=== PATIENT | male | born 1960 | race Caucasian/White ===

== ENCOUNTER 2017-08-15 13:44 | Inpatient (IN) | payer SELFPAY ==
[2017-08-15] VITALS (9 sets, daily range): BP systolic 109–139; BP diastolic 63–90; PULSE 104–125; RESP 18–20; TEMP 99–102.3; O2SAT 93–95
[~2017-08-15] VITALS: Ht 162.6 cm; Wt 77.3 kg
[2017-08-15] MEDS ORDERED: ACETAMINOPHEN 325 MG TAB PO ONE (15:15)
[2017-08-15 15:29] LABS: AUTOMATED NEUTROPHIL # 35.9 TH/MM3 (1.8-7.7); BASOPHIL % 0.1 % (0.0-2.0); HEMOGLOBIN 12.2 GM/DL (13.0-17.0); LYMPH % 1.8 % (9.0-44.0); LYMPHOCYTE # 0.7 TH/MM3 (1.0-4.8); MEAN CELL VOLUME 88.4 FL (80.0-100.0); MEAN CORPUSCULAR HEMOGLOBIN 29.1 PG (27.0-34.0); MEAN CORPUSCULAR HGB CONC 32.9 % (32.0-36.0); MEAN PLATELET VOLUME 8.1 FL (7.0-11.0); MONO % 2.7 % (0.0-8.0); NEUT % 95.4 % (16.0-70.0); PLATELET COUNT 268 TH/MM3 (150-450); RED BLOOD COUNT 4.19 MIL/MM3 (4.50-5.90); RED CELL DISTRIBUTION WIDTH 16.5 % (11.6-17.2); WHITE BLOOD COUNT 37.7 TH/MM3 (4.0-11.0)
[2017-08-15] MEDS ORDERED: SODIUM CHLOR 0.9% 1000 ML INJ 1,000 ML IV ONE ×2 (15:30→16:00)
[2017-08-15 15:47] LABS: INTERNATIONAL NORMALIZED RATIO 1.1 RATIO; PROTHROMBIN TIME - PATIENT 10.7 SEC (9.8-11.6)
[2017-08-15] MEDS ORDERED: cefTRIAXone INJ 1,000 MG in SODIUM CHLORIDE 0.9% INJ 100 ML IV ONE (16:00)
[2017-08-15] MEDS ORDERED: AZITHROMYCIN INJ 500 MG in SODIUM CHLOR 0.9% 250 ML INJ 250 ML IV ONE (16:00)
--- NOTE | 2017-08-15 16:07 | PD ---
HPI Chief Complaint: Chest Pain Time Seen by Provider: 15:14 Travel History International Travel<30 days: No Contact w/Intl Traveler<30days: No Traveled to known affect area: No History of Present Illness HPI 57-year-old male that presents to the ED for evaluation of sore throat and chest discomfort. Per patient he has had the sore throat since Monday and then developed the bilateral rib pain with cough and deep breaths for the past couple days. Patient has been taking gyoc-zav-rvocozu remedies with minimal relief. Patient has been found to have high fevers and chills. He denies any other medical issues. Denies smoking but states drinking alcohol on occasion. No medical issues as far as he knows. He takes no medication a daily basis. Has been taking vwvb-arn-jsawzyo remedies with minimal relief. She states that the chest discomfort only comes when he takes a deep breath or coughs. Bilateral to the ribs. Has no allergies to medication. Denies any heart history. States that most of his pain is mostly to the throat on the right side. Has no allergies to medication. Pain per patient is 7 out of 10. No recent travel. No blood thinner use. [facility] Past Medical History Medical History: Denies Significant Hx Tetanus Vaccination: Unknown Past Surgical History Surgical History: No Previous Surgery Social History Alcohol Use: Yes Tobacco Use: No Substance Use: No Allergies-Medications (Allergen,Severity, Reaction): Coded Allergies: No Known Allergies (Unverified Adverse Reaction, Unknown, 08/15/17) Reported Meds & Prescriptions Reported Meds & Active Scripts Active No Active Prescriptions or Reported Medications Review of Systems Except as stated in HPI: all other systems reviewed are Neg Physical Exam Narrative GENERAL: Well-nourished, well-developed patient in no apparent distress. SKIN: Warm and dry. HEAD: Atraumatic. Normocephalic. EYES: Pupils equal and round reactive to light and accommodation. No scleral icterus. No injection or drainage. ENT: No nasal bleeding or discharge. Mucous membranes pink and moist. TMs are clear with no sign of infection or perforation. No mastoid tenderness. Ear canals are intact bilaterally. No lymphadenopathy. Nostril mucosa is red and moist with clear mucus noted. No sinus tenderness to palpation noted. Tonsils are enlarged and swollen with erythema. No ulvua Deviation. Tongue is midline. NECK: Trachea midline. No JVD. No meningeal signs noted CARDIOVASCULAR: Regular rate and rhythm. RESPIRATORY: No accessory muscle use. Clear to auscultation. Breath sounds equal bilaterally. GASTROINTESTINAL: Abdomen soft, non-tender, nondistended. Hepatic and splenic margins not palpable. MUSCULOSKELETAL: Extremities without clubbing, cyanosis, or edema. No obvious deformities. Full range of motion of the upper and lower extremities bilaterally. 2+ pulses bilaterally. NEUROLOGICAL: Awake and alert. No obvious cranial nerve deficits. Motor grossly within normal limits. Five out of 5 muscle strength in the arms and legs. Normal speech. PSYCHIATRIC: Appropriate mood and affect; insight and judgment normal. Data Data Last Documented VS Vital Signs Date Time Temp Pulse Resp B/P (MAP) Pulse Ox O2 Delivery O2 Flow Rate FiO2 08/15/17 16:34 100.7 08/15/17 15:43 110 18 95 Room Air Orders Orders Electrocardiogram (08/15/17 ) Chest, Pa & Lat (08/15/17 ) Complete Blood Count With Diff (08/15/17 15:15) Comprehensive Metabolic Panel (08/15/17 15:15) Ckmb (Isoenzyme) Profile (08/15/17 15:15) Troponin I (08/15/17 15:15) Prothrombin Time / Inr (Pt) (08/15/17 15:15) Act Partial Throm Time (Ptt) (08/15/17 15:15) Blood Culture (08/15/17 15:15) Lipase (08/15/17 15:15) Urinalysis - C+S If Indicated (08/15/17 15:15) Potassium, Serum (K) (08/15/17 15:15) Iv Access Insert/Monitor (08/15/17 15:15) Ecg Monitoring (08/15/17 15:15) Oximetry (08/15/17 15:15) Acetaminophen (Tylenol) (08/15/17 15:15) Lactic Acid Sepsis Protocol (08/15/17 15:15) Sodium Chlor 0.9% 1000 Ml Inj (Ns 1000 M (08/15/17 15:30) Group A Rapid Strep Screen (08/15/17 15:29) Ceftriaxone Inj (Rocephin Inj) (08/15/17 16:00) Azithromycin Inj (Zithromax Inj) (08/15/17 16:00) Sodium Chlor 0.9% 1000 Ml Inj (Ns 1000 M (08/15/17 16:00) Strep Culture (Group A) (08/15/17 15:50) Admit To Inpatient (08/15/17 ) Vital Signs (Adult) Q4H (08/15/17 16:46) Activity Oob With Assistance (08/15/17 16:46) Certified Orthoptist / Telemetry .CONTINUOUS (08/15/17 16:46) Diet Heart Healthy (08/15/17 Dinner) Sodium Chlor 0.9% 1000 Ml Inj (Ns 1000 M (08/15/17 16:46) Sodium Chloride 0.9% Flush (Ns Flush) (08/15/17 17:00) Sodium Chloride 0.9% Flush (Ns Flush) (08/15/17 21:00) Basic Metabolic Panel (Bmp) (08/16/17 06:00) Complete Blood Count With Diff (08/16/17 06:00) Case Management Consult (08/15/17 16:46) Naloxone Inj (Narcan Inj) (08/15/17 17:00) Inpatient Certification (08/15/17 ) Admit Order (Ed Use Only) (08/15/17 16:48) Ceftriaxone Inj (Rocephin Inj) (08/16/17 17:00) Azithromycin Inj (Zithromax Inj) (08/16/17 17:00) Labs Laboratory Tests Test 08/15/17 15:00 08/15/17 15:30 White Blood Count 37.7 TH/MM3 Red Blood Count 4.19 MIL/MM3 Hemoglobin 12.2 GM/DL Hematocrit 37.0 % Mean Corpuscular Volume 88.4 FL Mean Corpuscular Hemoglobin 29.1 PG Mean Corpuscular Hemoglobin Concent 32.9 % Red Cell Distribution Width 16.5 % Platelet Count 268 TH/MM3 Mean Platelet Volume 8.1 FL Neutrophils (%) (Auto) 95.4 % Lymphocytes (%) (Auto) 1.8 % Monocytes (%) (Auto) 2.7 % Eosinophils (%) (Auto) 0.0 % Basophils (%) (Auto) 0.1 % Neutrophils # (Auto) 35.9 TH/MM3 Lymphocytes # (Auto) 0.7 TH/MM3 Monocytes # (Auto) 1.0 TH/MM3 Eosinophils # (Auto) 0.0 TH/MM3 Basophils # (Auto) 0.0 TH/MM3 CBC Comment AUTO DIFF Differential Total Cells Counted 100 Neutrophils % (Manual) 89 % Band Neutrophils % 10 % Monocytes % 1 % Neutrophils # (Manual) 37.3 TH/MM3 Differential Comment FINAL DIFF MANUAL Toxic Granulation 2+ Dohle Bodies PRESENT Platelet Estimate NORMAL Platelet Morphology Comment NORMAL Basophilic Stippling FAINT Spherocytes OCC Prothrombin Time 10.7 SEC Prothromb Time International Ratio 1.1 RATIO Activated Partial Thromboplast Time 26.8 SEC Blood Urea Nitrogen 12 MG/DL Creatinine 0.90 MG/DL Random Glucose 109 MG/DL Total Protein 8.3 GM/DL Albumin 2.7 GM/DL Calcium Level 9.0 MG/DL Alkaline Phosphatase 112 U/L Aspartate Amino Transf (AST/SGOT) 40 U/L Alanine Aminotransferase (ALT/SGPT) 56 U/L Total Bilirubin 0.5 MG/DL Sodium Level 133 MEQ/L Potassium Level 4.0 MEQ/L Chloride Level 98 MEQ/L Carbon Dioxide Level 23.4 MEQ/L Anion Gap 12 MEQ/L Estimat Glomerular Filtration Rate 87 ML/MIN Lactic Acid Level 2.7 mmol/L Total Creatine Kinase 35 U/L Troponin I LESS THAN 0.02 NG/ML Lipase 38 U/L Urine Color YELLOW Urine Turbidity CLEAR Urine pH 6.0 Urine Specific [place] 1.033 Urine Protein 100 mg/dL Urine Glucose (UA) NEG mg/dL Urine Ketones TRACE mg/dL Urine Occult Blood SMALL Urine Nitrite NEG Urine Bilirubin NEG Urine Urobilinogen 4.0 MG/DL Urine Leukocyte Esterase NEG Urine RBC 1 /hpf Urine WBC 3 /hpf Urine Squamous Epithelial Cells 1 /hpf Urine Bacteria FEW /hpf Urine Hyaline Casts 2 /lpf Urine Mucus FEW /lpf Microscopic Urinalysis Comment CULT NOT INDICATED MDM Medical Decision Making Medical Screen Exam Complete: Yes Emergency Medical Condition: Yes Medical Record Reviewed: Yes Interpretation(s) CBC & BMP Diagram 08/15/17 15:00 Total Protein 8.3 H, Albumin 2.7 L, Calcium Level 9.0, Alkaline Phosphatase 112 , Aspartate Amino Transf (AST/SGOT) 40 H, Alanine Aminotransferase (ALT/SGPT) 56 , Total Bilirubin 0.5 Last Impressions Chest X-Ray 08/15/17 0000 Signed Impressions: Service Date/Time: Tuesday, August 15, 2017 15:57 - CONCLUSION: 1. Diffuse interstitial prominence with patchy bilateral lower lobe airspace disease. Differential considerations bilateral lower lobe pneumonia versus aspiration ++/- interstitial pneumonia or atypical infection given above history. Fam Atkins MD lactic acid elevated strep negative Differential Diagnosis Sepsis versus strep throat versus pharyngitis versus pneumonia versus abscess Narrative Course 57-year-old male that presents to the ED for evaluation of sore throat and chest discomfort. Patient was properly examined and was found to have signs and symptoms concerning for sepsis. Patient is tachycardic as well as has a high fever. Labs and imaging order. Patient was given Tylenol as well as fluids here. Labs and imaging show highly elevated white blood cell count, lactic acidosis as well as appears to be bilateral pneumonia. Strep negative. Likely pneumonia because of the symptoms. At this time recommendation is admission for further eval and IV antibiotics. Patient and family agree with this. Of note patient Lebanese speaker only but family is able to translate for the patient. They also feel comfortable with my Lebanese and declined translating services. Case discussed with Dr. Rodriguez who agrees to admission to the medical service Sepsis Criteria SIRS Criteria (2 or more): Temp > 100.9 or < 96.8, Heart rate over 90, WBC > 38279, < 4000 or > 10% bands Sepsis Criteria (SIRS+source): Infect source susp/known Severe Sepsis (+one): Lactate >2 Criteria Outcome: Meets severe sepsis criteria Diagnosis Primary Impression: Pneumonia Qualified Codes: J18.1 - Lobar pneumonia, unspecified organism Additional Impression: Sepsis Qualified Codes: A41.9 - Sepsis, unspecified organism Admitting Information Admitting Physician Requests: Admit Scripts No Active Prescriptions or Reported MedDaryl Perez Aug 15, 2017 16:07
[2017-08-15 16:13] LABS: BACTERIA, URINE FEW /hpf; BILIRUBIN, URINE NEG (NEG); BLOOD, URINE SMALL (NEG); GLUCOSE,URINE NEG (NEG); HYALINE CAST, URINE 2 /lpf (RARE); KETONE, URINE TRACE mg/dL (NEG); MUCUS URINE FEW /lpf (OCC); NITRITE,URINE NEG (NEG); SQUAMOUS EPITHELIAL CELL URINE 1 /hpf (0-5); URINE COLOR YELLOW (YELLW/STRAW); URINE LEUKOCYTE ESTERASE NEG (NEG)
--- NOTE | 2017-08-15 16:13 | RADRPT ---
EXAM DATE/TIME: 08/15/2017 15:57 [facility] COMPARISON: No previous studies available for comparison. INDICATIONS : Cough, congestion, fever, chest pain. MEDICAL HISTORY : None. SURGICAL HISTORY : None. ENCOUNTER: Initial ACUITY: 3 days PAIN SCORE: 4/10 LOCATION: Bilateral chest FINDINGS: Poor inspiratory effort. Diffuse interstitial prominence with bilateral lower lobe patchy airspace di sease. Cardiomediastinal contours are within normal limits. Bony thorax is intact. CONCLUSION: 1. Diffuse interstitial prominence with patchy bilateral lower lobe airspace disease. Differential co nsiderations bilateral lower lobe pneumonia versus aspiration +/- interstitial pneumonia or atypical infection given above history. Fam Atkins MD on August 15, 2017 at 16:08 Board Certified Radiologist. This report was verified electronically.
[2017-08-15 16:26] LABS: BANDS 10 % (0-6); DOHLE BODIES PRESENT (NONE SEEN); LACTIC ACID SEPSIS PROTOCOL 2.7 mmol/L (0.4-2.0); MONOCYTES 1 % (0-8); NEUTROPHIL # MANUAL DIFF 37.3 TH/MM3 (1.8-7.7); POLYS (SEG NEUTROPHILS) 89 % (16-70); TOXIC GRANULATION 2+ (NORMAL)
[2017-08-15 16:27] LABS: ALBUMIN 2.7 GM/DL (3.4-5.0); ALT (GPT) 56 U/L (12-78); AST (GOT) 40 U/L (15-37); BICARBONATE 23.4 MEQ/L (21.0-32.0); BLOOD UREA NITROGEN 12 MG/DL (7-18); CHLORIDE 98 MEQ/L (98-107); GLOMERULAR FILTRATION RATE 87 ML/MIN (>89); GLUCOSE,RANDOM 109 MG/DL (74-106); SODIUM (NA) 133 MEQ/L (136-145); SPHEROCYTES OCC (NORMAL)
[2017-08-15 16:31] LABS: ALKALINE PHOSPHATASE 112 U/L (45-117); TOTAL BILIRUBIN ADULT 0.5 MG/DL (0.2-1.0); TOTAL PROTEIN 8.3 GM/DL (6.4-8.2); TROPONIN I LESS THAN 0.02 NG/ML (0.02-0.05)
[2017-08-15] MEDS ORDERED: SODIUM CHLOR 0.9% 1000 ML INJ 1,000 ML IV SCH (16:46)
[2017-08-15] MEDS ORDERED: SODIUM CHLORIDE 0.9% FLUSH 10 ML FLUSH IV FLUSH PRN (17:00)
[2017-08-15] MEDS ORDERED: NALOXONE HCL 0.4 MG/ML AMP IV PUSH PRN (17:00)
--- NOTE | 2017-08-15 17:28 | PD ---
Physical Exam Narrative GENERAL: 57-year-old male in no apparent distress SKIN: Focused skin assessment warm/dry. HEAD: Atraumatic. Normocephalic. EYES: Pupils equal and round. No scleral icterus. No injection or drainage. ENT: No nasal bleeding or discharge. Mucous membranes pink and moist. NECK: Trachea midline. CARDIOVASCULAR: Regular rate and rhythm. RESPIRATORY: No accessory muscle use. No increased effort MUSCULOSKELETAL: No obvious deformities. No clubbing. No cyanosis. NEUROLOGICAL: Awake and alert. No obvious cranial nerve deficits. Motor grossly within normal limits. Normal speech. Data Data Last Documented VS Vital Signs Date Time Temp Pulse Resp B/P (MAP) Pulse Ox O2 Delivery O2 Flow Rate FiO2 08/15/17 16:34 100.7 08/15/17 15:43 110 18 95 Room Air Orders Orders Electrocardiogram (08/15/17 ) Chest, Pa & Lat (08/15/17 ) Complete Blood Count With Diff (08/15/17 15:15) Comprehensive Metabolic Panel (08/15/17 15:15) Ckmb (Isoenzyme) Profile (08/15/17 15:15) Troponin I (08/15/17 15:15) Prothrombin Time / Inr (Pt) (08/15/17 15:15) Act Partial Throm Time (Ptt) (08/15/17 15:15) Blood Culture (08/15/17 15:15) Lipase (08/15/17 15:15) Urinalysis - C+S If Indicated (08/15/17 15:15) Potassium, Serum (K) (08/15/17 15:15) Iv Access Insert/Monitor (08/15/17 15:15) Ecg Monitoring (08/15/17 15:15) Oximetry (08/15/17 15:15) Acetaminophen (Tylenol) (08/15/17 15:15) Lactic Acid Sepsis Protocol (08/15/17 15:15) Sodium Chlor 0.9% 1000 Ml Inj (Ns 1000 M (08/15/17 15:30) Group A Rapid Strep Screen (08/15/17 15:29) Ceftriaxone Inj (Rocephin Inj) (08/15/17 16:00) Azithromycin Inj (Zithromax Inj) (08/15/17 16:00) Sodium Chlor 0.9% 1000 Ml Inj (Ns 1000 M (08/15/17 16:00) Strep Culture (Group A) (08/15/17 15:50) Admit To Inpatient (08/15/17 ) Vital Signs (Adult) Q4H (08/15/17 16:46) Activity Oob With Assistance (08/15/17 16:46) Mental Measurements Teacher / Telemetry .CONTINUOUS (08/15/17 16:46) Diet Heart Healthy (08/15/17 Dinner) Sodium Chlor 0.9% 1000 Ml Inj (Ns 1000 M (08/15/17 16:46) Sodium Chloride 0.9% Flush (Ns Flush) (08/15/17 17:00) Sodium Chloride 0.9% Flush (Ns Flush) (08/15/17 21:00) Basic Metabolic Panel (Bmp) (08/16/17 06:00) Complete Blood Count With Diff (08/16/17 06:00) Case Management Consult (08/15/17 16:46) Naloxone Inj (Narcan Inj) (08/15/17 17:00) Inpatient Certification (08/15/17 ) Admit Order (Ed Use Only) (08/15/17 16:48) Ceftriaxone Inj (Rocephin Inj) (08/16/17 17:00) Azithromycin Inj (Zithromax Inj) (08/16/17 17:00) Labs Laboratory Tests Test 08/15/17 15:00 08/15/17 15:30 White Blood Count 37.7 TH/MM3 Red Blood Count 4.19 MIL/MM3 Hemoglobin 12.2 GM/DL Hematocrit 37.0 % Mean Corpuscular Volume 88.4 FL Mean Corpuscular Hemoglobin 29.1 PG Mean Corpuscular Hemoglobin Concent 32.9 % Red Cell Distribution Width 16.5 % Platelet Count 268 TH/MM3 Mean Platelet Volume 8.1 FL Neutrophils (%) (Auto) 95.4 % Lymphocytes (%) (Auto) 1.8 % Monocytes (%) (Auto) 2.7 % Eosinophils (%) (Auto) 0.0 % Basophils (%) (Auto) 0.1 % Neutrophils # (Auto) 35.9 TH/MM3 Lymphocytes # (Auto) 0.7 TH/MM3 Monocytes # (Auto) 1.0 TH/MM3 Eosinophils # (Auto) 0.0 TH/MM3 Basophils # (Auto) 0.0 TH/MM3 CBC Comment AUTO DIFF Differential Total Cells Counted 100 Neutrophils % (Manual) 89 % Band Neutrophils % 10 % Monocytes % 1 % Neutrophils # (Manual) 37.3 TH/MM3 Differential Comment FINAL DIFF MANUAL Toxic Granulation 2+ Dohle Bodies PRESENT Platelet Estimate NORMAL Platelet Morphology Comment NORMAL Basophilic Stippling FAINT Spherocytes OCC Prothrombin Time 10.7 SEC Prothromb Time International Ratio 1.1 RATIO Activated Partial Thromboplast Time 26.8 SEC Blood Urea Nitrogen 12 MG/DL Creatinine 0.90 MG/DL Random Glucose 109 MG/DL Total Protein 8.3 GM/DL Albumin 2.7 GM/DL Calcium Level 9.0 MG/DL Alkaline Phosphatase 112 U/L Aspartate Amino Transf (AST/SGOT) 40 U/L Alanine Aminotransferase (ALT/SGPT) 56 U/L Total Bilirubin 0.5 MG/DL Sodium Level 133 MEQ/L Potassium Level 4.0 MEQ/L Chloride Level 98 MEQ/L Carbon Dioxide Level 23.4 MEQ/L Anion Gap 12 MEQ/L Estimat Glomerular Filtration Rate 87 ML/MIN Lactic Acid Level 2.7 mmol/L Total Creatine Kinase 35 U/L Troponin I LESS THAN 0.02 NG/ML Lipase 38 U/L Urine Color YELLOW Urine Turbidity CLEAR Urine pH 6.0 Urine Specific [place] 1.033 Urine Protein 100 mg/dL Urine Glucose (UA) NEG mg/dL Urine Ketones TRACE mg/dL Urine Occult Blood SMALL Urine Nitrite NEG Urine Bilirubin NEG Urine Urobilinogen 4.0 MG/DL Urine Leukocyte Esterase NEG Urine RBC 1 /hpf Urine WBC 3 /hpf Urine Squamous Epithelial Cells 1 /hpf Urine Bacteria FEW /hpf Urine Hyaline Casts 2 /lpf Urine Mucus FEW /lpf Microscopic Urinalysis Comment CULT NOT INDICATED MDM Supervised Visit with OMAR: Yes Interpretation(s) CBC & BMP Diagram 08/15/17 15:00 Total Protein 8.3 H, Albumin 2.7 L, Calcium Level 9.0, Alkaline Phosphatase 112 , Aspartate Amino Transf (AST/SGOT) 40 H, Alanine Aminotransferase (ALT/SGPT) 56 , Total Bilirubin 0.5 Last 24 hours Impressions Chest X-Ray 08/15/17 0000 Signed Impressions: Service Date/Time: Tuesday, August 15, 2017 15:57 - CONCLUSION: 1. Diffuse interstitial prominence with patchy bilateral lower lobe airspace disease. Differential considerations bilateral lower lobe pneumonia versus aspiration ++/- interstitial pneumonia or atypical infection given above history. Fam Atkins MD Narrative Course I, Dr. sen, have reviewed the advance practice practitioner's documentation and am in agreement, met with the patient face to face, made the diagnosis, and the medical decision making was done by me. *My assessment and Findings: 57-year-old male with pneumonia with concurrent sepsis without associated hypotension. He was given antibiotics and IV fluids and will be admitted to the hospital for further care Sepsis Criteria SIRS Criteria (2 or more): Temp > 100.9 or < 96.8, Heart rate over 90, WBC > 28484, < 4000 or > 10% bands Sepsis Criteria (SIRS+source): Infect source susp/known Severe Sepsis (+one): Lactate >2 Criteria Outcome: Meets severe sepsis criteria Diagnosis Primary Impression: Pneumonia Qualified Codes: J18.1 - Lobar pneumonia, unspecified organism Additional Impression: Sepsis Qualified Codes: A41.9 - Sepsis, unspecified organism Admitting Information Admitting Physician Requests: Admit Scripts No Active Prescriptions or Reported Meds July Sen MD Aug 15, 2017 17:27
--- NOTE | 2017-08-15 19:44 | HHI.HP ---
HPI Service [facility] Primary Care Physician No Primary Care Physician Admission Diagnosis acute bilateral pneumonia, severe sepsis Diagnoses: Travel History International Travel<30 Days: No Contact w/Intl Traveler <30 Da: No Traveled to Known Affected Are: No History of Present Illness hx from patient, ER PA communication and review of records pt is a jamaican speaker and family at bedside help translate per patient's choice having pain in his chest and bilateral ribs starting yesterday this am was could not breathe no cough no sputum fever no nausea, no vomiting, no diarrhea no long distance travel no sick contacts no NH or [facility] hx claims short of breath is only this am but he worked on monday afternoon and could not work today or yesterday works in [employer] business was taking nyquil at home for soar throat Review of Systems Except as stated in HPI: all other systems reviewed are Neg Past Family Social History Past Medical History none Past Surgical History none Allergies: Coded Allergies: No Known Allergies (Unverified Allergy, Unknown, 08/15/17) Family History none that he knows of Social History never smoked 3- 4 beers a day ; last drink was on monday- about 3 days ago no drugs Physical Exam Vital Signs Vital Signs Date Time Temp Pulse Resp B/P (MAP) Pulse Ox O2 Delivery O2 Flow Rate FiO2 08/15/17 18:37 Nasal Cannula 3.00 08/15/17 18:15 99.0 109 19 112/64 (80) 93 08/15/17 18:09 104 18 109/63 (78) 95 Nasal Cannula 2.00 08/15/17 17:47 104 18 109/67 (81) 95 Nasal Cannula 08/15/17 16:34 100.7 08/15/17 15:43 102.1 110 18 128/90 (103) 95 Room Air 08/15/17 15:43 102.1 110 18 128/90 (103) 95 Room Air 08/15/17 15:24 18 Room Air 08/15/17 14:26 102.3 125 20 139/76 (97) 95 Physical Exam GENERAL: This is a well-nourished, well-developed patient, in moderate distress from dyspnea- SKIN: warm, tactile temp, red HEAD: Atraumatic. Normocephalic. No temporal or scalp tenderness. EYES: No scleral icterus. No injection or drainage. ENT: Nose without bleeding, purulent drainage or septal hematoma. Airway patent. NECK: Trachea midline. No JVD Supple, nontender, no meningeal signs. CARDIOVASCULAR: Regular rate and rhythm without murmurs, gallops, or rubs. RESPIRATORY: bilateral crepitations, up to mid lung, shallow breathing, + JVD GASTROINTESTINAL: Abdomen soft, non-tender, nondistended. No guarding. MUSCULOSKELETAL: Extremities without clubbing, cyanosis, or edema. No calf tenderness. NEUROLOGICAL: Awake and alert. Motor and sensory grossly within normal limits. Normal speech. Laboratory Laboratory Tests Test 08/15/17 15:00 08/15/17 15:30 08/15/17 17:40 White Blood Count 37.7 Red Blood Count 4.19 Hemoglobin 12.2 Hematocrit 37.0 Mean Corpuscular Volume 88.4 Mean Corpuscular Hemoglobin 29.1 Mean Corpuscular Hemoglobin Concent 32.9 Red Cell Distribution Width 16.5 Platelet Count 268 Mean Platelet Volume 8.1 Neutrophils (%) (Auto) 95.4 Lymphocytes (%) (Auto) 1.8 Monocytes (%) (Auto) 2.7 Eosinophils (%) (Auto) 0.0 Basophils (%) (Auto) 0.1 Neutrophils # (Auto) 35.9 Lymphocytes # (Auto) 0.7 Monocytes # (Auto) 1.0 Eosinophils # (Auto) 0.0 Basophils # (Auto) 0.0 CBC Comment AUTO DIFF Differential Total Cells Counted 100 Neutrophils % (Manual) 89 Band Neutrophils % 10 Monocytes % 1 Neutrophils # (Manual) 37.3 Differential Comment FINAL DIFF MANUAL Toxic Granulation 2+ Dohle Bodies PRESENT Platelet Estimate NORMAL Platelet Morphology Comment NORMAL Basophilic Stippling FAINT Spherocytes OCC Prothrombin Time 10.7 Prothromb Time International Ratio 1.1 Activated Partial Thromboplast Time 26.8 Blood Urea Nitrogen 12 Creatinine 0.90 Random Glucose 109 Total Protein 8.3 Albumin 2.7 Calcium Level 9.0 Alkaline Phosphatase 112 Aspartate Amino Transf (AST/SGOT) 40 Alanine Aminotransferase (ALT/SGPT) 56 Total Bilirubin 0.5 Sodium Level 133 Potassium Level 4.0 Chloride Level 98 Carbon Dioxide Level 23.4 Anion Gap 12 Estimat Glomerular Filtration Rate 87 Lactic Acid Level 2.7 2.1 Total Creatine Kinase 35 Troponin I LESS THAN 0.02 Lipase 38 Urine Color YELLOW Urine Turbidity CLEAR Urine pH 6.0 Urine Specific [place] 1.033 Urine Protein 100 Urine Glucose (UA) NEG Urine Ketones TRACE Urine Occult Blood SMALL Urine Nitrite NEG Urine Bilirubin NEG Urine Urobilinogen 4.0 Urine Leukocyte Esterase NEG Urine RBC 1 Urine WBC 3 Urine Squamous Epithelial Cells 1 Urine Bacteria FEW Urine Hyaline Casts 2 Urine Mucus FEW Microscopic Urinalysis Comment CULT NOT INDICATED Date/Time Source Procedure Growth Status 08/15/17 15:05 Blood Peripheral Aerobic Blood Culture Pending Received 08/15/17 15:05 Blood Peripheral Anaerobic Blood Culture Pending Received 08/15/17 15:50 Throat Group A Streptococcus Screen Pending Received Result Diagram: 08/15/17 1500 08/15/17 1500 Imaging Last 48 hours Impressions Chest X-Ray 08/15/17 0000 Signed Impressions: Service Date/Time: Tuesday, August 15, 2017 15:57 - CONCLUSION: 1. Diffuse interstitial prominence with patchy bilateral lower lobe airspace disease. Differential considerations bilateral lower lobe pneumonia versus aspiration ++/- interstitial pneumonia or atypical infection given above history. MD Mu Holland VTE Risk Assessment Caprini VTE Risk Assessment: Mod/High Risk (score >= 2) Caprini Risk Assessment Model Point Value = 1 Point Value = 2 Point Value = 3 Point Value = 5 Age 41-60 Minor surgery BMI > 25 kg/m2 Swollen legs Varicose veins or History of unexplained or recurrent spontaneous Oral contraceptives or hormone replacement Sepsis (< 1 month) Serious lung disease, including pneumonia (< 1 month) Abnormal pulmonary function Acute myocardial infarction Congestive heart failure (< 1 month) History of inflammatory bowel disease Medical patient at bed rest Age 61-74 Arthroscopic surgery Major open surgery (> 45 min) Laparoscopic surgery (> 45 min) Malignancy Confined to bed (> 72 hours) Immobilizing plaster cast Central venous access Age >= 75 History of VTE Family history of VTE Factor V Leiden Prothrombin [id number] Lupus anticoagulant Anticardiolipin antibodies Elevated serum homocysteine Heparin-induced thrombocytopenia Other congenital or acquired thrombophilia Stroke (< 1 month) Elective arthroplasty Hip, pelvis, or leg fracture Acute spinal cord injury (< 1 month) Prophylaxis Regimen Total Risk Factor Score Risk Level Prophylaxis Regimen 0-1 Low Early ambulation 2 Moderate Order ONE of the following: *Sequential Compression Device (SCD) *Heparin 5000 units SQ BID 3-4 Higher Order ONE of the following medications: *Heparin 5000 units SQ TID *Enoxaparin/Lovenox 40 mg SQ daily (WT < 150 kg, CrCl > 30 mL/min) *Enoxaparin/Lovenox 30 mg SQ daily (WT < 150 kg, CrCl > 10-29 mL/min) *Enoxaparin/Lovenox 30 mg SQ BID (WT < 150 kg, CrCl > 30 mL/min) AND/OR *Sequential Compression Device (SCD) 5 or more Highest Order ONE of the following medications: *Heparin 5000 units SQ TID (Preferred with Epidurals) *Enoxaparin/Lovenox 40 mg SQ daily (WT < 150 kg, CrCl > 30 mL/min) *Enoxaparin/Lovenox 30 mg SQ daily (WT < 150 kg, CrCl > 10-29 mL/min) *Enoxaparin/Lovenox 30 mg SQ BID (WT < 150 kg, CrCl > 30 mL/min) AND *Sequential Compression Device (SCD) Assessment and Plan Assessment and Plan Impression: severe sepsis- source, pneumonia respiratory distress impending ARDS Hypoxia due to sepsis possible underlying heart failure with fluid overload possible impending etoh withdrawal Plan: received 2 L fluid bolus in ER and at maintainence rate at 100cc/hr will stop for now bnp stat bedside echo if possible by intesivist for ivc /hydration status received rocephin and azithro in er switched to levofloxacin 750mg iv q24hrs give first dose levofloxacin po tonight ciwa thiamine transfer to [facility] breeding technician consult- discussed with breeding technician on the phone dvt prophylaxis with lovenox Discussed Condition With patient, family members at bedside, ER PA, nursing staff Physician Certification 2 Midnight Certification Type: Admission for Inpatient Services Order for Inpatient Services The services are ordered in accordance with Medicare regulations or non- Medicare payer requirements, as applicable. In the case of services not specified as inpatient-only, they are appropriately provided as inpatient services in accordance with the 2-midnight benchmark. Estimated LOS (days): 4 days is the estimated time the patient will need to remain in the hospital, assuming treatment plan goals are met and no additional complications. Post-Hospital Plan: Home Oung,Twethida MD Aug 15, 2017 19:44
[2017-08-15] MEDS ORDERED: THIAMINE HCL 100 MG TAB PO ONE (20:15)
[2017-08-15] MEDS ORDERED: LORazepam 1 MG TAB PO PRN (20:15)
[2017-08-15] MEDS ORDERED: LORazepam 2 MG TAB PO PRN (20:15)
[2017-08-15] MEDS ORDERED: LEVOFLOXACIN 750 MG TAB PO ONE (20:15)
[2017-08-15] MEDS ORDERED: LORazepam 2 MG/ML VIAL IV PUSH PRN ×3 (20:15)
[2017-08-15] MEDS ORDERED: FLUMAZENIL 0.5 MG/5 ML VIAL IV PUSH PRN (20:15)
[2017-08-15] MEDS: SODIUM CHLORIDE 0.9% FLUSH 10 ML FLUSH IV FLUSH SCH (21:18)
--- NOTE | 2017-08-15 21:20 | PD.CONS ---
HPI Service Critical Care Medicine Consult Requested By Primary Care Physician No Primary Care Physician History of Present Illness 57-year-old Tajik-speaking only male presents for evaluation of sore throat and chest discomfort. Per patient he has had the sore throat since Monday and then developed the bilateral rib pain with cough and deep breaths for the past couple days. Patient has been taking [id number] medication with minimal relief. He has been found to have high fevers and chills. He denies any other medical issues. Denies smoking but states drinking alcohol on a daily occasion. No medical issues as far as he knows. Review of Systems Constitutional: COMPLAINS OF: Diaphoretic episodes, Fatigue, Fever, Chills, Night Sweats, DENIES: Weight gain, Weight loss, Dizziness, Change in appetite Endocrine: DENIES: Heat/cold intolerance, Polydipsia, Polyuria, Polyphagia Eyes: DENIES: Blurred vision, Diplopia, Eye inflammation, Eye pain, Vision loss , Photosensitivity, Double Vision Ears, nose, mouth, throat: DENIES: Tinnitus, Hearing loss, Vertigo, Nasal discharge, Oral lesions, Throat pain, Hoarseness, Ear Pain, Running Nose, Epistaxis, Sinus Pain, Toothache, Odynophagia Respiratory: COMPLAINS OF: Cough, Sputum production, Shortness of breath, DENIES: Apneas, Snoring, Wheezing, Hemoptysis Cardiovascular: COMPLAINS OF: Chest pain, Dyspnea on Exertion, DENIES: Palpitations, Syncope, PND, Lower Extremity Edema, Orthopnea, Claudication Gastrointestinal: DENIES: Abdominal pain, Black stools, Bloody stools, Constipation, Diarrhea, Nausea, Vomiting, Difficulty Swallowing, Anorexia Genitourinary: DENIES: Sexual dysfunction, Urinary frequency, Urinary incontinence, Urgency, Hematuria, Dysuria, Nocturia, Penile Discharge, Testicular Pain, Testicular Swelling Musculoskeletal: DENIES: Joint pain, Muscle aches, Stiffness, Joint Swelling, Back pain, Neck pain Integumentary: DENIES: Abnormal pigmentation, Nail changes, Pruritus, Rash Hematologic/lymphatic: DENIES: Bruising, Lymphadenopathy Immunologic/allergic: DENIES: Eczema, Urticaria Neurologic: DENIES: Abnormal gait, Headache, Localized weakness, Paresthesias, Seizures, Speech Problems, Tremor, Poor Balance Psychiatric: DENIES: Anxiety, Confusion, Mood changes, Depression, Hallucinations, Agitation, Suicidal Ideation, Homicidal Ideation, Delusions Past Family Social History Allergies: Coded Allergies: No Known Allergies (Unverified Allergy, Unknown, 08/15/17) Past Medical History No significant past medical history Past Surgical History None Reported Medications Reported Meds & Active Scripts Active No Active Prescriptions or Reported Medications Active Ordered Medications Current Medications Medications (Trade) Dose Ordered Sig/Santo Route PRN Reason Start Time Stop Time Status Last Admin Dose Admin Sodium Chloride (NS Flush) 2 ml UNSCH PRN IV FLUSH FLUSH AFTER USING IV ACCESS 08/15/17 17:00 Sodium Chloride (NS Flush) 2 ml BID IV FLUSH 08/15/17 21:00 08/15/17 21:18 Naloxone HCl (Narcan Inj) 0.4 mg UNSCH PRN IV PUSH SEE LABEL COMMENTS 08/15/17 17:00 Thiamine HCl (Vitamin B1) 100 mg DAILY PO 08/16/17 09:00 Flumazenil (Romazicon Inj) 0.2 mg Q1M PRN IV PUSH SEE LABEL COMMENTS 08/15/17 20:15 Lorazepam (Ativan) 1 mg Q4H PRN PO CIWA 8 - 10 08/15/17 20:15 Lorazepam (Ativan Inj) 1 mg Q4H PRN IV PUSH CIWA 8 - 10 08/15/17 20:15 Lorazepam (Ativan) 2 mg Q2H PRN PO CIWA 11-14 08/15/17 20:15 Lorazepam (Ativan Inj) 2 mg Q2H PRN IV PUSH CIWA 11-14 08/15/17 20:15 Lorazepam (Ativan Inj) 2 mg Q1H PRN IV PUSH CIWA 15-20 08/15/17 20:15 Lorazepam (Ativan Inj) 2 mg Q15M PRN IV PUSH CIWA > 20 08/15/17 20:15 Enoxaparin Sodium (Lovenox Inj) 40 mg Q24H SQ 08/16/17 09:00 Pneumococcal Polyvalent Vaccine (Pneumovax-23 Inj) 25 mcg ONCE ONCE IM 08/16/17 10:00 08/16/17 10:01 Influenza Virus Vaccine (Flu (Quadrivalent) Vaccine Inj) 0.5 ml ONCE ONCE IM 08/16/17 10:00 08/16/17 10:01 Sodium Chloride 1,000 ml @ 155 mls/hr Q6H28M IV 08/15/17 21:30 08/15/17 21:30 Pharmacy Profile Note 0 ml @ 0 mls/hr UNSCH OTHER 08/15/17 21:30 Piperacillin Sod/ Tazobactam Sod 100 ml @ 200 mls/hr Q6H IV 08/15/17 22:00 08/15/17 22:00 Azithromycin 500 mg/Sodium Chloride 250 ml @ 250 mls/hr Q24H IV 08/16/17 16:00 Miscellaneous Information Patient in critical care unit? Ass... [id number] 08/15/17 21:45 Chlorhexidine Gluconate (Chlorhexidine 2% Cloth) 3 pack DAILY@04 TOPICAL 08/16/17 04:00 08/20/17 04:01 Chlorhexidine Gluconate (Chlorhexidine 2% Cloth) 3 pack UNSCH PRN TOPICAL HYGIENIC CARE 08/15/17 21:45 08/20/17 21:31 Family History No family history significant of early coronary artery disease or malignancy Social History Alcohol Use: Yes, occasionally 2-3 beers a day Tobacco Use: No Substance Use: No Physical Exam Vital Signs Vital Signs Date Time Temp Pulse Resp B/P (MAP) Pulse Ox O2 Delivery O2 Flow Rate FiO2 08/15/17 20:57 101.1 114 20 127/80 (96) 08/15/17 18:37 Nasal Cannula 3.00 08/15/17 18:15 99.0 109 19 112/64 (80) 93 08/15/17 18:09 104 18 109/63 (78) 95 Nasal Cannula 2.00 08/15/17 17:47 104 18 109/67 (81) 95 Nasal Cannula 08/15/17 16:34 100.7 08/15/17 15:43 102.1 110 18 128/90 (103) 95 Room Air 08/15/17 15:43 102.1 110 18 128/90 (103) 95 Room Air 08/15/17 15:24 18 Room Air 08/15/17 14:26 102.3 125 20 139/76 (97) 95 Physical Exam GENERAL: Well-nourished, well-developed patient. In moderate distress SKIN: Warm and dry. HEAD: Normocephalic. EYES: No scleral icterus. No injection or drainage. NECK: Supple, trachea midline. No JVD or lymphadenopathy. CARDIOVASCULAR: Regular rate and rhythm without murmurs, gallops, or rubs. RESPIRATORY: Breath sounds equal bilaterally. No accessory muscle use. Rales and rhonchi bilaterally GASTROINTESTINAL: Abdomen soft, non-tender, nondistended. MUSCULOSKELETAL: No cyanosis, or edema. BACK: Nontender without obvious deformity. NEURO EXAM: GCS: 15 Mental Status: The patient is alert and oriented to person, place, and time with normal speech. Cranial Nerves: Visual acuity intact bilaterally. Visual torres normal in all quadrants. Pupils are round, reactive to light. Extraocular movements are intact without ptosis. Hearing is normal bilaterally. Voice is normal. Tongue protrudes midline and moves symmetrically. Laboratory Laboratory Tests Test 08/15/17 15:00 08/15/17 15:30 08/15/17 17:40 White Blood Count 37.7 Red Blood Count 4.19 Hemoglobin 12.2 Hematocrit 37.0 Mean Corpuscular Volume 88.4 Mean Corpuscular Hemoglobin 29.1 Mean Corpuscular Hemoglobin Concent 32.9 Red Cell Distribution Width 16.5 Platelet Count 268 Mean Platelet Volume 8.1 Neutrophils (%) (Auto) 95.4 Lymphocytes (%) (Auto) 1.8 Monocytes (%) (Auto) 2.7 Eosinophils (%) (Auto) 0.0 Basophils (%) (Auto) 0.1 Neutrophils # (Auto) 35.9 Lymphocytes # (Auto) 0.7 Monocytes # (Auto) 1.0 Eosinophils # (Auto) 0.0 Basophils # (Auto) 0.0 CBC Comment AUTO DIFF Differential Total Cells Counted 100 Neutrophils % (Manual) 89 Band Neutrophils % 10 Monocytes % 1 Neutrophils # (Manual) 37.3 Differential Comment FINAL DIFF MANUAL Toxic Granulation 2+ Dohle Bodies PRESENT Platelet Estimate NORMAL Platelet Morphology Comment NORMAL Basophilic Stippling FAINT Spherocytes OCC Prothrombin Time 10.7 Prothromb Time International Ratio 1.1 Activated Partial Thromboplast Time 26.8 Blood Urea Nitrogen 12 Creatinine 0.90 Random Glucose 109 Total Protein 8.3 Albumin 2.7 Calcium Level 9.0 Alkaline Phosphatase 112 Aspartate Amino Transf (AST/SGOT) 40 Alanine Aminotransferase (ALT/SGPT) 56 Total Bilirubin 0.5 Sodium Level 133 Potassium Level 4.0 Chloride Level 98 Carbon Dioxide Level 23.4 Anion Gap 12 Estimat Glomerular Filtration Rate 87 Lactic Acid Level 2.7 2.1 Total Creatine Kinase 35 Troponin I LESS THAN 0.02 B-Type Natriuretic Peptide 185 Lipase 38 Urine Color YELLOW Urine Turbidity CLEAR Urine pH 6.0 Urine Specific [place] 1.033 Urine Protein 100 Urine Glucose (UA) NEG Urine Ketones TRACE Urine Occult Blood SMALL Urine Nitrite NEG Urine Bilirubin NEG Urine Urobilinogen 4.0 Urine Leukocyte Esterase NEG Urine RBC 1 Urine WBC 3 Urine Squamous Epithelial Cells 1 Urine Bacteria FEW Urine Hyaline Casts 2 Urine Mucus FEW Microscopic Urinalysis Comment CULT NOT INDICATED Date/Time Source Procedure Growth Status 08/15/17 15:05 Blood Peripheral Aerobic Blood Culture Pending Received 08/15/17 15:05 Blood Peripheral Anaerobic Blood Culture Pending Received 08/15/17 15:50 Throat Group A Streptococcus Screen Pending Received Result Diagram: 08/15/17 1500 08/15/17 1500 Assessment and Plan Assessment and Plan Pneumonia -Community-acquired -Urine antigen -Blood cultures -Sputum cultures -Broad-spectrum antibiotics -De-escalate per sensitivity Severe sepsis -Due to above -Broad-spectrum antibiotic -Aggressive IV fluid hydration -Monitor lactic acidosis trend Alcohol use disorder -Questionable -Thiamine folate and multivitamins IV -CIWA protocol -Monitor for withdrawal DVT GI prophylaxis -Jadiel's and SCDs -Subcu Lovenox -Regular diet Critical Care: The total critical care time was 35 minutes. Time to perform other separately billable procedures was not included in the critical care time. Joesph Marshall MD Aug 15, 2017 9:20 pm
[2017-08-15] MEDS ORDERED: VANCOMYCIN INJ 1,000 MG in SODIUM CHLOR 0.9% 250 ML INJ 250 ML IV ONE (21:30)
[2017-08-15] MEDS: SODIUM CHLOR 0.9% 1000 ML INJ 1,000 ML IV SCH (21:30)
[2017-08-15] MEDS ORDERED: Vancomycin Consult Pharmacy 1 EA OTHER SCH (21:30)
[2017-08-15] MEDS ORDERED: CHLORHEXIDINE GLUCONATE 2 % 1 PACK (2 CLOTHS)(extra cloths) TOPICAL PRN (21:45)
[2017-08-15] MEDS: PIPERACIL-TAZO 4.5 GM PREMIX 100 ML IV SCH (22:00)
[2017-08-15] MEDS ORDERED: VANCOMYCIN INJ 2,300 MG in SODIUM CHLORID 0.9% 500 ML INJ 500 ML IV ONE (22:30)
[2017-08-16] VITALS (17 sets, daily range): BP systolic 135–160; BP diastolic 84–91; PULSE 90–119; RESP 22–44; TEMP 98.2–102.6; O2SAT 92–95
[2017-08-16] MEDS: SODIUM CHLOR 0.9% 1000 ML INJ 1,000 ML IV SCH ×2 (03:58→13:27)
[2017-08-16] MEDS: CHLORHEXIDINE GLUCONATE 2 % 1 PACK (2 CLOTHS)(taper/protocol) TOPICAL SCH (04:00)
[2017-08-16] MEDS: PIPERACIL-TAZO 4.5 GM PREMIX 100 ML IV SCH ×4 (05:12→20:58)
[2017-08-16] MEDS: KETOROLAC TROMETHAMINE 60 MG/2 ML (IM) VIAL IM SCH ×3 (05:13→20:58)
[2017-08-16] MEDS: LORazepam 2 MG/ML VIAL IV PUSH PRN ×3 (05:28→20:57)
[2017-08-16] MEDS ORDERED: MULTIVITAMIN INJ 10 ML, THIAMINE INJ 100 MG, FOLIC ACID INJ 1 MG in SODIUM CHLORID 0.9%... IV ONE (06:00)
[2017-08-16 07:29] LABS: AUTOMATED NEUTROPHIL # 28.9 TH/MM3 (1.8-7.7); EOSINOPHIL # 0.1 TH/MM3 (0-0.4); EOSINOPHIL % 0.3 % (0.0-4.0); HEMATOCRIT 33.2 % (39.0-51.0); HEMOGLOBIN 10.9 GM/DL (13.0-17.0); LYMPH % 1.8 % (9.0-44.0); LYMPHOCYTE # 0.6 TH/MM3 (1.0-4.8); MEAN CELL VOLUME 88.8 FL (80.0-100.0); MEAN CORPUSCULAR HEMOGLOBIN 29.2 PG (27.0-34.0); MEAN CORPUSCULAR HGB CONC 32.9 % (32.0-36.0); MEAN PLATELET VOLUME 7.9 FL (7.0-11.0); MONOCYTE # 0.9 TH/MM3 (0-0.9); NEUT % 94.9 % (16.0-70.0); PLATELET COUNT 232 TH/MM3 (150-450); RED BLOOD COUNT 3.74 MIL/MM3 (4.50-5.90); RED CELL DISTRIBUTION WIDTH 16.4 % (11.6-17.2); WHITE BLOOD COUNT 30.5 TH/MM3 (4.0-11.0)
--- NOTE | 2017-08-16 07:48 | HHI.CCPN ---
Subjective Remarks/Hospital Course 57-year-old Citizen Of [place]-speaking only male presents for evaluation of sore throat and chest discomfort. Per patient he has had the sore throat since Monday and then developed the bilateral rib pain with cough and deep breaths for the past couple days. Patient has been taking [id number] medication with minimal relief. He has been found to have high fevers and chills. He denies any other medical issues. Denies smoking but states drinking alcohol on a daily occasion. No medical issues as far as he knows. 08/16 Patient is on 3L oxygen Tmax 102.3 Objective Vital Signs Date Time Temp Pulse Resp B/P (MAP) Pulse Ox O2 Delivery O2 Flow Rate FiO2 08/16/17 06:29 26 08/16/17 06:00 97 08/16/17 04:00 101.0 149/90 (109) 08/15/17 21:00 94 Nasal Cannula 3.00 Intake and Output 08/16/17 08/16/17 08/17/17 08:00 16:00 00:00 Intake Total 623 ml Balance 623 ml Result Diagram: 08/16/17 0714 08/15/17 1500 Other Results Laboratory Tests Test 08/15/17 15:00 08/15/17 15:30 08/15/17 17:40 08/15/17 20:45 White Blood Count 37.7 TH/MM3 Red Blood Count 4.19 MIL/MM3 Hemoglobin 12.2 GM/DL Hematocrit 37.0 % Mean Corpuscular Volume 88.4 FL Mean Corpuscular Hemoglobin 29.1 PG Mean Corpuscular Hemoglobin Concent 32.9 % Red Cell Distribution Width 16.5 % Platelet Count 268 TH/MM3 Mean Platelet Volume 8.1 FL Neutrophils (%) (Auto) 95.4 % Lymphocytes (%) (Auto) 1.8 % Monocytes (%) (Auto) 2.7 % Eosinophils (%) (Auto) 0.0 % Basophils (%) (Auto) 0.1 % Neutrophils # (Auto) 35.9 TH/MM3 Lymphocytes # (Auto) 0.7 TH/MM3 Monocytes # (Auto) 1.0 TH/MM3 Eosinophils # (Auto) 0.0 TH/MM3 Basophils # (Auto) 0.0 TH/MM3 CBC Comment AUTO DIFF Differential Total Cells Counted 100 Neutrophils % (Manual) 89 % Band Neutrophils % 10 % Monocytes % 1 % Neutrophils # (Manual) 37.3 TH/MM3 Differential Comment FINAL DIFF MANUAL Toxic Granulation 2+ Dohle Bodies PRESENT Platelet Estimate NORMAL Platelet Morphology Comment NORMAL Basophilic Stippling FAINT Spherocytes OCC Prothrombin Time 10.7 SEC Prothromb Time International Ratio 1.1 RATIO Activated Partial Thromboplast Time 26.8 SEC Blood Urea Nitrogen 12 MG/DL Creatinine 0.90 MG/DL Random Glucose 109 MG/DL Total Protein 8.3 GM/DL Albumin 2.7 GM/DL Calcium Level 9.0 MG/DL Alkaline Phosphatase 112 U/L Aspartate Amino Transf (AST/SGOT) 40 U/L Alanine Aminotransferase (ALT/SGPT) 56 U/L Total Bilirubin 0.5 MG/DL Sodium Level 133 MEQ/L Potassium Level 4.0 MEQ/L Chloride Level 98 MEQ/L Carbon Dioxide Level 23.4 MEQ/L Anion Gap 12 MEQ/L Estimat Glomerular Filtration Rate 87 ML/MIN Lactic Acid Level 2.7 mmol/L 2.1 mmol/L Total Creatine Kinase 35 U/L Troponin I LESS THAN 0.02 NG/ML B-Type Natriuretic Peptide 185 PG/ML Lipase 38 U/L Urine Color YELLOW Urine Turbidity CLEAR Urine pH 6.0 Urine Specific [place] 1.033 Urine Protein 100 mg/dL Urine Glucose (UA) NEG mg/dL Urine Ketones TRACE mg/dL Urine Occult Blood SMALL Urine Nitrite NEG Urine Bilirubin NEG Urine Urobilinogen 4.0 MG/DL Urine Leukocyte Esterase NEG Urine RBC 1 /hpf Urine WBC 3 /hpf Urine Squamous Epithelial Cells 1 /hpf Urine Bacteria FEW /hpf Urine Hyaline Casts 2 /lpf Urine Mucus FEW /lpf Microscopic Urinalysis Comment CULT NOT INDICATED Nasal Screen MRSA (PCR) MRSA NOT DETECTED Test 08/16/17 07:14 08/16/17 07:15 White Blood Count 30.5 TH/MM3 Red Blood Count 3.74 MIL/MM3 Hemoglobin 10.9 GM/DL Hematocrit 33.2 % Mean Corpuscular Volume 88.8 FL Mean Corpuscular Hemoglobin 29.2 PG Mean Corpuscular Hemoglobin Concent 32.9 % Red Cell Distribution Width 16.4 % Platelet Count 232 TH/MM3 Mean Platelet Volume 7.9 FL Neutrophils (%) (Auto) 94.9 % Lymphocytes (%) (Auto) 1.8 % Monocytes (%) (Auto) 3.0 % Eosinophils (%) (Auto) 0.3 % Basophils (%) (Auto) 0.0 % Neutrophils # (Auto) 28.9 TH/MM3 Lymphocytes # (Auto) 0.6 TH/MM3 Monocytes # (Auto) 0.9 TH/MM3 Eosinophils # (Auto) 0.1 TH/MM3 Basophils # (Auto) 0.0 TH/MM3 CBC Comment AUTO DIFF Imaging Last Impressions Chest X-Ray 08/15/17 0000 Signed Impressions: Service Date/Time: Tuesday, August 15, 2017 15:57 - CONCLUSION: 1. Diffuse interstitial prominence with patchy bilateral lower lobe airspace disease. Differential considerations bilateral lower lobe pneumonia versus aspiration ++/- interstitial pneumonia or atypical infection given above history. Fam Atkins MD Objective Remarks GENERAL: Well-nourished, well-developed patient. Lethargic SKIN: Warm and dry. HEAD: Normocephalic. EYES: No scleral icterus. No injection or drainage. NECK: Supple, trachea midline. No JVD or lymphadenopathy. CARDIOVASCULAR: Regular rate and rhythm without murmurs, gallops, or rubs. RESPIRATORY: Breath sounds equal bilaterally. No accessory muscle use. Rales and rhonchi bilaterally GASTROINTESTINAL: Abdomen soft, non-tender, nondistended. MUSCULOSKELETAL: No cyanosis, or edema. BACK: Nontender without obvious deformity. NEURO EXAM: No focal deficits A/P Assessment and Plan 1)Resp Insuff 2)Community-acquired pneumonia 3)Mild Lactic acidemia 4)Leukocytosis 5)Alcohol use disorder 6)Anemia Neuro: Monitor neuro status. Watch for signs of DT's. On CIWA protocol. Continue with Thiamine/MVI/Folic acid Pulm: Continue with oxygen keep sats >92% Bronchodilators, aspiration precautions Check CT chest and ABG CV: Monitor HR and BP keep MAP>65mmHg Lactic acid 2.1 For 2D echo today : Monitor renal function, I/O's, electrolytes replacement as needed Continue IVF GI: Keep NPO till mental status improves ID: Continue with abx ( Vanco, Zosyn, Azithromycin) ID eval Follow up on blood cultures, strep pneumonia, legionella urinary Ag pending Check nasal washing r/o influenza Heme: Monitor CBC Endo: SSI for glycemic control DVT GI prophylaxis -Jadiel's and SCDs -Subcu Lovenox -Pepcid level 2 Rosario Landaverde MD Aug 16, 2017 07:48
[2017-08-16 07:55] LABS: BICARBONATE 21.4 MEQ/L (21.0-32.0); CALCIUM 8.3 MG/DL (8.5-10.1); CREATININE 0.74 MG/DL (0.60-1.30)
[2017-08-16] MEDS ORDERED: Vancomycin Consult Pharmacy 1 EA OTHER SCH (08:00)
[2017-08-16 08:16] LABS: BANDS 26 % (0-6); LYMPHOCYTES 1 % (9-44); MONOCYTES 1 % (0-8); NEUTROPHIL # MANUAL DIFF 29.9 TH/MM3 (1.8-7.7); POLYS (SEG NEUTROPHILS) 72 % (16-70)
[2017-08-16 08:18] LABS: TOXIC GRANULATION 1+ (NORMAL); TOXIC VACUOLATION PRESENT (NONE SEEN)
[2017-08-16] MEDS ORDERED: POTASSIUM PHOSPHATE INJ 30 MMOL in SODIUM CHLOR 0.9% 250 ML INJ 250 ML IV PRN (08:30)
[2017-08-16] MEDS ORDERED: POTASSIUM CHLOR 20 MEQ PREMIX 100 ML IV PRN (08:30)
[2017-08-16] MEDS ORDERED: POTASSIUM PHOSPHATE MONOBASIC 500 MG TAB PO/TUBE PRN (08:30)
[2017-08-16] MEDS ORDERED: MAGNESIUM SULFATE INJ 2 GM in SODIUM CHLORIDE 0.9% INJ 96 ML IV PRN (08:30)
[2017-08-16] MEDS ORDERED: MAGNESIUM OXIDE 400 MG TAB PO PRN (08:30)
[2017-08-16] MEDS ORDERED: POTASSIUM CHLOR 40 MEQ PREMIX 100 ML IV PRN ×2 (08:30)
[2017-08-16] MEDS ORDERED: MAGNESIUM SULFATE INJ 4 GM in SODIUM CHLORIDE 0.9% INJ 92 ML IV PRN (08:30)
[2017-08-16] MEDS ORDERED: POTASSIUM PHOSPHATE MONOBASIC 500 MG TAB PO PRN (08:30)
[2017-08-16] MEDS ORDERED: THIAMINE HCL 100 MG TAB PO SCH (09:00)
--- NOTE | 2017-08-16 09:16 | EKG ---
Date Performed: 08/15/2017 Time Performed: 14:51:08 PTAGE: 57 years EKG: SINUS TACHYCARDIA POSSIBLE LEFT ATRIAL ENLARGEMENT POSSIBLE RIGHT VENTRICULAR CONDUCTION DE LAY ABNORMAL RHYTHM ECG INTERPRETATION BASED ON A DEFAULT AGE OF 40 YEARS NO PREVIOUS TRACING DOCTOR: Jeremías Barrios Interpretating Date/Time 08/16/2017 09:16:16
[2017-08-16] MEDS: POTASSIUM CHLORIDE 25 MEQ EFFERVESCENT TAB PO PRN (09:20)
[2017-08-16] MEDS: ENOXAPARIN SODIUM 40 MG/0.4 ML SYRINGE SQ SCH (09:21)
[2017-08-16] MEDS: SODIUM CHLORIDE 0.9% FLUSH 10 ML FLUSH IV FLUSH SCH ×2 (09:27→20:58)
[2017-08-16] MEDS ORDERED: PNEUMOCOCCAL POLYVALENT INJ 25 MCG/0.5 ML SYR IM ONE (10:00)
[2017-08-16] MEDS ORDERED: INFLUENZA VIRUS VACCINE (QUADRIVALENT) 0.5 ML SYR IM ONE (10:00)
[2017-08-16] MEDS: VANCOMYCIN INJ 2,000 MG in SODIUM CHLORID 0.9% 500 ML INJ 500 ML IV SCH (12:30)
--- NOTE | 2017-08-16 13:22 | PD.ID.CON ---
History of Present Illness Service ID Consult Requested By Dr Lennon Reason for Consult pneumonia Primary Care Physician No Primary Care Physician Diagnoses: History of Present Illness 57 yo male presented yday with worsening dry cough, SOB and L sided pleuritic chest pain since Monday which keep getting worse + fever @ home (did not nmeaasure) On presentation he has T max 101.3, lactic acidosis of 2.1 and WBC of 37 K Leg/pneumococcal AG are negative CXR showed b/l diffuse infiltates Unable to provide sputum for clx Review of Systems Constitutional: COMPLAINS OF: Fever, Chills Respiratory: COMPLAINS OF: Cough Cardiovascular: COMPLAINS OF: Chest pain Except as stated in HPI: all other systems reviewed are Neg Past Family Social History Allergies: Coded Allergies: No Known Allergies (Unverified Allergy, Unknown, 08/15/17) Past Medical History none reported Past Surgical History none Active Ordered Medications Medications where reviewed in EMR Antibiotics Include: azithro surendra west Family History reviewed/non contributory Social History denies smoking 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[place], 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 [place] 18 yrs ago Physical Exam Vital Signs Vital Signs Date Time Temp Pulse Resp B/P (MAP) Pulse Ox O2 Delivery O2 Flow Rate FiO2 08/16/17 11:00 109 08/16/17 10:00 104 08/16/17 09:00 97 08/16/17 08:00 101 08/16/17 08:00 98.2 101 22 160/91 (114) 95 08/16/17 08:00 93 Nasal Cannula 4.00 08/16/17 07:00 90 08/16/17 07:00 88 Nasal Cannula 2.00 08/16/17 06:29 26 08/16/17 06:00 97 08/16/17 04:00 109 08/16/17 04:00 101.0 109 32 149/90 (109) 08/16/17 02:00 110 08/16/17 00:00 101.3 115 23 135/84 (101) 08/16/17 00:00 115 08/15/17 22:00 110 08/15/17 21:00 94 Nasal Cannula 3.00 08/15/17 21:00 112 08/15/17 20:57 101.1 114 20 127/80 (96) 08/15/17 18:37 Nasal Cannula 3.00 08/15/17 18:15 99.0 109 19 112/64 (80) 93 08/15/17 18:09 104 18 109/63 (78) 95 Nasal Cannula 2.00 08/15/17 17:47 104 18 109/67 (81) 95 Nasal Cannula 08/15/17 16:34 100.7 08/15/17 15:43 102.1 110 18 128/90 (103) 95 Room Air 08/15/17 15:43 102.1 110 18 128/90 (103) 95 Room Air 08/15/17 15:24 18 Room Air 08/15/17 14:26 102.3 125 20 139/76 (97) 95 Physical Exam CONSTITUTIONAL/GENERAL: This is an adequately nourished patient, in no apparent distress. TUBES/LINES/DRAINS: SKIN: No jaundice, rashes, or lesions. Skin temperature appropriate. Not diaphoretic. HEAD: Atraumatic. Normocephalic. EYES: Pupils equal and round and reactive. Extraocular motions intact. No scleral icterus. No injection or drainage. Fundi not examined. ENT: Hearing grossly normal. Nose without bleeding or purulent drainage. Throat without visible erythema, exudates, masses, or lesions. poor dentition NECK: Trachea midline. Supple, nontender. No palpable thyroid enlargement or nodularity. CARDIOVASCULAR: Regular rate and rhythm without murmurs, gallops, or rubs. No JVD. Peripheral pulses symmetric. RESPIRATORY/CHEST: Symmetric, unlabored respirations. Clear to auscultation. Breath sounds equal bilaterally. No wheezes, rales, or rhonchi. GASTROINTESTINAL: Abdomen soft, non-tender, nondistended. No hepato-splenomegaly , or palpable masses. No guarding. Bowel sounds present. GENITOURINARY: Without palpable bladder distension. MUSCULOSKELETAL: Extremities without clubbing, cyanosis, or edema. No joint tenderness or effusion noted. No calf tenderness. No mottling or clubbing. LYMPHATICS: No palpable cervical or supraclavicular adenopathy. NEUROLOGICAL: Awake and alert. Motor and sensory grossly within normal limits. Follows commands. Clear speech. Moves all extremities. PSYCHIATRIC: No obvious anxiety/depression. no apparent hallucinations or other psychotic thought process. Laboratory Laboratory Tests Test 08/15/17 15:00 08/15/17 15:30 08/15/17 17:40 08/15/17 20:45 White Blood Count 37.7 Red Blood Count 4.19 Hemoglobin 12.2 Hematocrit 37.0 Mean Corpuscular Volume 88.4 Mean Corpuscular Hemoglobin 29.1 Mean Corpuscular Hemoglobin Concent 32.9 Red Cell Distribution Width 16.5 Platelet Count 268 Mean Platelet Volume 8.1 Neutrophils (%) (Auto) 95.4 Lymphocytes (%) (Auto) 1.8 Monocytes (%) (Auto) 2.7 Eosinophils (%) (Auto) 0.0 Basophils (%) (Auto) 0.1 Neutrophils # (Auto) 35.9 Lymphocytes # (Auto) 0.7 Monocytes # (Auto) 1.0 Eosinophils # (Auto) 0.0 Basophils # (Auto) 0.0 CBC Comment AUTO DIFF Differential Total Cells Counted 100 Neutrophils % (Manual) 89 Band Neutrophils % 10 Monocytes % 1 Neutrophils # (Manual) 37.3 Differential Comment FINAL DIFF MANUAL Toxic Granulation 2+ Dohle Bodies PRESENT Platelet Estimate NORMAL Platelet Morphology Comment NORMAL Basophilic Stippling FAINT Spherocytes OCC Prothrombin Time 10.7 Prothromb Time International Ratio 1.1 Activated Partial Thromboplast Time 26.8 Blood Urea Nitrogen 12 Creatinine 0.90 Random Glucose 109 Total Protein 8.3 Albumin 2.7 Calcium Level 9.0 Alkaline Phosphatase 112 Aspartate Amino Transf (AST/SGOT) 40 Alanine Aminotransferase (ALT/SGPT) 56 Total Bilirubin 0.5 Sodium Level 133 Potassium Level 4.0 Chloride Level 98 Carbon Dioxide Level 23.4 Anion Gap 12 Estimat Glomerular Filtration Rate 87 Lactic Acid Level 2.7 2.1 Total Creatine Kinase 35 Troponin I LESS THAN 0.02 B-Type Natriuretic Peptide 185 Lipase 38 Urine Color YELLOW Urine Turbidity CLEAR Urine pH 6.0 Urine Specific Negley 1.033 Urine Protein 100 Urine Glucose (UA) NEG Urine Ketones TRACE Urine Occult Blood SMALL Urine Nitrite NEG Urine Bilirubin NEG Urine Urobilinogen 4.0 Urine Leukocyte Esterase NEG Urine RBC 1 Urine WBC 3 Urine Squamous Epithelial Cells 1 Urine Bacteria FEW Urine Hyaline Casts 2 Urine Mucus FEW Microscopic Urinalysis Comment CULT NOT INDICATED Nasal Screen MRSA (PCR) MRSA NOT DETECTED Test 08/16/17 07:14 08/16/17 07:15 08/16/17 08:37 White Blood Count 30.5 Red Blood Count 3.74 Hemoglobin 10.9 Hematocrit 33.2 Mean Corpuscular Volume 88.8 Mean Corpuscular Hemoglobin 29.2 Mean Corpuscular Hemoglobin Concent 32.9 Red Cell Distribution Width 16.4 Platelet Count 232 Mean Platelet Volume 7.9 Neutrophils (%) (Auto) 94.9 Lymphocytes (%) (Auto) 1.8 Monocytes (%) (Auto) 3.0 Eosinophils (%) (Auto) 0.3 Basophils (%) (Auto) 0.0 Neutrophils # (Auto) 28.9 Lymphocytes # (Auto) 0.6 Monocytes # (Auto) 0.9 Eosinophils # (Auto) 0.1 Basophils # (Auto) 0.0 CBC Comment AUTO DIFF Differential Total Cells Counted 100 Neutrophils % (Manual) 72 Band Neutrophils % 26 Lymphocytes % 1 Monocytes % 1 Neutrophils # (Manual) 29.9 Differential Comment FINAL DIFF MANUAL Toxic Granulation 1+ Toxic Vacuolation PRESENT Platelet Estimate NORMAL Platelet Morphology Comment NORMAL Blood Urea Nitrogen 14 Creatinine 0.74 Random Glucose 112 Calcium Level 8.3 Sodium Level 137 Potassium Level 3.5 Chloride Level 107 Carbon Dioxide Level 21.4 Anion Gap 9 Estimat Glomerular Filtration Rate 109 Phosphorus Level 2.0 Lactic Acid Level 1.9 Blood Gas Puncture Site RT RADIAL Blood Gas Patient Temperature 98.6 Blood Gas HCO3 21 Blood Gas Base Excess -2.9 Blood Gas Oxygen Saturation 93 Arterial Blood pH 7.40 Arterial Blood Partial Pressure CO2 35 Arterial Blood Partial Pressure O2 80 Arterial Blood Oxygen Content 14.8 Arterial Blood Carboxyhemoglobin 0.9 Arterial Blood Methemoglobin 1.5 Blood Gas Hemoglobin 11.3 Oxygen Delivery Device NASAL CANNULA Blood Gas Liter Flow 4 Date/Time Source Procedure Growth Status 08/15/17 15:05 Blood Peripheral Aerobic Blood Culture - Preliminary NO GROWTH IN 1 DAY Resulted 08/15/17 15:05 Blood Peripheral Anaerobic Blood Culture - Preliminary NO GROWTH IN 1 DAY Resulted 08/15/17 15:50 Throat Group A Streptococcus Screen Pending Received 08/15/17 15:30 Urine Random Urine Legionella Antigen - Final PRESUMPTIVE NEGATIVE FOR LEGIONELLA P... Complete 08/15/17 15:30 Urine Random Urine Streptococcus pneumoniae Antigen (M - Final PRESUMPTIVE NEGATIVE FOR STREPTOCOCCU... Complete Result Diagram: 08/16/17 0714 08/16/17 0714 Imaging Last Impressions Chest X-Ray 08/15/17 0000 Signed Impressions: Service Date/Time: Tuesday, August 15, 2017 15:57 - CONCLUSION: 1. Diffuse interstitial prominence with patchy bilateral lower lobe airspace disease. Differential considerations bilateral lower lobe pneumonia versus aspiration ++/- interstitial pneumonia or atypical infection given above history. Fam Atkins MD Assessment and Plan Assessment and Plan PNA ( b/l infiltrates, feverr, pleuritic chest pain and marked leukocytosis) chk flu cont current abx will follow CT chk 2 D ech fu WBC, temps and blood clx Discussed Condition With Dr Lennon family life educator @ b/s Celina Eastman MD Aug 16, 2017 13:22
--- NOTE | 2017-08-16 14:26 | ECHRPT ---
Indication: Heart Failure CONCLUSIONS The left ventricular systolic function is low normal with an estimated ejection fraction in the rang e of 50- 55%. Normal left ventricular size. Wall thickness is normal. The left atrial size is upper limits of normal. Mild mitral valve regurgitation. There is moderate tricuspid regurgitation. The estimated pulmonary arterial pressure is 49.7 mmHg. BP: 149 / 90 HR: 109 Rhythm: Sinus MEASUREMENTS (Male / Female) Normal Values Technical Quality:Fair 2D ECHO LV Diastolic Diameter PLAX 5.7 cm 4.2 - 5.9 / 3.9 - 5.3 cm LV Systolic Diameter PLAX 4.2 cm IVS Diastolic Thickness 0.9 cm 0.6 - 1.0 / 0.6 - 0.9 cm LVPW Diastolic Thickness 0.9 cm 0.6 - 1.0 / 0.6 - 0.9 cm LV Relative Wall Thickness 0.3 RV Internal Dim ED PLAX 3.0 cm LVOT Diameter 2.3 cm LA Systolic Diameter LX 4.0 cm 3.0 - 4.0 / 2.7 - 3.8 cm M-MODE Aortic Root Diameter MM 3.3 cm LA Systolic Diameter MM 4.4 cm LA Ao Ratio MM 1.3 AV Cusp Separation MM 2.3 cm DOPPLER AV Peak Velocity 181.0 cm/s AV Peak Gradient 13.1 mmHg LVOT Peak Velocity 121.0 cm/s LVOT Peak Gradient 5.9 mmHg AV Area Cont Eq pk 2.8 cm MV Area PHT 3.0 cm Mitral E Point Velocity 62.1 cm/s Mitral A Point Velocity 94.5 cm/s Mitral E to A Ratio 0.7 LV E' Lateral Velocity 13.7 cm/s Mitral E to LV E' Lateral Ratio 4.5 LV E' Septal Velocity 10.1 cm/s Mitral E to LV E' Septal Ratio 6.1 TR Peak Velocity 315.0 cm/s TR Peak Gradient 39.7 mmHg Right Atrial Pressure 10.0 mmHg Pulmonary Artery Systolic Pressu 49.7 mmHg Right Ventricular Systolic Press 49.7 mmHg FINDINGS LEFT VENTRICLE The left ventricular systolic function is low normal with an estimated ejection fraction in the rang e of 50- 55%. Normal left ventricular size. Wall thickness is normal. RIGHT VENTRICLE Normal right ventricular size and systolic function. LEFT ATRIUM The left atrial size is upper limits of normal. RIGHT ATRIUM The right atrial size is normal. ATRIAL SEPTUM Normal atrial septal thickness without atrial level shunting by limited color doppler interrogation. AORTA The aortic root and proximal ascending aorta are normal in size on limited imaging. MITRAL VALVE Structurally normal mitral valve. Mild mitral valve regurgitation. AORTIC VALVE Trileaflet aortic valve. No aortic valve stenosis or regurgitation. TRICUSPID VALVE Structurally normal tricuspid valve. There is moderate tricuspid regurgitation. The estimated pulmonary arterial pressure is 49.7 mmHg. PULMONARY VALVE No pulmonary valve regurgitation or stenosis. VESSELS The inferior vena cava is normal in size. PERICARDIUM No pericardial effusion. Sohail Eastman MD, FACC, [facility] [place] (Electronically Signed) Final Date:16 August 2017 14:24
--- NOTE | 2017-08-16 15:46 | RADRPT ---
EXAM DATE/TIME: 08/16/2017 15:25 [facility] COMPARISON: No previous studies available for comparison. INDICATIONS : Pneumonia,fever RADIATION DOSE: 11.69 CTDIvol (mGy) MEDICAL HISTORY : None SURGICAL HISTORY : None. ENCOUNTER: Initial ACUITY: 1 day PAIN SCALE: 6/10 LOCATION: chest TECHNIQUE: Volumetric scanning of the chest was performed. Using automated exposure control and adjustment of t he mA and/or kV according to patient size, radiation dose was kept as low as reasonably achievable to obtain optimal diagnostic quality images. DICOM format image data is available electronically for r eview and comparison. Follow-up recommendations for detected pulmonary nodules are based at a minimum on nodule size and pa tient risk factors according to Fleischner Society Guidelines. FINDINGS: LUNGS: There significant consolidations in the right lung and a small air consolidation at the left lung bas e. PLEURAE: Moderate size right pleural effusion. Tiny left pleural effusion. MEDIASTINUM: The heart and great vessels demonstrate no acute abnormality. There is no mediastinal or hilar lymph adenopathy. AXILLAE: Within normal limits. No lymphadenopathy. MUSCULOSKELETAL: Within normal limits for patient age. MISCELLANEOUS: The visualized upper abdominal organs demonstrate no acute abnormality. CONCLUSION: Very impressive consolidations right lower lobe, right middle lobe, and right upper lobe. Moderate si ze right pleural effusion. Almost the entire right lower lobe is consolidated. Minimal consolidation left lung base.. Jeremías Shaikh MD on August 16, 2017 at 15:42 Board Certified Radiologist. This report was verified electronically.
[2017-08-16] MEDS ORDERED: cefTRIAXone INJ 1,000 MG in SODIUM CHLORIDE 0.9% INJ 100 ML IV SCH (16:00)
[2017-08-16] MEDS ORDERED: AZITHROMYCIN INJ 500 MG in SODIUM CHLOR 0.9% 250 ML INJ 250 ML IV SCH (17:00)
[2017-08-16] MEDS: AZITHROMYCIN INJ 500 MG in SODIUM CHLOR 0.9% 250 ML INJ 250 ML IV SCH (20:58)
[2017-08-16] MEDS ORDERED: LEVOFLOXACIN 750 MG PREMIX INJ 150 ML IV SCH (21:00)
--- NOTE | 2017-08-16 21:09 | RADRPT ---
EXAM DATE/TIME: 08/16/2017 20:34 [facility] COMPARISON: CT THORAX W/O CONTRAST, August 16, 2017, 15:25. INDICATIONS : Right pleural effusion. MEDICAL HISTORY : Dypnea. Fever. Fatigue. Severe sepsis. Acute bilateral pneumonia. SURGICAL HISTORY : None. ENCOUNTER: Initial ACUITY: 1 day PAIN SCORE: 0/10 LOCATION: Right upper chest MEASUREMENTS: SKIN TO PARIETAL PLEURA: Inadequate fluid SKIN TO MAX SAFE DEPTH: Inadequate fluid ESTIMATED FLUID VOLUME: 99 cc FLUID COMPOSITION: simple FINDINGS: No marking was performed. <By ultrasound, the right pleural effusion only measures out to approximat fabio 100 cc.> . CONCLUSION: Right pleural effusion is too small for safe drainage. Peng Krishnan MD on August 16, 2017 at 21:05 Board Certified Radiologist. This report was verified electronically.
[2017-08-16] MEDS ORDERED: ACETAMINOPHEN 325 MG TAB PO PRN (21:30)
[2017-08-16] MEDS: SODIUM PHOSPHATE INJ 30 MMOL in SODIUM CHLOR 0.9% 250 ML INJ 240 ML IV PRN (22:37)
[2017-08-17] VITALS (19 sets, daily range): BP systolic 100–153; BP diastolic 70–89; PULSE 73–110; RESP 24–28; TEMP 98.1–99.2; O2SAT 93–100
[2017-08-17] MEDS: LORazepam 2 MG/ML VIAL IV PUSH PRN ×2 (00:34→17:58)
[2017-08-17] MEDS: KETOROLAC TROMETHAMINE 60 MG/2 ML (IM) VIAL IM SCH (00:34)
[2017-08-17] MEDS: VANCOMYCIN INJ 2,000 MG in SODIUM CHLORID 0.9% 500 ML INJ 500 ML IV SCH ×2 (00:35→12:25)
[2017-08-17] MEDS: CHLORHEXIDINE GLUCONATE 2 % 1 PACK (2 CLOTHS)(taper/protocol) TOPICAL SCH (04:00)
[2017-08-17] MEDS: PIPERACIL-TAZO 4.5 GM PREMIX 100 ML IV SCH ×4 (04:47→20:47)
[2017-08-17] MEDS: SODIUM PHOSPHATE INJ 30 MMOL in SODIUM CHLOR 0.9% 250 ML INJ 240 ML IV PRN (05:36)
[2017-08-17 08:25] LABS: BASOPHIL # 0.1 TH/MM3 (0-0.2); BASOPHIL % 0.2 % (0.0-2.0); EOSINOPHIL # 0.1 TH/MM3 (0-0.4); EOSINOPHIL % 0.2 % (0.0-4.0); HEMATOCRIT 32.8 % (39.0-51.0); HEMOGLOBIN 10.8 GM/DL (13.0-17.0); LYMPH % 4.2 % (9.0-44.0); LYMPHOCYTE # 1.1 TH/MM3 (1.0-4.8); MEAN CELL VOLUME 88.4 FL (80.0-100.0); MEAN CORPUSCULAR HEMOGLOBIN 29.1 PG (27.0-34.0); MEAN PLATELET VOLUME 8.2 FL (7.0-11.0); MONO % 4.5 % (0.0-8.0); MONOCYTE # 1.1 TH/MM3 (0-0.9); NEUT % 90.9 % (16.0-70.0); PLATELET COUNT 239 TH/MM3 (150-450); RED BLOOD COUNT 3.71 MIL/MM3 (4.50-5.90); RED CELL DISTRIBUTION WIDTH 16.9 % (11.6-17.2); WHITE BLOOD COUNT 25.3 TH/MM3 (4.0-11.0)
[2017-08-17] MEDS: ENOXAPARIN SODIUM 40 MG/0.4 ML SYRINGE SQ SCH (08:49)
[2017-08-17] MEDS: SODIUM CHLORIDE 0.9% FLUSH 10 ML FLUSH IV FLUSH SCH ×2 (08:49→20:44)
[2017-08-17 08:55] LABS: ALBUMIN 1.7 GM/DL (3.4-5.0); AST (GOT) 35 U/L (15-37); BICARBONATE 22.8 MEQ/L (21.0-32.0); BLOOD UREA NITROGEN 15 MG/DL (7-18); CHLORIDE 108 MEQ/L (98-107); CREATININE 0.66 MG/DL (0.60-1.30); GLOMERULAR FILTRATION RATE 125 ML/MIN (>89); GLUCOSE,RANDOM 81 MG/DL (74-106); MAGNESIUM 2.4 MG/DL (1.5-2.5); SODIUM (NA) 140 MEQ/L (136-145)
[2017-08-17 09:00] LABS: ALKALINE PHOSPHATASE 140 U/L (45-117); ALT (GPT) 35 U/L (12-78); PHOSPHORUS 3.3 MG/DL (2.5-4.9); TOTAL BILIRUBIN ADULT 0.5 MG/DL (0.2-1.0); TOTAL PROTEIN 6.1 GM/DL (6.4-8.2)
[2017-08-17 09:07] LABS: BANDS 20 % (0-6); LYMPHOCYTES 3 % (9-44); MONOCYTES 6 % (0-8); POLYS (SEG NEUTROPHILS) 71 % (16-70); TOXIC GRANULATION 1+ (NORMAL)
[2017-08-17] MEDS ORDERED: RESP: ALBUTEROL 2.5 MG/IPRATROPIUM 0.5 MG NEB (PRN) NEB (10:15)
--- NOTE | 2017-08-17 10:17 | HHI.CCPN ---
Subjective Remarks/Hospital Course 57-year-old Senegalese-speaking only male presents for evaluation of sore throat and chest discomfort. Per patient he has had the sore throat since Monday and then developed the bilateral rib pain with cough and deep breaths for the past couple days. Patient has been taking [id number] medication with minimal relief. He has been found to have high fevers and chills. He denies any other medical issues. Denies smoking but states drinking alcohol on a daily occasion. No medical issues as far as he knows. 08/16 Patient is on 3L oxygen Tmax 102.3 08/17: T-max 102.6. Patient noted to have increasing oxygen requirements over the last [address] revealed moderate size right pleural effusion. Radiology consulted for quantification of fluid and possible thoracentesis/ pleural fluid analysis. Leukocytosis resolving. Objective Vital Signs Date Time Temp Pulse Resp B/P (MAP) Pulse Ox O2 Delivery O2 Flow Rate FiO2 08/17/17 08:00 98.1 77 28 126/86 (99) 100 08/17/17 07:00 Nasal Cannula 4.00 Intake and Output 08/17/17 08/17/17 08/18/17 08:00 16:00 00:00 Intake Total 620 ml Output Total 450 ml Balance 170 ml Result Diagram: 08/17/17 0622 08/17/17 0622 Other Results Microbiology Date/Time Source Procedure Growth Status 08/15/17 15:50 Throat Group A Streptococcus Screen - Final NO GP A BETA STREP ISOLATED. Complete 08/15/17 15:50 Throat Group A Streptococcus Screen ([facility]) - Final Complete 08/15/17 15:30 Urine Random Urine Legionella Antigen - Final PRESUMPTIVE NEGATIVE FOR LEGIONELLA P... Complete 08/15/17 15:30 Urine Random Urine Streptococcus pneumoniae Antigen (M - Final PRESUMPTIVE NEGATIVE FOR STREPTOCOCCU... Complete Imaging Last Impressions Chest X-Ray 08/15/17 0000 Signed Impressions: Service Date/Time: Tuesday, August 15, 2017 15:57 - CONCLUSION: 1. Diffuse interstitial prominence with patchy bilateral lower lobe airspace disease. Differential considerations bilateral lower lobe pneumonia versus aspiration ++/- interstitial pneumonia or atypical infection given above history. Fam Atkins MD Objective Remarks GENERAL: Well-nourished, well-developed patient. Lethargic SKIN: Warm and dry. HEAD: Normocephalic. EYES: No scleral icterus. No injection or drainage. NECK: Supple, trachea midline. No JVD or lymphadenopathy. CARDIOVASCULAR: Regular rate and rhythm without murmurs, gallops, or rubs. RESPIRATORY: Breath sounds equal bilaterally. No accessory muscle use. Rales and rhonchi bilaterally GASTROINTESTINAL: Abdomen soft, non-tender, nondistended. MUSCULOSKELETAL: No cyanosis, or edema. BACK: Nontender without obvious deformity. NEURO EXAM: No focal deficits A/P Assessment and Plan 1)Resp Insuff 2)Community-acquired pneumonia 3)Mild Lactic acidemia 4)Leukocytosis 5)Alcohol use disorder 6)Anemia 7) hypoalbuminemia Neuro: Monitor neuro status. Watch for signs of DT's. On CIWA protocol. Continue with Thiamine/MVI/Folic acid Pulm: Continue with oxygen keep sats >92%, nasal cannula increased to 4 L/min Bronchodilators, aspiration precautions 08/16 CT chest-moderate right pleural effusions however ultrasound quantification revealed only 90 cc no thoracentesis indicated Repeat ABG pending Incentive spirometry while awake CV: Monitor HR and BP keep MAP>65mmHg 08/17 lactic acid cleared one-point 08/16 2D echo-EF 50-55%, mild MVR, moderate TR, PAP 49 : Monitor renal function, I/O's, electrolytes replacement as needed Continue IVF GI: Heart healthy diet Bowel regimen Albumin 1.7-malnourished secondary to EtOH use ID: Continue with abx ( Vanco, Zosyn, Azithromycin) ID following Follow up on blood cultures, 08/16strep pneumonia, legionella urinary Ag- neg Check nasal washing r/o influenza Heme: Monitor CBC Endo: SSI for glycemic control DVT GI prophylaxis -Jadiel's and SCDs -Subcu Lovenox -Pepcid level 2 follow-up Physician Mavis Boyd MD Aug 17, 2017 10:17
[2017-08-17] MEDS: RESP: ALBUTEROL 2.5 MG/IPRATROPIUM 0.5 MG NEB (SCH) NEB ×3 (10:37→22:59)
[2017-08-17] MEDS ORDERED: PHARMACY ORDERED LAB ONE (11:45)
[2017-08-17] MEDS: AZITHROMYCIN INJ 500 MG in SODIUM CHLOR 0.9% 250 ML INJ 250 ML IV SCH (17:58)
[2017-08-17] MEDS: SODIUM CHLOR 0.9% 1000 ML INJ 1,000 ML IV SCH (20:43)
[2017-08-18] VITALS (20 sets, daily range): BP systolic 130–165; BP diastolic 73–91; PULSE 75–104; RESP 20–22; TEMP 98.2–99.9; O2SAT 96–100
[2017-08-18] MEDS: VANCOMYCIN INJ 2,000 MG in SODIUM CHLORID 0.9% 500 ML INJ 500 ML IV SCH ×2 (01:42→14:09)
[2017-08-18] MEDS: CHLORHEXIDINE GLUCONATE 2 % 1 PACK (2 CLOTHS)(taper/protocol) TOPICAL SCH (04:00)
[2017-08-18] MEDS: RESP: ALBUTEROL 2.5 MG/IPRATROPIUM 0.5 MG NEB (SCH) NEB ×5 (04:28→21:08)
[2017-08-18] MEDS: PIPERACIL-TAZO 4.5 GM PREMIX 100 ML IV SCH ×4 (04:34→22:02)
[2017-08-18 06:00] LABS: AUTOMATED NEUTROPHIL # 17.1 TH/MM3 (1.8-7.7); BASOPHIL % 0.2 % (0.0-2.0); EOSINOPHIL % 0.2 % (0.0-4.0); HEMATOCRIT 33.2 % (39.0-51.0); LYMPH % 6.4 % (9.0-44.0); LYMPHOCYTE # 1.3 TH/MM3 (1.0-4.8); MEAN CELL VOLUME 87.9 FL (80.0-100.0); MEAN PLATELET VOLUME 7.8 FL (7.0-11.0); MONO % 7.5 % (0.0-8.0); MONOCYTE # 1.5 TH/MM3 (0-0.9); NEUT % 85.7 % (16.0-70.0); PLATELET COUNT 293 TH/MM3 (150-450); RED BLOOD COUNT 3.78 MIL/MM3 (4.50-5.90); RED CELL DISTRIBUTION WIDTH 17.2 % (11.6-17.2); WHITE BLOOD COUNT 19.9 TH/MM3 (4.0-11.0)
[2017-08-18 06:28] LABS: BICARBONATE 24.6 MEQ/L (21.0-32.0); CALCIUM 8.1 MG/DL (8.5-10.1); CREATININE 0.66 MG/DL (0.60-1.30)
[2017-08-18 08:22] LABS: BANDS 11 % (0-6); LYMPHOCYTES 9 % (9-44); MONOCYTES 7 % (0-8); NEUTROPHIL # MANUAL DIFF 16.7 TH/MM3 (1.8-7.7); POLYS (SEG NEUTROPHILS) 73 % (16-70)
[2017-08-18 08:24] LABS: TOXIC GRANULATION 1+ (NORMAL)
--- NOTE | 2017-08-18 10:01 | HHI.CCPN ---
Subjective Remarks/Hospital Course 57-year-old Togolese-speaking only male presents for evaluation of sore throat and chest discomfort. Per patient he has had the sore throat since Monday and then developed the bilateral rib pain with cough and deep breaths for the past couple days. Patient has been taking fmoi-[id number] medication with minimal relief. He has been found to have high fevers and chills. He denies any other medical issues. Denies smoking but states drinking alcohol on a daily occasion. No medical issues as far as he knows. 08/16 Patient is on 3L oxygen Tmax 102.3 08/17: T-max 102.6. Patient noted to have increasing oxygen requirements over the last [address] revealed moderate size right pleural effusion. Radiology consulted for quantification of fluid and possible thoracentesis/ pleural fluid analysis. Leukocytosis resolving. 08/18 Patient is on 2L oxygen, afebrile. WBC is trending down. Objective Vital Signs Date Time Temp Pulse Resp B/P (MAP) Pulse Ox O2 Delivery O2 Flow Rate FiO2 08/18/17 08:17 96 Nasal Cannula 2.00 08/18/17 06:00 90 08/18/17 04:00 98.8 134/73 (93) 08/17/17 12:00 27 Intake and Output 08/18/17 08/18/17 08/19/17 08:00 16:00 00:00 Output Total 750 ml Balance -750 ml Result Diagram: 08/18/17 0446 08/18/17 0446 Other Results Laboratory Tests Test 08/17/17 10:20 08/17/17 12:00 08/18/17 04:46 Blood Gas Puncture Site LT RADIAL Blood Gas Patient Temperature 98.6 Blood Gas HCO3 24 mmol/L Blood Gas Base Excess 0.2 mmol/L Blood Gas Oxygen Saturation 94 % Arterial Blood pH 7.42 Arterial Blood Partial Pressure CO2 38 mmHg Arterial Blood Partial Pressure O2 82 mmHg Arterial Blood Oxygen Content 14.5 Vol % Arterial Blood Carboxyhemoglobin 0.8 % Arterial Blood Methemoglobin 1.2 % Blood Gas Hemoglobin 10.9 G/DL Oxygen Delivery Device NASAL CANNULA Blood Gas Liter Flow 4 L/M Vancomycin Level Trough 12.6 MCG/ML White Blood Count 19.9 TH/MM3 Red Blood Count 3.78 MIL/MM3 Hemoglobin 11.0 GM/DL Hematocrit 33.2 % Mean Corpuscular Volume 87.9 FL Mean Corpuscular Hemoglobin 29.0 PG Mean Corpuscular Hemoglobin Concent 33.0 % Red Cell Distribution Width 17.2 % Platelet Count 293 TH/MM3 Mean Platelet Volume 7.8 FL Neutrophils (%) (Auto) 85.7 % Lymphocytes (%) (Auto) 6.4 % Monocytes (%) (Auto) 7.5 % Eosinophils (%) (Auto) 0.2 % Basophils (%) (Auto) 0.2 % Neutrophils # (Auto) 17.1 TH/MM3 Lymphocytes # (Auto) 1.3 TH/MM3 Monocytes # (Auto) 1.5 TH/MM3 Eosinophils # (Auto) 0.0 TH/MM3 Basophils # (Auto) 0.0 TH/MM3 CBC Comment AUTO DIFF Differential Total Cells Counted 100 Neutrophils % (Manual) 73 % Band Neutrophils % 11 % Lymphocytes % 9 % Monocytes % 7 % Neutrophils # (Manual) 16.7 TH/MM3 Differential Comment FINAL DIFF MANUAL Toxic Granulation 1+ Platelet Estimate NORMAL Platelet Morphology Comment NORMAL Blood Urea Nitrogen 11 MG/DL Creatinine 0.66 MG/DL Random Glucose 97 MG/DL Calcium Level 8.1 MG/DL Sodium Level 141 MEQ/L Potassium Level 3.3 MEQ/L Chloride Level 106 MEQ/L Carbon Dioxide Level 24.6 MEQ/L Anion Gap 10 MEQ/L Estimat Glomerular Filtration Rate 125 ML/MIN Imaging Last Impressions Chest Ultrasound 08/16/17 0000 Signed Impressions: Service Date/Time: Wednesday, August 16, 2017 20:34 - CONCLUSION: Right pleural effusion is too small for safe drainage. Peng Krishnan MD Chest CT 08/16/17 0000 Signed Impressions: Service Date/Time: Wednesday, August 16, 2017 15:25 - CONCLUSION: Very impressive consolidations right lower lobe, right middle lobe, and right upper lobe. Moderate size right pleural effusion. Almost the entire right lower lobe is consolidated. Minimal consolidation left lung base.. Jeremías Shaikh MD Chest X-Ray 08/15/17 0000 Signed Impressions: Service Date/Time: Tuesday, August 15, 2017 15:57 - CONCLUSION: 1. Diffuse interstitial prominence with patchy bilateral lower lobe airspace disease. Differential considerations bilateral lower lobe pneumonia versus aspiration ++/- interstitial pneumonia or atypical infection given above history. Fam Atkins MD Objective Remarks GENERAL: Well-nourished, well-developed patient. Lethargic SKIN: Warm and dry. HEAD: Normocephalic. EYES: No scleral icterus. No injection or drainage. NECK: Supple, trachea midline. No JVD or lymphadenopathy. CARDIOVASCULAR: Regular rate and rhythm without murmurs, gallops, or rubs. RESPIRATORY: Breath sounds equal bilaterally. Few scattered wheezing GASTROINTESTINAL: Abdomen soft, non-tender, nondistended. MUSCULOSKELETAL: No cyanosis, or edema. BACK: Nontender without obvious deformity. NEURO EXAM: No focal deficits A/P Assessment and Plan 1)Resp Insuff 2)Community-acquired pneumonia 3)Mild Lactic acidemia 4)Leukocytosis 5)Alcohol use disorder 6)Anemia 7) hypoalbuminemia Neuro: Monitor neuro status. Watch for signs of DT's. On CIWA protocol. Continue with Thiamine/MVI/Folic acid Pulm: Continue with oxygen keep sats >92%, Bronchodilators, place on Solumederol 40mg Q6 x 4 doses 08/16 CT [id number] right pleural effusions however ultrasound quantification revealed only 90 cc no thoracentesis indicated 08/17 US chest: Small effusion Incentive spirometry while awake CV: Monitor HR and BP keep MAP>65mmHg 08/17 lactic acid 1.9 08/16 2D echo-EF 50-55%, mild MVR, moderate TR, PAP 49 : Monitor renal function, I/O's, electrolytes replacement as needed D/c IVF. Will need K replacement today GI: Heart healthy diet Bowel regimen Albumin 1.7-malnourished secondary to EtOH use ID: Continue with abx ( Vanco, Zosyn, Azithromycin) ID following Follow up on blood cultures, 08/16strep pneumonia, legionella urinary Ag- neg Check nasal washing r/o influenza Heme: Monitor CBC Endo: SSI for glycemic control DVT GI prophylaxis -Jadiel's and SCDs -Subcu Lovenox -Pepcid level 2 follow-up Rosario Landaverde MD Aug 18, 2017 10:01
[2017-08-18] MEDS: SODIUM CHLORIDE 0.9% FLUSH 10 ML FLUSH IV FLUSH SCH ×2 (10:05→20:52)
[2017-08-18] MEDS: ENOXAPARIN SODIUM 40 MG/0.4 ML SYRINGE SQ SCH (10:06)
[2017-08-18] MEDS: methylPREDNISolone SOD SUCC 40 MG/1 ML VIAL IV PUSH SCH ×2 (14:06→17:19)
[2017-08-18] MEDS: AZITHROMYCIN INJ 500 MG in SODIUM CHLOR 0.9% 250 ML INJ 250 ML IV SCH (17:20)
[2017-08-18] MEDS: POTASSIUM CHLORIDE 25 MEQ EFFERVESCENT TAB PO PRN (20:52)
[2017-08-19] VITALS (25 sets, daily range): BP systolic 153–177; BP diastolic 89–103; PULSE 66–97; RESP 20–22; TEMP 97.8–99; O2SAT 95–100
[2017-08-19] MEDS: VANCOMYCIN INJ 2,000 MG in SODIUM CHLORID 0.9% 500 ML INJ 500 ML IV SCH ×2 (00:03→12:54)
[2017-08-19] MEDS: methylPREDNISolone SOD SUCC 40 MG/1 ML VIAL IV PUSH SCH ×5 (00:03→22:47)
[2017-08-19] MEDS: RESP: ALBUTEROL 2.5 MG/IPRATROPIUM 0.5 MG NEB (SCH) NEB ×7 (00:50→23:47)
[2017-08-19] MEDS: CHLORHEXIDINE GLUCONATE 2 % 1 PACK (2 CLOTHS)(taper/protocol) TOPICAL SCH ×2 (04:00→22:47)
[2017-08-19] MEDS: PIPERACIL-TAZO 4.5 GM PREMIX 100 ML IV SCH ×4 (04:00→19:50)
--- NOTE | 2017-08-19 04:49 | RADRPT ---
EXAM DATE/TIME: 08/19/2017 03:48 [facility] COMPARISON: CHEST PA & LAT, August 15, 2017, 15:57. INDICATIONS : Shortness of breath, possible pulmonary disease. MEDICAL HISTORY : Sepsis. SURGICAL HISTORY : None. ENCOUNTER: Subsequent ACUITY: 1 week PAIN SCORE: 0/10 LOCATION: Bilateral chest FINDINGS: Significant increase in opacities in the lower lungs bilaterally, now with consolidation and loss of delineation of both hemidiaphragms. Also opacity tracking laterally to the right apex characteristic of associated pleural effusion. CONCLUSION: Significant increase in bilateral lung consolidation and right pleural effusion. Liu Rey MD on August 19, 2017 at 4:45 Board Certified Radiologist. This report was verified electronically.
[2017-08-19 07:13] LABS: AUTOMATED NEUTROPHIL # 22.6 TH/MM3 (1.8-7.7); BASOPHIL # 0.2 TH/MM3 (0-0.2); HEMATOCRIT 31.8 % (39.0-51.0); HEMOGLOBIN 10.6 GM/DL (13.0-17.0); LYMPHOCYTE # 0.7 TH/MM3 (1.0-4.8); MEAN CELL VOLUME 87.6 FL (80.0-100.0); MEAN CORPUSCULAR HEMOGLOBIN 29.3 PG (27.0-34.0); MEAN CORPUSCULAR HGB CONC 33.4 % (32.0-36.0); MEAN PLATELET VOLUME 7.4 FL (7.0-11.0); MONO % 3.6 % (0.0-8.0); MONOCYTE # 0.9 TH/MM3 (0-0.9); NEUT % 92.4 % (16.0-70.0); PLATELET COUNT 306 TH/MM3 (150-450); RED BLOOD COUNT 3.63 MIL/MM3 (4.50-5.90); RED CELL DISTRIBUTION WIDTH 17.2 % (11.6-17.2); WHITE BLOOD COUNT 24.5 TH/MM3 (4.0-11.0)
[2017-08-19] MEDS: ENOXAPARIN SODIUM 40 MG/0.4 ML SYRINGE SQ SCH (07:41)
[2017-08-19] MEDS: SODIUM CHLORIDE 0.9% FLUSH 10 ML FLUSH IV FLUSH SCH ×2 (07:41→19:50)
[2017-08-19 07:43] LABS: BICARBONATE 26.7 MEQ/L (21.0-32.0); CALCIUM 8.3 MG/DL (8.5-10.1); CREATININE 0.65 MG/DL (0.60-1.30); MAGNESIUM 2.5 MG/DL (1.5-2.5)
[2017-08-19 07:51] LABS: PHOSPHORUS 2.2 MG/DL (2.5-4.9)
[2017-08-19 09:45] LABS: BANDS 10 % (0-6); KERATOCYTES 1+ (NORMAL); LYMPHOCYTES 1 % (9-44); MONOCYTES 1 % (0-8); POLYS (SEG NEUTROPHILS) 88 % (16-70)
[2017-08-19] MEDS: POTASSIUM CHLORIDE 25 MEQ EFFERVESCENT TAB PO PRN (09:45)
[2017-08-19 09:46] LABS: TOXIC GRANULATION 1+ (NORMAL)
[2017-08-19] MEDS ORDERED: PHARMACY ORDERED LAB ONE (11:45)
--- NOTE | 2017-08-19 14:51 | HHI.CCPN ---
Subjective Remarks/Hospital Course 57-year-old Swiss-speaking only male presents for evaluation of sore throat and chest discomfort. Per patient he has had the sore throat since Monday and then developed the bilateral rib pain with cough and deep breaths for the past couple days. Patient has been taking [id number] medication with minimal relief. He has been found to have high fevers and chills. He denies any other medical issues. Denies smoking but states drinking alcohol on a daily occasion. No medical issues as far as he knows. 08/16 Patient is on 3L oxygen Tmax 102.3 08/17: T-max 102.6. Patient noted to have increasing oxygen requirements over the last [address] revealed moderate size right pleural effusion. Radiology consulted for quantification of fluid and possible thoracentesis/ pleural fluid analysis. Leukocytosis resolving. 08/18 Patient is on 2L oxygen, afebrile. WBC is trending down. 08/19: Remains on nasal cannula O2. Not in any acute distress. Minimal tachypnea noted. Objective Vital Signs Date Time Temp Pulse Resp B/P (MAP) Pulse Ox O2 Delivery O2 Flow Rate FiO2 08/19/17 13:00 83 96 08/19/17 12:00 97.8 20 165/96 (119) 08/19/17 08:45 Nasal Cannula 4.00 Intake and Output 08/19/17 08/19/17 08/20/17 08:00 16:00 00:00 Intake Total 240 ml Output Total 2336 ml Balance -2096 ml Result Diagram: 08/19/17 0652 08/19/17 0652 Imaging Last Impressions Chest Ultrasound 08/16/17 0000 Signed Impressions: Service Date/Time: Wednesday, August 16, 2017 20:34 - CONCLUSION: Right pleural effusion is too small for safe drainage. Peng Krishnan MD Chest CT 08/16/17 0000 Signed Impressions: Service Date/Time: Wednesday, August 16, 2017 15:25 - CONCLUSION: Very impressive consolidations right lower lobe, right middle lobe, and right upper lobe. Moderate size right pleural effusion. Almost the entire right lower lobe is consolidated. Minimal consolidation left lung base.. Jeremías Shaikh MD Chest X-Ray 08/15/17 0000 Signed Impressions: Service Date/Time: Tuesday, August 15, 2017 15:57 - CONCLUSION: 1. Diffuse interstitial prominence with patchy bilateral lower lobe airspace disease. Differential considerations bilateral lower lobe pneumonia versus aspiration ++/- interstitial pneumonia or atypical infection given above history. Fam Atkins MD Objective Remarks GENERAL: Well-nourished, well-developed patient. Lethargic SKIN: Warm and dry. HEAD: Normocephalic. EYES: No scleral icterus. No injection or drainage. NECK: Supple, trachea midline. No JVD or lymphadenopathy. CARDIOVASCULAR: Regular rate and rhythm without murmurs, gallops, or rubs. RESPIRATORY: Breath sounds equal bilaterally. Few scattered wheezing GASTROINTESTINAL: Abdomen soft, non-tender, nondistended. MUSCULOSKELETAL: No cyanosis, or edema. BACK: Nontender without obvious deformity. NEURO EXAM: No focal deficits A/P Assessment and Plan 1)Resp Insuff 2)Community-acquired pneumonia 3)Mild Lactic acidemia 4)Leukocytosis 5)Alcohol use disorder 6)Anemia 7) hypoalbuminemia Neuro: Monitor neuro status. Watch for signs of DT's. On CIWA protocol. Continue with Thiamine/MVI/Folic acid Pulm: Continue with oxygen keep sats >92%, Bronchodilators, place on Solumederol 40mg Q6 x 4 doses 08/16 CT sooxd-arymz-vxludrup right pleural effusions however ultrasound quantification revealed only 90 cc no thoracentesis indicated 08/17 US chest: Small effusion Incentive spirometry while awake CV: Monitor HR and BP keep MAP>65mmHg 08/17 lactic acid 1.9 08/16 2D echo-EF 50-55%, mild MVR, moderate TR, PAP 49 : Monitor renal function, I/O's, electrolytes replacement as needed D/c IVF. Will need K replacement today GI: Heart healthy diet Bowel regimen Albumin 1.7-malnourished secondary to EtOH use ID: Continue with abx ( Vanco, Zosyn, Azithromycin) ID following Follow up on blood cultures, 08/16strep pneumonia, legionella urinary Ag- neg Check nasal washing r/o influenza Heme: Monitor CBC Endo: SSI for glycemic control DVT GI prophylaxis -Jadiel's and SCDs -Subcu Lovenox -Pepcid level 2 follow-up Brendan Saunders MD Aug 19, 2017 14:51
[2017-08-19] MEDS: AZITHROMYCIN INJ 500 MG in SODIUM CHLOR 0.9% 250 ML INJ 250 ML IV SCH (16:28)
[2017-08-19] MEDS: LABETALOL HCL 100 MG/20 ML VIAL IV PUSH PRN ×3 (16:42→22:47)
[2017-08-19] MEDS: VANCOMYCIN 1,500 MG/NS 500 ML IV SCH ×2 (19:50)
--- NOTE | 2017-08-19 20:40 | HHI.IDPN ---
Subjective Subjective Remarks low grade fever remains on NC O2 CXR worse unable to expectorate Antibiotics azithro vancomycin zosyn Allergies: Coded Allergies: No Known Allergies (Unverified Allergy, Unknown, 08/15/17) Objective . Vital Signs Date Time Temp Pulse Resp B/P (MAP) Pulse Ox O2 Delivery O2 Flow Rate FiO2 08/19/17 19:00 98 Nasal Cannula 4.00 08/19/17 18:45 85 08/19/17 18:38 88 08/19/17 18:03 86 08/19/17 18:03 177/95 (122) 08/19/17 18:00 85 98 08/19/17 18:00 85 08/19/17 17:00 81 100 08/19/17 17:00 81 08/19/17 16:00 83 175/96 (122) 98 08/19/17 16:00 83 08/19/17 15:06 88 08/19/17 15:05 89 08/19/17 15:00 88 08/19/17 14:57 90 08/19/17 14:00 91 08/19/17 13:00 83 96 08/19/17 13:00 83 08/19/17 12:00 86 08/19/17 12:00 97.8 86 20 165/96 (119) 98 08/19/17 11:00 90 08/19/17 10:06 97 08/19/17 10:00 92 08/19/17 08:45 100 Nasal Cannula 4.00 08/19/17 08:00 80 08/19/17 08:00 99.0 80 175/96 (122) 97 08/19/17 07:00 99 Nasal Cannula 4.00 08/19/17 06:00 83 08/19/17 04:00 83 08/19/17 04:00 98.6 83 164/94 (117) 95 08/19/17 02:00 81 08/19/17 00:00 66 08/19/17 00:00 98.4 66 20 153/89 (110) 96 08/18/17 22:00 81 08/18/17 21:10 97 Nasal Cannula 2.00 . Laboratory Tests Test 08/18/17 04:46 08/19/17 06:52 White Blood Count 19.9 TH/MM3 24.5 TH/MM3 Red Blood Count 3.78 MIL/MM3 3.63 MIL/MM3 Hemoglobin 11.0 GM/DL 10.6 GM/DL Hematocrit 33.2 % 31.8 % Mean Corpuscular Volume 87.9 FL 87.6 FL Mean Corpuscular Hemoglobin 29.0 PG 29.3 PG Mean Corpuscular Hemoglobin Concent 33.0 % 33.4 % Red Cell Distribution Width 17.2 % 17.2 % Platelet Count 293 TH/MM3 306 TH/MM3 Mean Platelet Volume 7.8 FL 7.4 FL Neutrophils (%) (Auto) 85.7 % 92.4 % Lymphocytes (%) (Auto) 6.4 % 3.0 % Monocytes (%) (Auto) 7.5 % 3.6 % Eosinophils (%) (Auto) 0.2 % 0.0 % Basophils (%) (Auto) 0.2 % 1.0 % Neutrophils # (Auto) 17.1 TH/MM3 22.6 TH/MM3 Lymphocytes # (Auto) 1.3 TH/MM3 0.7 TH/MM3 Monocytes # (Auto) 1.5 TH/MM3 0.9 TH/MM3 Eosinophils # (Auto) 0.0 TH/MM3 0.0 TH/MM3 Basophils # (Auto) 0.0 TH/MM3 0.2 TH/MM3 CBC Comment AUTO DIFF AUTO DIFF Differential Total Cells Counted 100 100 Neutrophils % (Manual) 73 % 88 % Band Neutrophils % 11 % 10 % Lymphocytes % 9 % 1 % Monocytes % 7 % 1 % Neutrophils # (Manual) 16.7 TH/MM3 24.0 TH/MM3 Differential Comment FINAL DIFF MANUAL FINAL DIFF MANUAL Toxic Granulation 1+ 1+ Platelet Estimate NORMAL NORMAL Platelet Morphology Comment NORMAL NORMAL Keratocytes 1+ Laboratory Tests Test 08/18/17 04:46 08/19/17 01:01 08/19/17 06:52 08/19/17 17:09 Blood Urea Nitrogen 11 MG/DL 10 MG/DL Creatinine 0.66 MG/DL 0.65 MG/DL Random Glucose 97 MG/DL 169 MG/DL Calcium Level 8.1 MG/DL 8.3 MG/DL Sodium Level 141 MEQ/L 140 MEQ/L Potassium Level 3.3 MEQ/L 3.6 MEQ/L 3.3 MEQ/L 3.6 MEQ/L Chloride Level 106 MEQ/L 105 MEQ/L Carbon Dioxide Level 24.6 MEQ/L 26.7 MEQ/L Anion Gap 10 MEQ/L 8 MEQ/L Estimat Glomerular Filtration Rate 125 ML/MIN 127 ML/MIN Phosphorus Level 2.2 MG/DL Magnesium Level 2.5 MG/DL Imaging Last Impressions Chest X-Ray 08/19/17 0000 Signed Impressions: Service Date/Time: Saturday, August 19, 2017 03:48 - CONCLUSION: Significant increase in bilateral lung consolidation and right pleural effusion. Liu Rey MD Chest Ultrasound 08/16/17 0000 Signed Impressions: Service Date/Time: Wednesday, August 16, 2017 20:34 - CONCLUSION: Right pleural effusion is too small for safe drainage. Peng Krishnan MD Chest CT 08/16/17 0000 Signed Impressions: Service Date/Time: Wednesday, August 16, 2017 15:25 - CONCLUSION: Very impressive consolidations right lower lobe, right middle lobe, and right upper lobe. Moderate size right pleural effusion. Almost the entire right lower lobe is consolidated. Minimal consolidation left lung base.. Jeremías Shaikh MD Physical Exam CONSTITUTIONAL/GENERAL: This is an adequately nourished patient, in no apparent distress. TUBES/LINES/DRAINS: SKIN: No jaundice, rashes, or lesions. Skin temperature appropriate. Not diaphoretic. NECK: Trachea midline. Supple, nontender. No palpable thyroid enlargement or nodularity. CARDIOVASCULAR: Regular rate and rhythm without murmurs, gallops, or rubs. No JVD. Peripheral pulses symmetric. RESPIRATORY/CHEST: Symmetric, unlabored respirations. Clear to auscultation. Breath decreased R base. No wheezes, rales, or rhonchi. GASTROINTESTINAL: Abdomen soft, non-tender, nondistended. No hepato-splenomegaly , or palpable masses. No guarding. Bowel sounds present. GENITOURINARY: Without palpable bladder distension. MUSCULOSKELETAL: Extremities without clubbing, cyanosis, or edema. No joint tenderness or effusion noted. No calf tenderness. No mottling or clubbing. LYMPHATICS: No palpable cervical or supraclavicular adenopathy. NEUROLOGICAL: Awake and alert. Motor and sensory grossly within normal limits. Follows commands. Clear speech. Moves all extremities. PSYCHIATRIC: calm cooperative Assessment & Plan Remarks PNA ( b/l infiltrates, feverr, pleuritic chest pain and marked leukocytosis) - unable to espectorate - worsening CXR - requiring more NC O2 Worsening R side infilatreate and effusion 2 D echo with nl LVSF chk resp pathogens panel cont current abx repeat CT chest to eval worsening effusion CT guided toracocenthesis if effusion is worse Celina Eastman MD Aug 19, 2017 20:39
--- NOTE | 2017-08-19 22:39 | RADRPT ---
EXAM DATE/TIME: 08/19/2017 22:21 [facility] COMPARISON: CHEST SINGLE AP, August 19, 2017, 3:48. CT THORAX W/O CONTRAST, August 16, 2017, 15:25. INDICATIONS : Evaluate pleural effusions. RADIATION DOSE: 12.30 CTDIvol (mGy) MEDICAL HISTORY : None SURGICAL HISTORY : None. ENCOUNTER: Subsequent ACUITY: 3 days PAIN SCALE: 0/10 LOCATION: Bilateral chest TECHNIQUE: Volumetric scanning of the chest was performed. Using automated exposure control and adjustment of t he mA and/or kV according to patient size, radiation dose was kept as low as reasonably achievable to obtain optimal diagnostic quality images. DICOM format image data is available electronically for r eview and comparison. Follow-up recommendations for detected pulmonary nodules are based at a minimum on nodule size and pa tient risk factors according to Fleischner Society Guidelines. FINDINGS: LUNGS: There is bibasilar consolidation. Confluent density left upper lobe measures 2.7 cm. PLEURAE: There is large right and small left pleural effusion. MEDIASTINUM: The heart and great vessels demonstrate no acute abnormality. There is no mediastinal or hilar lymph adenopathy. AXILLAE: Within normal limits. No lymphadenopathy. MUSCULOSKELETAL: Within normal limits for patient age. MISCELLANEOUS: The visualized upper abdominal organs demonstrate no acute abnormality. CONCLUSION: 1. Bibasilar consolidation. 2. Large right and small left pleural effusion. 3. Confluent density left upper lobe measures 3.7 cm. This is likely infectious or inflammatory. Nader Cisneros MD on August 19, 2017 at 22:34 Board Certified Radiologist. This report was verified electronically.
[2017-08-20] VITALS (19 sets, daily range): BP systolic 137–179; BP diastolic 69–98; PULSE 76–108; RESP 20–22; TEMP 97.9–98.2; O2SAT 94–100
[2017-08-20] MEDS: LABETALOL HCL 100 MG/20 ML VIAL IV PUSH PRN (01:07)
[2017-08-20] MEDS: PIPERACIL-TAZO 4.5 GM PREMIX 100 ML IV SCH ×4 (02:55→20:13)
[2017-08-20] MEDS: VANCOMYCIN 1,500 MG/NS 500 ML IV SCH ×6 (02:55→20:13)
[2017-08-20] MEDS: RESP: ALBUTEROL 2.5 MG/IPRATROPIUM 0.5 MG NEB (SCH) NEB ×5 (03:43→20:18)
[2017-08-20] MEDS: methylPREDNISolone SOD SUCC 40 MG/1 ML VIAL IV PUSH SCH ×2 (04:24→20:13)
[2017-08-20] MEDS: SODIUM CHLORIDE 0.9% FLUSH 10 ML FLUSH IV FLUSH SCH ×2 (07:33→20:13)
[2017-08-20] MEDS: hydrALAZINE HCL 20 MG/ML VIAL IV PUSH PRN ×2 (07:35→20:12)
[2017-08-20] MEDS: ENOXAPARIN SODIUM 40 MG/0.4 ML SYRINGE SQ SCH (09:00)
--- NOTE | 2017-08-20 11:17 | HHI.PR ---
Subjective Remarks The patient was resting in bed. His was at the bedside. The patient denied any pain and was able to take deep breaths. Discussed with nurse at the bedside. Objective Vitals Vital Signs Date Time Temp Pulse Resp B/P (MAP) Pulse Ox O2 Delivery O2 Flow Rate FiO2 08/20/17 10:00 104 08/20/17 08:40 108 08/20/17 08:40 108 137/69 (91) 95 08/20/17 08:20 102 08/20/17 08:20 102 141/82 (101) 97 08/20/17 08:00 92 08/20/17 08:00 97.9 92 150/86 (107) 96 08/20/17 07:57 94 Nasal Cannula 2.00 08/20/17 07:00 98 Nasal Cannula 2.00 08/20/17 06:00 89 08/20/17 04:00 98.0 92 20 155/86 (109) 94 08/20/17 04:00 92 08/20/17 02:00 86 08/20/17 00:00 98.0 84 22 177/90 (119) 98 08/20/17 00:00 84 08/19/17 22:00 87 08/19/17 21:25 100 Nasal Cannula 2.00 08/19/17 20:00 98.0 82 22 172/103 (126) 98 08/19/17 20:00 82 08/19/17 19:00 98 Nasal Cannula 4.00 08/19/17 18:45 85 08/19/17 18:38 88 08/19/17 18:03 86 08/19/17 18:03 177/95 (122) 08/19/17 18:00 85 98 08/19/17 18:00 85 08/19/17 17:00 81 100 08/19/17 17:00 81 08/19/17 16:00 83 175/96 (122) 98 08/19/17 16:00 83 08/19/17 15:06 88 08/19/17 15:05 89 08/19/17 15:00 88 08/19/17 14:57 90 08/19/17 14:00 91 08/19/17 13:00 83 96 08/19/17 13:00 83 08/19/17 12:00 86 08/19/17 12:00 97.8 86 20 165/96 (119) 98 08/19/17 11:00 90 I/O 08/19/17 08/19/17 08/19/17 08/20/17 08/20/17 08/20/17 07:00 15:00 23:00 07:00 15:00 23:00 Intake Total 240 ml 1190 ml Output Total 2336 ml 1600 ml Balance -2096 ml -410 ml Intake Oral 240 ml 240 ml IV Total 950 ml Output Urine Total 2336 ml 1600 ml # Bowel Movements 0 1 Result Diagram: 08/19/17 0652 08/19/17 1709 Imaging Last Impressions Chest X-Ray 08/19/17 0000 Signed Impressions: Service Date/Time: Saturday, August 19, 2017 03:48 - CONCLUSION: Significant increase in bilateral lung consolidation and right pleural effusion. Liu Rey MD Chest CT 08/19/17 0000 Signed Impressions: Service Date/Time: Saturday, August 19, 2017 22:21 - CONCLUSION: 1. Bibasilar consolidation. 2. Large right and small left pleural effusion. 3. Confluent density left upper lobe measures 3.7 cm. This is likely infectious or inflammatory. Nader Cisneros MD Chest Ultrasound 08/16/17 0000 Signed Impressions: Service Date/Time: Wednesday, August 16, 2017 20:34 - CONCLUSION: Right pleural effusion is too small for safe drainage. Peng Krishnan MD Objective Remarks GENERAL: Well-nourished, well-developed patient. SKIN: Warm and dry. HEAD: Normocephalic. EYES: No scleral icterus. No injection or drainage. NECK: Supple, trachea midline. No JVD or lymphadenopathy. CARDIOVASCULAR: Regular rate and rhythm without murmurs, gallops, or rubs. RESPIRATORY: Breath sounds equal bilaterally. Few scattered wheezing. GASTROINTESTINAL: Abdomen soft, non-tender, nondistended. MUSCULOSKELETAL: No cyanosis, or edema. BACK: Nontender without obvious deformity. NEURO: No focal deficits Medications and IVs Current Medications Medications (Trade) Dose Ordered Sig/Santo Route Start Time Stop Time Status Last Admin (NS Flush) 2 ml UNSCH PRN IV FLUSH 08/15/17 17:00 (NS Flush) 2 ml BID IV FLUSH 08/15/17 21:00 08/20/17 07:33 (Narcan Inj) 0.4 mg UNSCH PRN IV PUSH 08/15/17 17:00 (Romazicon Inj) 0.2 mg Q1M PRN IV PUSH 08/15/17 20:15 (Ativan) 1 mg Q4H PRN PO 08/15/17 20:15 (Ativan Inj) 1 mg Q4H PRN IV PUSH 08/15/17 20:15 08/17/17 17:58 (Ativan) 2 mg Q2H PRN PO 08/15/17 20:15 (Ativan Inj) 2 mg Q2H PRN IV PUSH 08/15/17 20:15 (Ativan Inj) 2 mg Q1H PRN IV PUSH 08/15/17 20:15 (Ativan Inj) 2 mg Q15M PRN IV PUSH 08/15/17 20:15 (Lovenox Inj) 40 mg Q24H SQ 08/16/17 09:00 08/19/17 07:41 Piperacillin Sod/ Tazobactam Sod 100 ml @ 200 mls/hr Q6H IV 08/15/17 22:00 08/20/17 10:21 Azithromycin 500 mg/Sodium Chloride 250 ml @ 250 mls/hr Q24H IV 08/16/17 16:00 08/19/17 16:28 Miscellaneous Information Patient in critical care unit? Ass... [id number] .XX 08/15/17 21:45 08/15/17 21:45 (Chlorhexidine 2% Cloth) 3 pack UNSCH PRN TOPICAL 08/15/17 21:45 08/20/17 21:31 Pharmacy Profile Note 0 ml @ 0 mls/hr UNSCH OTHER 08/16/17 08:00 Potassium Chloride 100 ml @ 50 mls/hr Q2H PRN IV 08/16/17 08:30 Potassium Chloride 100 ml @ 50 mls/hr Q2H PRN IV 08/16/17 08:30 (K-Lyte Cl Eff) 50 meq UNSCH PRN PO 08/16/17 08:30 08/19/17 09:45 Potassium Chloride 100 ml @ 25 mls/hr UNSCH PRN IV 08/16/17 08:30 Potassium Chloride 100 ml @ 50 mls/hr Q2H PRN IV 08/16/17 08:30 Magnesium Sulfate 4 gm/Sodium Chloride 100 ml @ 50 mls/hr UNSCH PRN IV 08/16/17 08:30 (Mag-Ox) 800 mg UNSCH PRN PO 08/16/17 08:30 Magnesium Sulfate 2 gm/Sodium Chloride 100 ml @ 50 mls/hr UNSCH PRN IV 08/16/17 08:30 (K-Phos) 2,000 mg Q4H PRN PO 08/16/17 08:30 Sodium Phosphate 30 mmol/Sodium Chloride 250 ml @ 42 mls/hr UNSCH PRN IV 08/16/17 08:30 08/17/17 05:36 (K-Phos) 2,000 mg UNSCH PRN PO/TUBE 08/16/17 08:30 Potassium Phosphate 30 mmol/ Sodium Chloride 260 ml @ 42 mls/hr UNSCH PRN IV 08/16/17 08:30 (Tylenol) 650 mg Q4H PRN PO 08/16/17 21:30 08/16/17 21:34 (Duoneb Neb) 1 ampule Q2HR NEB PRN NEB 08/17/17 10:15 (Duoneb Neb) 1 ampule Q4HR NEB NEB 08/18/17 12:00 08/20/17 07:57 (SoluMEDROL INJ) 40 mg Q6HR IV PUSH 08/18/17 12:00 08/20/17 04:24 Vancomycin HCl 1500 mg/Sodium Chloride 515 ml @ 257.5 mls/ hr Q8H IV 08/19/17 20:00 08/20/17 02:55 ([facility] Ordered Lab Info) SPECIFIC LAB TO BE DRAWN:VANCO TROUGH DATE... ONCE ONCE .XX 08/21/17 03:45 08/21/17 03:46 (Trandate Inj) 10 mg Q2H PRN IV PUSH 08/19/17 16:30 08/20/17 01:07 (Apresoline Inj) 10 mg Q30M PRN IV PUSH 08/20/17 01:30 08/20/17 07:35 A/P Assessment and Plan CAP 08/16 CT aorvm-hlgmu-fjojddww right pleural effusions however ultrasound quantification revealed only 90 cc no thoracentesis indicated. 08/19 CT: Bibasilar consolidation; Large right and small left pleural effusion; Confluent density left upper lobe measures 3.7 cm; This is likely infectious or inflammatory. ID consult appreciated. 2D echo-EF 50-55%, mild MVR, moderate TR. - Continue with oxygen keep sats >92%. - Bronchodilators. - wean Solumedrol to 40 mg IV BID. - Incentive spirometry while awake. - IR thoracentesis requested. - pulmonology consult pending. - vancomycin, azithromycin and Zosyn per ID. - PT. Anemia Hemoglobin is stable. - follow CBC and transfuse as needed. Alcohol abuse The pt drinks 3-4 beers daily. - Watch for signs of DT's. On CIWA protocol. - Continue with Thiamine/MVI/Folic acid. PPx: Kwasi Juares DO Aug 20, 2017 11:17
[2017-08-20] MEDS ORDERED: LIDOCAINE HCL 1% 20 ML VIAL ONE (11:30)
[2017-08-20 12:35] LABS: AUTOMATED NEUTROPHIL # 24.8 TH/MM3 (1.8-7.7); BASOPHIL % 0.2 % (0.0-2.0); HEMATOCRIT 32.6 % (39.0-51.0); HEMOGLOBIN 10.9 GM/DL (13.0-17.0); LYMPH % 4.8 % (9.0-44.0); LYMPHOCYTE # 1.3 TH/MM3 (1.0-4.8); MEAN CELL VOLUME 86.6 FL (80.0-100.0); MEAN CORPUSCULAR HEMOGLOBIN 28.9 PG (27.0-34.0); MEAN CORPUSCULAR HGB CONC 33.4 % (32.0-36.0); MEAN PLATELET VOLUME 7.5 FL (7.0-11.0); MONO % 4.4 % (0.0-8.0); MONOCYTE # 1.2 TH/MM3 (0-0.9); NEUT % 90.6 % (16.0-70.0); PLATELET COUNT 434 TH/MM3 (150-450); RED BLOOD COUNT 3.76 MIL/MM3 (4.50-5.90); RED CELL DISTRIBUTION WIDTH 17.3 % (11.6-17.2); WHITE BLOOD COUNT 27.4 TH/MM3 (4.0-11.0)
[2017-08-20] MEDS ORDERED: fentaNYL CITRATE 250 MCG/5 ML AMP ONE (12:46)
[2017-08-20 13:08] LABS: ALBUMIN 1.7 GM/DL (3.4-5.0); BICARBONATE 25.6 MEQ/L (21.0-32.0); BLOOD UREA NITROGEN 12 MG/DL (7-18); CALCIUM 7.9 MG/DL (8.5-10.1); CHLORIDE 108 MEQ/L (98-107); CREATININE 0.62 MG/DL (0.60-1.30); GLOMERULAR FILTRATION RATE 134 ML/MIN (>89); GLUCOSE,RANDOM 112 MG/DL (74-106); SODIUM (NA) 142 MEQ/L (136-145)
[2017-08-20 13:09] LABS: ALT (GPT) 59 U/L (12-78); AST (GOT) 46 U/L (15-37)
[2017-08-20 13:11] LABS: ALKALINE PHOSPHATASE 146 U/L (45-117); TOTAL BILIRUBIN ADULT 0.4 MG/DL (0.2-1.0)
[2017-08-20 13:33] LABS: BANDS 11 % (0-6); CORRECTED NUCLEATED RBC 1 /100 WBC (0-0); LYMPHOCYTES 5 % (9-44); MONOCYTES 5 % (0-8); NEUTROPHIL # MANUAL DIFF 24.7 TH/MM3 (1.8-7.7); NUCLEATED RED BLOOD CELL 1 (0-0); POLYS (SEG NEUTROPHILS) 79 % (16-70); TOXIC GRANULATION 1+ (NORMAL)
--- NOTE | 2017-08-20 13:48 | PD.RAD ---
Post CT Procedure Prog Note Pre Procedure Diagnosis: (1) Pneumonia (2) Pleural effusion on right Post Procedure Diagnosis: (1) Pneumonia (2) Pleural effusion on right Procedure Date: Aug 20, 2017 Supervising Radiologist: Darrick Cunha Anesthesia: Local, Analgesia Plan of Activity Patient to Unit: Nursing Unit Patient Condition: Good See PACS Report for procedural detail/treatment Drainage Procedure Procedure 1 Imaging Guidance: CT Side: Right Procedure Type: Thoracentesis Procedure: Placement Peruvian: 10 (non-locking) Drainage: Pleurovac (40 cmH2O) Fluid Removal (CCs): 1000 Fluid Description: Darrick Mike MD Aug 20, 2017 13:48
--- NOTE | 2017-08-20 14:03 | RADRPT ---
EXAM DATE/TIME: 08/20/2017 13:49 [facility] COMPARISON: CHEST SINGLE AP, August 19, 2017, 3:48. INDICATIONS : Post chest tube placement. MEDICAL HISTORY : Sepsis. SURGICAL HISTORY : None. ENCOUNTER: Subsequent ACUITY: 4 - 6 days PAIN SCORE: 0/10 LOCATION: Bilateral chest FINDINGS: A single frontal expiratory view of the chest was performed. Interval placement of a Morrison loop thorac ostomy tube on the right. Significant improvement in the previously seen large right pleural effusion . No pneumothorax. Small left pleural effusion persists with some prominent interstitial markings pos sibly representing some degree of vascular congestion or volume overload. Heart size is borderline pr ominent. CONCLUSION: 1. Marked improvement in the previously seen large right sided effusion post right-sided thoracostomy tube placement. No pneumothorax. 2. Persistent left-sided pleural effusion with a small residual right-sided effusion. 3. Cardiomegaly with some interstitial prominence possibly representing some degree of vascular conge stion or volume overload. Darrick Cunha MD on August 20, 2017 at 13:58 Board Certified Radiologist. This report was verified electronically.
--- NOTE | 2017-08-20 14:08 | RADRPT ---
EXAM DATE/TIME: 08/20/2017 12:54 INDICATIONS : Pleural effusion. MEDICATION(S): 1.) 2 mg lorazepam (Ativan) IV 2.) 250 mcg fentanyl (Sublimaze) IV DEVICE(S): 1.) 10 Fr Lurdes FLUID: Total volume of 1000 cc of clear, yellow fluid was removed. Fluid was sent for laboratory ordered studies. MEDICAL HISTORY : None. SURGICAL HISTORY : None. ENCOUNTER: Initial ACUITY: 1 day PAIN SCORE: 0/10 LOCATION: Bilateral chest PROCEDURE: 1. CT guided Right thoracentesis with chest tube placement. 3. EKG and oximetry remained stable throughout the procedure. The site was prepped in sterile fashion. Full sterile technique was used, including cap, mask, steri le gloves and gown and a large sterile sheet. Hand hygiene and 2% chlorhexidine and/or betadine/alco hol prep was utilized per protocol for cutaneous antisepsis. The skin and subcutaneous tissues were infiltrated with local anesthetic solution. Using automated exposure control and adjustment of the m A and/or kV according to patient size, radiation dose was kept as low as reasonably achievable to obt ain optimal diagnostic quality images. DICOM format image data is available electronically for revie w and comparison. Under CT guidance a 18 gauge Guerin blunt needle was advanced into the right pleural space. 3 cc flu id were gently aspirated out of the chest. Over a Arndt wire, the tract was serially dilated and a 10 Tajik nonlocking tube was inserted. Post procedural scan show reduction in the amount of fluid with no evidence of pneumothorax. The patient tolerated the procedure well and there were no complications. EKG and oximetry remained s table throughout the procedure. The patient was sent to recovery in stable condition. CONCLUSION: Uncomplicated CT-guided thoracentesis. 1000 cc of straw-colored fluid was immediately removed and sent to laboratory for analysis. Darrick Cunha MD on August 20, 2017 at 14:01 Board Certified Radiologist. This report was verified electronically.
[2017-08-20] MEDS: AZITHROMYCIN INJ 500 MG in SODIUM CHLOR 0.9% 250 ML INJ 250 ML IV SCH (16:08)
[2017-08-20 16:17] LABS: PLEURAL FLUID HISTIOCYTES 1 %; PLEURAL FLUID LYMPHS 3 %; PLEURAL FLUID MONOS 2 %; PLEURAL FLUID POLYS (SEGS) 94 %
[2017-08-20 16:18] LABS: PLEURAL FLUID RBC 102 /MM3 (0-0); PLEURAL FLUID WBC 1741 /MM3 (0-10)
[2017-08-20] MEDS: POTASSIUM CHLOR 20 MEQ PREMIX 100 ML IV PRN ×4 (16:24→22:13)
--- NOTE | 2017-08-20 16:42 | MB ---
cc: Obed Slaughter MD DATE: 08/20/2017 REQUESTING PHYSICIAN: Kwasi Kraft DO REASON FOR CONSULTATION: Lung infiltrate and pleural effusions. HISTORY OF PRESENT ILLNESS: Mr. Henderson is a 57-year-old male with a history of alcohol use. No nicotine use. He works in [employer]. The patient was brought to the hospital with worsening of his cough, shortness of breath, fever and left-sided chest pain. He was worked up in the hospital. He had a chest x-ray, which showed lung infiltrates. He had a CT scan of the chest done, which shows large right pleural effusion and left upper lobe lung density, possible infiltrate. His WBC count is 27.4, hemoglobin 10.9, hematocrit 32.6, MCV 86, platelet count 434. His sodium 142, potassium 3.1, chloride 108, CO2 of 25, BUN 12, creatinine 0.62. Blood gas; pH 7.42, pCO2 of 38, pO2 of 82, bicarbonate 24 on 4 liters nasal cannula. His Legionella and pneumococcal antigens are negative. Blood culture so far is negative. He had a large right pleural effusion. He underwent CT-guided chest tube placement. One liter of the fluid is drained and feels significantly better. PAST MEDICAL HISTORY: Unremarkable. MEDICATIONS: He is currently taking Solu-Medrol 40 mg twice a day, vancomycin IV, hydralazine 10 mg p.r.n., albuterol/Atrovent nebulizer treatment, Zithromax 500 mg a day, Lovenox 40 mg a day, potassium supplement, Zosyn IV. ALLERGIES: NO KNOWN DRUG ALLERGIES. SOCIAL HISTORY: He is . No history of smoking, drinks alcohol. He works for [employer]. FAMILY HISTORY: He has 3 children. REVIEW OF SYSTEMS: As per his , normally, he is up around and active. Weight is stable. No DVT, pulmonary embolism. PHYSICAL EXAMINATION: GENERAL: Well-developed, well-nourished, mild short of breath, not in any acute distress. VITAL SIGNS: Blood pressure 179/86, heart rate 91, respiration 18, temperature 97. HEENT: Pupils are equal and reactive to light. Oral mucosa and nasal mucosa normal. NECK: Supple. JVP not raised. CHEST: He has rales on the right side. He has right chest tube in place, no air leak. CARDIOVASCULAR: S1, S2 normal. ABDOMEN: Benign. EXTREMITIES: No edema. IMPRESSION: 1. Pneumonia. 2. Pleural effusion. 3. Left upper lobe infiltrate versus density. 4. Leukocytosis. PLAN: We will continue the chest tube to suction. Check pleural fluid studies. Continue antibiotics. Once he gets better, he will need a repeat CT scan of the chest in about 4-6 weeks. If the density still persists, then we will consider biopsy. Further treatment will depend on the course in the hospital. Thank you, Dr. Kwasi Kraft, for this consult. MD KRISH Orosco/SB , 03:33 PM , 04:41 PM MTDD
[2017-08-21] VITALS (13 sets, daily range): BP systolic 124–183; BP diastolic 70–99; PULSE 70–108; RESP 18–22; TEMP 98–98.6; O2SAT 98–100
[2017-08-21] MEDS: RESP: ALBUTEROL 2.5 MG/IPRATROPIUM 0.5 MG NEB (SCH) NEB ×5 (00:27→20:22)
[2017-08-21] MEDS: PIPERACIL-TAZO 4.5 GM PREMIX 100 ML IV SCH ×4 (03:05→22:19)
[2017-08-21] MEDS: VANCOMYCIN 1,500 MG/NS 500 ML IV SCH ×6 (03:05→23:10)
[2017-08-21] MEDS ORDERED: PHARMACY ORDERED LAB ONE ×2 (03:45→11:45)
[2017-08-21 08:07] LABS: HEMATOCRIT 33.8 % (39.0-51.0); HEMOGLOBIN 11.2 GM/DL (13.0-17.0); MEAN CORPUSCULAR HEMOGLOBIN 29.2 PG (27.0-34.0); MEAN CORPUSCULAR HGB CONC 33.2 % (32.0-36.0); MEAN PLATELET VOLUME 7.8 FL (7.0-11.0); PLATELET COUNT 436 TH/MM3 (150-450); RED BLOOD COUNT 3.84 MIL/MM3 (4.50-5.90); RED CELL DISTRIBUTION WIDTH 17.8 % (11.6-17.2); WHITE BLOOD COUNT 20.7 TH/MM3 (4.0-11.0)
[2017-08-21] MEDS: methylPREDNISolone SOD SUCC 40 MG/1 ML VIAL IV PUSH SCH ×2 (08:09→19:56)
[2017-08-21] MEDS: ENOXAPARIN SODIUM 40 MG/0.4 ML SYRINGE SQ SCH (08:09)
[2017-08-21] MEDS: SODIUM CHLORIDE 0.9% FLUSH 10 ML FLUSH IV FLUSH SCH ×2 (08:10→19:56)
[2017-08-21 08:11] LABS: BICARBONATE 23.5 MEQ/L (21.0-32.0); CALCIUM 7.5 MG/DL (8.5-10.1); CREATININE 0.6 MG/DL (0.60-1.30); MAGNESIUM 2.5 MG/DL (1.5-2.5)
[2017-08-21] MEDS: POTASSIUM CHLORIDE 25 MEQ EFFERVESCENT TAB PO PRN (09:23)
--- NOTE | 2017-08-21 12:20 | HHI.IDPN ---
Subjective Subjective Remarks no fever remains on NC O2 2 L sp thoracenthesis, fluid is exsudative, Gstain negative 1700 WBC with neutrophils in 90ies Antibiotics azithro vancomycin zosyn Allergies: Coded Allergies: No Known Allergies (Unverified Allergy, Unknown, 08/15/17) Objective . Vital Signs Date Time Temp Pulse Resp B/P (MAP) Pulse Ox O2 Delivery O2 Flow Rate FiO2 08/21/17 10:00 72 08/21/17 08:00 98.4 71 180/93 (122) 100 08/21/17 08:00 71 08/21/17 07:00 100 Nasal Cannula 2.00 08/21/17 06:00 72 08/21/17 04:00 98.3 82 18 158/88 (111) 100 08/21/17 04:00 82 08/21/17 02:00 108 08/21/17 00:00 98.0 79 22 164/92 (116) 100 08/21/17 00:00 79 08/20/17 22:00 87 08/20/17 20:18 100 Nasal Cannula 2.00 08/20/17 20:00 98.0 89 22 167/98 (121) 100 08/20/17 20:00 89 08/20/17 19:00 98 Nasal Cannula 2.00 08/20/17 18:00 88 08/20/17 16:00 98.2 76 164/86 (112) 100 08/20/17 16:00 76 08/20/17 15:42 79 20 164/86 (112) 99 08/20/17 15:00 98.1 79 20 164/86 (112) 100 08/20/17 14:13 79 08/20/17 12:20 91 08/20/17 12:20 91 179/86 (117) 97 . Laboratory Tests Test 08/20/17 12:12 08/21/17 05:37 White Blood Count 27.4 TH/MM3 20.7 TH/MM3 Red Blood Count 3.76 MIL/MM3 3.84 MIL/MM3 Hemoglobin 10.9 GM/DL 11.2 GM/DL Hematocrit 32.6 % 33.8 % Mean Corpuscular Volume 86.6 FL 88.0 FL Mean Corpuscular Hemoglobin 28.9 PG 29.2 PG Mean Corpuscular Hemoglobin Concent 33.4 % 33.2 % Red Cell Distribution Width 17.3 % 17.8 % Platelet Count 434 TH/MM3 436 TH/MM3 Mean Platelet Volume 7.5 FL 7.8 FL Neutrophils (%) (Auto) 90.6 % Lymphocytes (%) (Auto) 4.8 % Monocytes (%) (Auto) 4.4 % Eosinophils (%) (Auto) 0.0 % Basophils (%) (Auto) 0.2 % Neutrophils # (Auto) 24.8 TH/MM3 Lymphocytes # (Auto) 1.3 TH/MM3 Monocytes # (Auto) 1.2 TH/MM3 Eosinophils # (Auto) 0.0 TH/MM3 Basophils # (Auto) 0.0 TH/MM3 CBC Comment AUTO DIFF Differential Total Cells Counted 100 Neutrophils % (Manual) 79 % Band Neutrophils % 11 % Lymphocytes % 5 % Monocytes % 5 % Neutrophils # (Manual) 24.7 TH/MM3 Nucleated Red Blood Cells 1 /100 WBC Differential Comment FINAL DIFF MANUAL Toxic Granulation 1+ Platelet Estimate NORMAL Platelet Morphology Comment NORMAL Laboratory Tests Test 08/19/17 17:09 08/20/17 12:12 08/21/17 05:37 Potassium Level 3.6 MEQ/L 3.1 MEQ/L 3.5 MEQ/L Blood Urea Nitrogen 12 MG/DL 12 MG/DL Creatinine 0.62 MG/DL 0.60 MG/DL Random Glucose 112 MG/DL 90 MG/DL Total Protein 7.0 GM/DL Albumin 1.7 GM/DL Calcium Level 7.9 MG/DL 7.5 MG/DL Alkaline Phosphatase 146 U/L Aspartate Amino Transf (AST/SGOT) 46 U/L Alanine Aminotransferase (ALT/SGPT) 59 U/L Total Bilirubin 0.4 MG/DL Sodium Level 142 MEQ/L 142 MEQ/L Chloride Level 108 MEQ/L 111 MEQ/L Carbon Dioxide Level 25.6 MEQ/L 23.5 MEQ/L Anion Gap 8 MEQ/L 8 MEQ/L Estimat Glomerular Filtration Rate 134 ML/MIN 139 ML/MIN Magnesium Level 2.5 MG/DL Microbiology Date/Time Source Procedure Growth Status 08/20/17 13:15 Fluid Pleural Fluid Fungal Smear Pending Received 08/20/17 13:15 Fluid Pleural Fluid Fungal Culture Pending Received 08/20/17 13:15 Fluid Pleural Fluid Acid Fast Stain Pending Received 08/20/17 13:15 Fluid Pleural Fluid Mycobacterial Culture Pending Received 08/20/17 13:15 Fluid Pleural Fluid Gram Stain - Final Resulted 08/20/17 13:15 Fluid Pleural Fluid Body Fluid Culture Pending Resulted 08/19/17 22:00 Nasal Washing Influenza Types A,B Antigen (MARELY) - Final NEGATIVE FOR FLU A AND B ANTIGEN.... Complete Imaging Last Impressions Chest X-Ray 08/20/17 0000 Signed Impressions: Service Date/Time: Sunday, August 20, 2017 13:49 - CONCLUSION: 1. Marked improvement in the previously seen large right sided effusion post right-sided thoracostomy tube placement. No pneumothorax. 2. Persistent left-sided pleural effusion with a small residual right-sided effusion. 3. Cardiomegaly with some interstitial prominence possibly representing some degree of vascular congestion or volume overload. Darrick Cunha MD Chest Tube Insertion 08/20/17 0000 Signed Impressions: Service Date/Time: Sunday, August 20, 2017 12:54 - CONCLUSION: Uncomplicated CT-guided thoracentesis. 1000 cc of straw-colored fluid was immediately removed and sent to laboratory for analysis. Darrick Cunha MD Chest CT 08/19/17 0000 Signed Impressions: Service Date/Time: Saturday, August 19, 2017 22:21 - CONCLUSION: 1. Bibasilar consolidation. 2. Large right and small left pleural effusion. 3. Confluent density left upper lobe measures 3.7 cm. This is likely infectious or inflammatory. Nader Cisneros MD Chest Ultrasound 08/16/17 0000 Signed Impressions: Service Date/Time: Wednesday, August 16, 2017 20:34 - CONCLUSION: Right pleural effusion is too small for safe drainage. Peng Krishnan MD Physical Exam CONSTITUTIONAL/GENERAL: This is an adequately nourished patient, in no apparent distress. TUBES/LINES/DRAINS: SKIN: No jaundice, rashes, or lesions. Skin temperature appropriate. Not diaphoretic. NECK: Trachea midline. Supple, nontender. No palpable thyroid enlargement or nodularity. CARDIOVASCULAR: Regular rate and rhythm without murmurs, gallops, or rubs. No JVD. Peripheral pulses symmetric. RESPIRATORY/CHEST: Symmetric, unlabored respirations. Clear to auscultation. Breath decreased R base. No wheezes, rales, or rhonchi. CT in place R side with fairly clear serous drainage GASTROINTESTINAL: Abdomen soft, non-tender, nondistended. No hepato-splenomegaly , or palpable masses. No guarding. Bowel sounds present. GENITOURINARY: Without palpable bladder distension. MUSCULOSKELETAL: Extremities without clubbing, cyanosis, or edema. No joint tenderness or effusion noted. No calf tenderness. No mottling or clubbing. LYMPHATICS: No palpable cervical or supraclavicular adenopathy. NEUROLOGICAL: Awake and alert. Motor and sensory grossly within normal limits. Follows commands. Clear speech. Moves all extremities. PSYCHIATRIC: calm cooperative Assessment & Plan Remarks PNA ( b/l infiltrates, feverr, pleuritic chest pain and marked leukocytosis) - unable to espectorate - worsening CXR - requiring more NC O2 Worsening R side infilatreate and effusion: sp CT placement - exsudative 2 D echo with nl LVSF fu pleu fluid clx chk resp pathogens panel cont current abx r Celina Eastman MD Aug 21, 2017 12:20
--- NOTE | 2017-08-21 12:36 | HHI.PR ---
Subjective Remarks The patient said he was feeling better today his family was at the bedside. He denied any pain. He appeared comfortable. Discussed with nursing. Objective Vitals Vital Signs Date Time Temp Pulse Resp B/P (MAP) Pulse Ox O2 Delivery O2 Flow Rate FiO2 08/21/17 10:00 72 08/21/17 08:00 98.4 71 180/93 (122) 100 08/21/17 08:00 71 08/21/17 07:00 100 Nasal Cannula 2.00 08/21/17 06:00 72 08/21/17 04:00 98.3 82 18 158/88 (111) 100 08/21/17 04:00 82 08/21/17 02:00 108 08/21/17 00:00 98.0 79 22 164/92 (116) 100 08/21/17 00:00 79 08/20/17 22:00 87 08/20/17 20:18 100 Nasal Cannula 2.00 08/20/17 20:00 98.0 89 22 167/98 (121) 100 08/20/17 20:00 89 08/20/17 19:00 98 Nasal Cannula 2.00 08/20/17 18:00 88 08/20/17 16:00 98.2 76 164/86 (112) 100 08/20/17 16:00 76 08/20/17 15:42 79 20 164/86 (112) 99 08/20/17 15:00 98.1 79 20 164/86 (112) 100 08/20/17 14:13 79 I/O 08/20/17 08/20/17 08/20/17 08/21/17 08/21/17 08/21/17 07:00 15:00 23:00 07:00 15:00 23:00 Intake Total 1190 ml 100 ml 2334 ml 1440 ml Output Total 1600 ml 850 ml 1170 ml Balance -410 ml 100 ml 1484 ml 270 ml Intake Oral 240 ml 1200 ml 240 ml IV Total 950 ml 100 ml 1134 ml 1200 ml Output Urine Total 1600 ml 850 ml 1000 ml Chest Tube Drainage Total 170 ml # Voids 3 # Bowel Movements 1 2 1 Result Diagram: 08/21/17 0537 08/21/17 0537 Imaging Last Impressions Chest X-Ray 08/20/17 0000 Signed Impressions: Service Date/Time: Sunday, August 20, 2017 13:49 - CONCLUSION: 1. Marked improvement in the previously seen large right sided effusion post right-sided thoracostomy tube placement. No pneumothorax. 2. Persistent left-sided pleural effusion with a small residual right-sided effusion. 3. Cardiomegaly with some interstitial prominence possibly representing some degree of vascular congestion or volume overload. Darrick Cunha MD Chest Tube Insertion 08/20/17 0000 Signed Impressions: Service Date/Time: Sunday, August 20, 2017 12:54 - CONCLUSION: Uncomplicated CT-guided thoracentesis. 1000 cc of straw-colored fluid was immediately removed and sent to laboratory for analysis. Darrick Cunha MD Chest CT 08/19/17 0000 Signed Impressions: Service Date/Time: Saturday, August 19, 2017 22:21 - CONCLUSION: 1. Bibasilar consolidation. 2. Large right and small left pleural effusion. 3. Confluent density left upper lobe measures 3.7 cm. This is likely infectious or inflammatory. Nader Cisneros MD Chest Ultrasound 08/16/17 0000 Signed Impressions: Service Date/Time: Wednesday, August 16, 2017 20:34 - CONCLUSION: Right pleural effusion is too small for safe drainage. Peng Krishnan MD Objective Remarks GENERAL: Well-nourished, well-developed patient. SKIN: Warm and dry. HEAD: Normocephalic. EYES: No scleral icterus. No injection or drainage. NECK: Supple, trachea midline. No JVD or lymphadenopathy. CARDIOVASCULAR: Regular rate and rhythm without murmurs, gallops, or rubs. RESPIRATORY: Breath sounds equal bilaterally. Few scattered wheezing. GASTROINTESTINAL: Abdomen soft, non-tender, nondistended. MUSCULOSKELETAL: Chest tube on right anterior chest. No cyanosis, or edema. BACK: Nontender without obvious deformity. NEURO: No focal deficits Procedures Chest tube placement 08/20 Medications and IVs Current Medications Medications (Trade) Dose Ordered Sig/Santo Route Start Time Stop Time Status Last Admin (NS Flush) 2 ml UNSCH PRN IV FLUSH 08/15/17 17:00 (NS Flush) 2 ml BID IV FLUSH 08/15/17 21:00 08/21/17 08:10 (Narcan Inj) 0.4 mg UNSCH PRN IV PUSH 08/15/17 17:00 (Romazicon Inj) 0.2 mg Q1M PRN IV PUSH 08/15/17 20:15 (Ativan) 1 mg Q4H PRN PO 08/15/17 20:15 (Ativan Inj) 1 mg Q4H PRN IV PUSH 08/15/17 20:15 08/17/17 17:58 (Ativan) 2 mg Q2H PRN PO 08/15/17 20:15 (Ativan Inj) 2 mg Q2H PRN IV PUSH 08/15/17 20:15 08/20/17 13:55 (Ativan Inj) 2 mg Q1H PRN IV PUSH 08/15/17 20:15 (Ativan Inj) 2 mg Q15M PRN IV PUSH 08/15/17 20:15 (Lovenox Inj) 40 mg Q24H SQ 08/16/17 09:00 08/21/17 08:09 Piperacillin Sod/ Tazobactam Sod 100 ml @ 200 mls/hr Q6H IV 08/15/17 22:00 08/21/17 08:10 Azithromycin 500 mg/Sodium Chloride 250 ml @ 250 mls/hr Q24H IV 08/16/17 16:00 08/20/17 16:08 Miscellaneous Information Patient in critical care unit? Ass... [id number] .XX 08/15/17 21:45 08/15/17 21:45 Pharmacy Profile Note 0 ml @ 0 mls/hr UNSCH OTHER 08/16/17 08:00 Potassium Chloride 100 ml @ 50 mls/hr Q2H PRN IV 08/16/17 08:30 Potassium Chloride 100 ml @ 50 mls/hr Q2H PRN IV 08/16/17 08:30 08/20/17 22:13 (K-Lyte Cl Eff) 50 meq UNSCH PRN PO 08/16/17 08:30 08/21/17 09:23 Potassium Chloride 100 ml @ 25 mls/hr UNSCH PRN IV 08/16/17 08:30 Potassium Chloride 100 ml @ 50 mls/hr Q2H PRN IV 08/16/17 08:30 Magnesium Sulfate 4 gm/Sodium Chloride 100 ml @ 50 mls/hr UNSCH PRN IV 08/16/17 08:30 (Mag-Ox) 800 mg UNSCH PRN PO 08/16/17 08:30 Magnesium Sulfate 2 gm/Sodium Chloride 100 ml @ 50 mls/hr UNSCH PRN IV 08/16/17 08:30 (K-Phos) 2,000 mg Q4H PRN PO 08/16/17 08:30 Sodium Phosphate 30 mmol/Sodium Chloride 250 ml @ 42 mls/hr UNSCH PRN IV 08/16/17 08:30 08/17/17 05:36 (K-Phos) 2,000 mg UNSCH PRN PO/TUBE 08/16/17 08:30 Potassium Phosphate 30 mmol/ Sodium Chloride 260 ml @ 42 mls/hr UNSCH PRN IV 08/16/17 08:30 (Tylenol) 650 mg Q4H PRN PO 08/16/17 21:30 08/16/17 21:34 (Duoneb Neb) 1 ampule Q2HR NEB PRN NEB 08/17/17 10:15 (Duoneb Neb) 1 ampule Q4HR NEB NEB 08/18/17 12:00 08/21/17 09:28 Vancomycin HCl 1500 mg/Sodium Chloride 515 ml @ 257.5 mls/ hr Q8H IV 08/19/17 20:00 Future Hold 08/21/17 03:05 (Trandate Inj) 10 mg Q2H PRN IV PUSH 08/19/17 16:30 08/20/17 01:07 (Apresoline Inj) 10 mg Q30M PRN IV PUSH 08/20/17 01:30 08/20/17 20:12 (SoluMEDROL INJ) 40 mg BID IV PUSH 08/20/17 21:00 08/21/17 08:09 A/P Assessment and Plan CAP 08/16 CT [id number] right pleural effusions however ultrasound quantification revealed only 90 cc no thoracentesis indicated. 08/19 CT: Bibasilar consolidation; Large right and small left pleural effusion; Confluent density left upper lobe measures 3.7 cm; This is likely infectious or inflammatory. ID consult appreciated. 2D echo-EF 50-55%, mild MVR, moderate TR. Appreciate pulmonology consult. S/p CT guided thoracentesis (exudate) and chest tube placement by IR 08/20. - Continue with oxygen keep sats >92%. - Bronchodilators. - wean Solumedrol to 40 mg IV BID. - Incentive spirometry while awake. - pulmonology following. - follow cultures from thoracentesis. - vancomycin, azithromycin and Zosyn per ID. - PT. Anemia Hemoglobin is stable. - follow CBC and transfuse as needed. Alcohol abuse The pt drinks 3-4 beers daily. - Watch for signs of DT's. On CIWA protocol. - Continue with Thiamine/MVI/Folic acid. Hypokalemia Possibly s/t above. - replete and monitor. PPx: Lovenox Discharge Planning Keep in ICU for now Kwasi Kraft DO Aug 21, 2017 12:36
[2017-08-21] MEDS: AZITHROMYCIN INJ 500 MG in SODIUM CHLOR 0.9% 250 ML INJ 250 ML IV SCH (17:29)
--- NOTE | 2017-08-21 17:48 | HHI.PR ---
Subjective Remarks 57 YO male with Lung infilt,CHRISTINE density, pl eff Right chest tube draining Pl fluid exudate No Fever Objective Vital Signs Vital Signs Date Time Temp Pulse Resp B/P (MAP) Pulse Ox O2 Delivery O2 Flow Rate FiO2 08/21/17 14:00 76 08/21/17 12:00 80 08/21/17 12:00 98.6 80 124/70 (88) 98 08/21/17 10:00 72 08/21/17 08:00 98.4 71 180/93 (122) 100 08/21/17 08:00 71 08/21/17 07:00 100 Nasal Cannula 2.00 08/21/17 06:00 72 08/21/17 04:00 98.3 82 18 158/88 (111) 100 08/21/17 04:00 82 08/21/17 02:00 108 08/21/17 00:00 98.0 79 22 164/92 (116) 100 08/21/17 00:00 79 08/20/17 22:00 87 08/20/17 20:18 100 Nasal Cannula 2.00 08/20/17 20:00 98.0 89 22 167/98 (121) 100 08/20/17 20:00 89 08/20/17 19:00 98 Nasal Cannula 2.00 08/20/17 18:00 88 I/O 08/20/17 08/20/17 08/20/17 08/21/17 08/21/17 08/21/17 07:00 15:00 23:00 07:00 15:00 23:00 Intake Total 1190 ml 100 ml 2334 ml 1440 ml 100 ml Output Total 1600 ml 850 ml 1170 ml Balance -410 ml 100 ml 1484 ml 270 ml 100 ml Intake Oral 240 ml 1200 ml 240 ml IV Total 950 ml 100 ml 1134 ml 1200 ml 100 ml Output Urine Total 1600 ml 850 ml 1000 ml Chest Tube Drainage Total 170 ml # Voids 3 # Bowel Movements 1 2 1 Result Diagram: 08/21/1737 08/21/17 0537 Objective Remarks GENERAL: WBWN male,NAD SKIN: Warm and dry. HEAD: Normocephalic. EYES: No scleral icterus. No injection or drainage. NECK: Supple, trachea midline. No JVD or lymphadenopathy. CARDIOVASCULAR: Regular rate and rhythm without murmurs, gallops, or rubs. RESPIRATORY: Breath sounds equal bilaterally. No accessory muscle use. Right chest tube draining GASTROINTESTINAL: Abdomen soft, non-tender, nondistended. MUSCULOSKELETAL: No cyanosis, or edema. BACK: Nontender without obvious deformity. No CVA tenderness. A/P Assessment and Plan IMPRESSION: 1. Pneumonia. 2. Pleural effusion. 3. Left upper lobe infiltrate versus density. 4. Leukocytosis. PLAN: Chest tube to suction Cont Abx Supplement [address] fluid results DW pt and his at Obed Slaughter MD Aug 21, 2017 17:48
[2017-08-22] VITALS (14 sets, daily range): BP systolic 114–220; BP diastolic 67–115; PULSE 64–80; TEMP 97.6–98.4; O2SAT 100
[2017-08-22] MEDS: LABETALOL HCL 100 MG/20 ML VIAL IV PUSH PRN ×3 (00:11→08:17)
[2017-08-22] MEDS: RESP: ALBUTEROL 2.5 MG/IPRATROPIUM 0.5 MG NEB (SCH) NEB ×3 (00:22→09:17)
[2017-08-22] MEDS: PIPERACIL-TAZO 4.5 GM PREMIX 100 ML IV SCH ×4 (04:06→20:56)
[2017-08-22 06:15] LABS: HEMOGLOBIN 11.7 GM/DL (13.0-17.0); MEAN CELL VOLUME 86.7 FL (80.0-100.0); MEAN CORPUSCULAR HEMOGLOBIN 29.8 PG (27.0-34.0); MEAN CORPUSCULAR HGB CONC 34.4 % (32.0-36.0); MEAN PLATELET VOLUME 7.8 FL (7.0-11.0); PLATELET COUNT 482 TH/MM3 (150-450); RED BLOOD COUNT 3.92 MIL/MM3 (4.50-5.90); RED CELL DISTRIBUTION WIDTH 17.7 % (11.6-17.2); WHITE BLOOD COUNT 16.6 TH/MM3 (4.0-11.0)
[2017-08-22 06:40] LABS: BICARBONATE 20.6 MEQ/L (21.0-32.0); CALCIUM 7.6 MG/DL (8.5-10.1); CREATININE 0.7 MG/DL (0.60-1.30); MAGNESIUM 2.4 MG/DL (1.5-2.5)
[2017-08-22] MEDS: VANCOMYCIN 1,500 MG/NS 500 ML IV SCH ×4 (06:46→15:15)
[2017-08-22] MEDS: SODIUM CHLORIDE 0.9% FLUSH 10 ML FLUSH IV FLUSH SCH ×2 (08:18→20:56)
[2017-08-22] MEDS: ENOXAPARIN SODIUM 40 MG/0.4 ML SYRINGE SQ SCH (08:18)
[2017-08-22] MEDS: methylPREDNISolone SOD SUCC 40 MG/1 ML VIAL IV PUSH SCH ×2 (08:18→20:55)
[2017-08-22] MEDS: hydrALAZINE HCL 20 MG/ML VIAL IV PUSH PRN (11:03)
--- NOTE | 2017-08-22 12:26 | HHI.PR ---
Subjective Remarks Follow-up pneumonia/right-sided pleural effusion status post chest tube placement August 22, 2017-patient seen and examined, denies any significant shortness of breath. Currently afebrile. by the bedside Objective Vitals Vital Signs Date Time Temp Pulse Resp B/P (MAP) Pulse Ox O2 Delivery O2 Flow Rate FiO2 08/22/17 09:17 100 Nasal Cannula 08/22/17 06:00 74 08/22/17 04:00 97.9 64 173/94 (120) 100 08/22/17 04:00 64 08/22/17 02:00 65 08/22/17 00:00 64 08/22/17 00:00 97.6 64 209/112 (144) 100 08/21/17 22:00 85 08/21/17 20:22 100 Nasal Cannula 2.00 08/21/17 20:00 98.2 74 163/90 (114) 99 08/21/17 20:00 74 08/21/17 19:00 100 Room Air 08/21/17 18:00 73 08/21/17 16:00 70 08/21/17 16:00 98.0 70 183/99 (127) 100 08/21/17 14:00 76 I/O 08/21/17 08/21/17 08/21/17 08/22/17 08/22/17 08/22/17 07:00 15:00 23:00 07:00 15:00 23:00 Intake Total 1440 ml 100 ml 965 ml 615 ml Output Total 1170 ml 100 ml 2475 ml Balance 270 ml 100 ml 865 ml -1860 ml Intake Oral 240 ml 100 ml IV Total 1200 ml 100 ml 965 ml 515 ml Output Urine Total 1000 ml 2450 ml Chest Tube Drainage Total 170 ml 100 ml 25 ml # Voids 3 # Bowel Movements 1 0 0 Result Diagram: 08/22/17 0439 08/22/17 0439 Imaging Last Impressions Chest X-Ray 08/20/17 0000 Signed Impressions: Service Date/Time: Sunday, August 20, 2017 13:49 - CONCLUSION: 1. Marked improvement in the previously seen large right sided effusion post right-sided thoracostomy tube placement. No pneumothorax. 2. Persistent left-sided pleural effusion with a small residual right-sided effusion. 3. Cardiomegaly with some interstitial prominence possibly representing some degree of vascular congestion or volume overload. Darrick Cunha MD Chest Tube Insertion 08/20/17 0000 Signed Impressions: Service Date/Time: Sunday, August 20, 2017 12:54 - CONCLUSION: Uncomplicated CT-guided thoracentesis. 1000 cc of straw-colored fluid was immediately removed and sent to laboratory for analysis. Darrick Cunha MD Chest CT 08/19/17 0000 Signed Impressions: Service Date/Time: Saturday, August 19, 2017 22:21 - CONCLUSION: 1. Bibasilar consolidation. 2. Large right and small left pleural effusion. 3. Confluent density left upper lobe measures 3.7 cm. This is likely infectious or inflammatory. Nader Cisneros MD Chest Ultrasound 08/16/17 0000 Signed Impressions: Service Date/Time: Wednesday, August 16, 2017 20:34 - CONCLUSION: Right pleural effusion is too small for safe drainage. Peng Krishnan MD Objective Remarks GENERAL: NAD SKIN: Warm and dry. HEAD: Normocephalic. EYES: No scleral icterus. No injection or drainage. NECK: Supple, trachea midline. No JVD or lymphadenopathy. CARDIOVASCULAR: Regular rate and rhythm without murmurs, gallops, or rubs. RESPIRATORY: Breath sounds equal bilaterally. No accessory muscle use.Right Chest tube in place GASTROINTESTINAL: Abdomen soft, non-tender, nondistended. MUSCULOSKELETAL: No cyanosis, or edema. BACK: Nontender without obvious deformity. No CVA tenderness. Procedures Chest tube placement 08/20 A/P Problem List: (1) Sepsis ICD Code: A41.9 - Sepsis, unspecified organism Status: Acute (2) Pneumonia ICD Code: J18.9 - Pneumonia, unspecified organism Status: Acute (3) Pleural effusion on right ICD Code: J90 - Pleural effusion, not elsewhere classified Assessment and Plan 57 years old man with CAP 08/16 CT [id number] right pleural effusions however ultrasound quantification revealed only 90 cc no thoracentesis indicated. 08/19 CT: Bibasilar consolidation; Large right and small left pleural effusion; Confluent density left upper lobe measures 3.7 cm; This is likely infectious or inflammatory. ID consult appreciated. 2D echo-EF 50-55%, mild MVR, moderate TR. Appreciate pulmonology consult. S/p CT guided thoracentesis (exudate) and chest tube placement by IR 08/20. - Continue with oxygen keep sats >92%. - Bronchodilators. - On Solu medrol 40 mg IV BID. - Incentive spirometry while awake. - pulmonology following. - follow cultures from thoracentesis. -Continue vancomycin, azithromycin and Zosyn per ID. - PT. Anemia Hemoglobin is stable. - follow CBC and transfuse as needed. Alcohol abuse - Watch for signs of DT's. On CIWA protocol. - Continue with Thiamine/MVI/Folic acid. Hypokalemia -Replace electrolytes and monitor PPx: Lovenox Problem Qualifiers (1) Sepsis: Qualified Codes: A41.9 - Sepsis, unspecified organism (2) Pneumonia: Qualified Codes: J18.1 - Lobar pneumonia, unspecified organism Nader Jiménez MD August 22, 2017 12:26
[2017-08-22 13:50] LABS: AMYLASE BODY FLUID 17 U/L; AMYLASE BODY FLUID TYPE PLEURAL
[2017-08-22] MEDS: AZITHROMYCIN INJ 500 MG in SODIUM CHLOR 0.9% 250 ML INJ 250 ML IV SCH (16:55)
--- NOTE | 2017-08-22 17:42 | HHI.IDPN ---
Subjective Subjective Remarks no fever on RA sp thoracenthesis, fluid is exsudative, Gstain negative clx fro pleural fluid NGTD cytology: neutrophils Antibiotics azithro vancomycin zosyn Allergies: Coded Allergies: No Known Allergies (Unverified Allergy, Unknown, 08/15/17) Objective . Vital Signs Date Time Temp Pulse Resp B/P (MAP) Pulse Ox O2 Delivery O2 Flow Rate FiO2 08/22/17 09:17 100 Nasal Cannula 08/22/17 07:00 100 Nasal Cannula 2.00 08/22/17 06:00 74 08/22/17 04:00 97.9 64 173/94 (120) 100 08/22/17 04:00 64 08/22/17 02:00 65 08/22/17 00:00 64 08/22/17 00:00 97.6 64 209/112 (144) 100 08/21/17 22:00 85 08/21/17 20:22 100 Nasal Cannula 2.00 08/21/17 20:00 98.2 74 163/90 (114) 99 08/21/17 20:00 74 08/21/17 19:00 100 Room Air 08/21/17 18:00 73 . Laboratory Tests Test 08/21/17 05:37 08/22/17 04:39 White Blood Count 20.7 TH/MM3 16.6 TH/MM3 Red Blood Count 3.84 MIL/MM3 3.92 MIL/MM3 Hemoglobin 11.2 GM/DL 11.7 GM/DL Hematocrit 33.8 % 34.0 % Mean Corpuscular Volume 88.0 FL 86.7 FL Mean Corpuscular Hemoglobin 29.2 PG 29.8 PG Mean Corpuscular Hemoglobin Concent 33.2 % 34.4 % Red Cell Distribution Width 17.8 % 17.7 % Platelet Count 436 TH/MM3 482 TH/MM3 Mean Platelet Volume 7.8 FL 7.8 FL Laboratory Tests Test 08/21/17 05:37 08/22/17 04:39 Blood Urea Nitrogen 12 MG/DL 11 MG/DL Creatinine 0.60 MG/DL 0.70 MG/DL Random Glucose 90 MG/DL 129 MG/DL Calcium Level 7.5 MG/DL 7.6 MG/DL Magnesium Level 2.5 MG/DL 2.4 MG/DL Sodium Level 142 MEQ/L 137 MEQ/L Potassium Level 3.5 MEQ/L 3.7 MEQ/L Chloride Level 111 MEQ/L 107 MEQ/L Carbon Dioxide Level 23.5 MEQ/L 20.6 MEQ/L Anion Gap 8 MEQ/L 9 MEQ/L Estimat Glomerular Filtration Rate 139 ML/MIN 117 ML/MIN Microbiology Date/Time Source Procedure Growth Status 08/20/17 13:15 Fluid Pleural Fluid Fungal Smear Pending Received 08/20/17 13:15 Fluid Pleural Fluid Fungal Culture Pending Received 08/20/17 13:15 Fluid Pleural Fluid Acid Fast Stain - Final NO ACID FAST BACILLI SEEN Resulted 08/20/17 13:15 Fluid Pleural Fluid Mycobacterial Culture Pending Resulted 08/20/17 13:15 Fluid Pleural Fluid Gram Stain - Final Resulted 08/20/17 13:15 Fluid Pleural Fluid Body Fluid Culture - Preliminary NO GROWTH IN 48 HOURS. Resulted 08/19/17 22:00 Nasal Washing Influenza Types A,B Antigen (MARELY) - Final NEGATIVE FOR FLU A AND B ANTIGEN.... Complete Imaging Last Impressions Chest X-Ray 08/20/17 0000 Signed Impressions: Service Date/Time: Sunday, August 20, 2017 13:49 - CONCLUSION: 1. Marked improvement in the previously seen large right sided effusion post right-sided thoracostomy tube placement. No pneumothorax. 2. Persistent left-sided pleural effusion with a small residual right-sided effusion. 3. Cardiomegaly with some interstitial prominence possibly representing some degree of vascular congestion or volume overload. Darrick Cunha MD Chest Tube Insertion 08/20/17 0000 Signed Impressions: Service Date/Time: Sunday, August 20, 2017 12:54 - CONCLUSION: Uncomplicated CT-guided thoracentesis. 1000 cc of straw-colored fluid was immediately removed and sent to laboratory for analysis. Darrick Cunha MD Chest CT 08/19/17 0000 Signed Impressions: Service Date/Time: Saturday, August 19, 2017 22:21 - CONCLUSION: 1. Bibasilar consolidation. 2. Large right and small left pleural effusion. 3. Confluent density left upper lobe measures 3.7 cm. This is likely infectious or inflammatory. Nader Cisneros MD Chest Ultrasound 08/16/17 0000 Signed Impressions: Service Date/Time: Wednesday, August 16, 2017 20:34 - CONCLUSION: Right pleural effusion is too small for safe drainage. Peng Krishnan MD Physical Exam CONSTITUTIONAL/GENERAL: This is an adequately nourished patient, in no apparent distress. TUBES/LINES/DRAINS: SKIN: No jaundice, rashes, or lesions. Skin temperature appropriate. Not diaphoretic. NECK: Trachea midline. Supple, nontender. No palpable thyroid enlargement or nodularity. CARDIOVASCULAR: Regular rate and rhythm without murmurs, gallops, or rubs. No JVD. Peripheral pulses symmetric. RESPIRATORY/CHEST: Symmetric, unlabored respirations. Clear to auscultation. Breath decreased R base. No wheezes, rales, or rhonchi. CT in place R side with fairly clear serous drainage GASTROINTESTINAL: Abdomen soft, non-tender, nondistended. No hepato-splenomegaly , or palpable masses. No guarding. Bowel sounds present. GENITOURINARY: Without palpable bladder distension. MUSCULOSKELETAL: Extremities without clubbing, cyanosis, or edema. No joint tenderness or effusion noted. No calf tenderness. No mottling or clubbing. LYMPHATICS: No palpable cervical or supraclavicular adenopathy. NEUROLOGICAL: Awake and alert. Motor and sensory grossly within normal limits. Follows commands. Clear speech. Moves all extremities. PSYCHIATRIC: calm cooperative Assessment & Plan Remarks PNA, with parapneumonic effusion( b/l infiltrates, feverr, pleuritic chest pain and marked leukocytosis) - unable to espectorate - worsening CXR - requiring more NC O2 Worsening R side infilatreate and effusion: sp CT placement - exsudative - clx are negative 2 D echo with nl LVSF fu pleu fluid clx chk resp pathogens panel dc vancomycin cont zosyn. Celina Little MD August 22, 2017 17:42
--- NOTE | 2017-08-22 20:12 | HHI.PR ---
Subjective Remarks 57 YO male with Lung infilt,CHRISTINE density, pl eff Right chest tube draining Pl fluid exudate No Fever Weaned to [facility] Family at [facility] Objective Vital Signs Vital Signs Date Time Temp Pulse Resp B/P (MAP) Pulse Ox O2 Delivery O2 Flow Rate FiO2 08/22/17 18:00 68 08/22/17 16:00 68 08/22/17 16:00 98.1 68 121/75 (90) 100 08/22/17 14:00 80 08/22/17 12:00 98.4 72 114/67 (83) 100 08/22/17 12:00 72 08/22/17 10:00 67 08/22/17 09:17 100 Nasal Cannula 08/22/17 08:00 98.0 70 220/115 (150) 100 08/22/17 08:00 70 08/22/17 07:00 100 Nasal Cannula 2.00 08/22/17 06:00 74 08/22/17 04:00 97.9 64 173/94 (120) 100 08/22/17 04:00 64 08/22/17 02:00 65 08/22/17 00:00 64 08/22/17 00:00 97.6 64 209/112 (144) 100 08/21/17 22:00 85 08/21/17 20:22 100 Nasal Cannula 2.00 I/O 08/21/17 08/21/17 08/21/17 08/22/17 08/22/17 08/22/17 07:00 15:00 23:00 07:00 15:00 23:00 Intake Total 1440 ml 100 ml 965 ml 615 ml 375 ml Output Total 1170 ml 100 ml 2475 ml 1575 ml Balance 270 ml 100 ml 865 ml -1860 ml -1200 ml Intake Oral 240 ml 100 ml 375 ml IV Total 1200 ml 100 ml 965 ml 515 ml Output Urine Total 1000 ml 2450 ml 1525 ml Chest Tube Drainage Total 170 ml 100 ml 25 ml 50 ml # Voids 3 # Bowel Movements 1 0 0 0 Result Diagram: 08/22/179 08/22/17438 Objective Remarks GENERAL: WBWN male,NAD SKIN: Warm and dry. HEAD: Normocephalic. EYES: No scleral icterus. No injection or drainage. NECK: Supple, trachea midline. No JVD or lymphadenopathy. CARDIOVASCULAR: Regular rate and rhythm without murmurs, gallops, or rubs. RESPIRATORY: Breath sounds equal bilaterally. No accessory muscle use. Right chest tube draining GASTROINTESTINAL: Abdomen soft, non-tender, nondistended. MUSCULOSKELETAL: No cyanosis, or edema. BACK: Nontender without obvious deformity. No CVA tenderness. A/P Assessment and Plan IMPRESSION: 1. Pneumonia. 2. Pleural effusion., Parapneumonic 3. Left upper lobe infiltrate versus density. 4. Leukocytosis. PLAN: Chest tube to suction Cont Abx Check pl fluid results DW pt and his at [facility] Slaughter MD August 22, 2017 20:12
[2017-08-23] VITALS (10 sets, daily range): BP systolic 115–160; BP diastolic 73–96; PULSE 52–72; RESP 16–19; TEMP 97.8–99.3; O2SAT 94–100
[2017-08-23] MEDS: PIPERACIL-TAZO 4.5 GM PREMIX 100 ML IV SCH ×4 (05:00→21:20)
[2017-08-23] MEDS ORDERED: PHARMACY ORDERED LAB ONE (06:45)
[2017-08-23] MEDS: ENOXAPARIN SODIUM 40 MG/0.4 ML SYRINGE SQ SCH (08:48)
[2017-08-23] MEDS: methylPREDNISolone SOD SUCC 40 MG/1 ML VIAL IV PUSH SCH ×2 (08:49→21:20)
[2017-08-23] MEDS: SODIUM CHLORIDE 0.9% FLUSH 10 ML FLUSH IV FLUSH SCH ×2 (08:49→21:20)
--- NOTE | 2017-08-23 10:35 | HHI.PR ---
Subjective Remarks Follow-up pneumonia/right-sided pleural effusion status post chest tube placement August 22, 2017-patient seen and examined, denies any significant shortness of breath. Currently afebrile. by the bedside August 23, 2017-patient seen and examined, doing better today, no chest pain or significant SOB. Chest tube with 60 cc out over the past 8 hours. BP slightly up Objective Vitals Vital Signs Date Time Temp Pulse Resp B/P (MAP) Pulse Ox O2 Delivery O2 Flow Rate FiO2 08/23/17 08:00 52 08/23/17 08:00 98.0 52 160/96 (117) 100 08/23/17 07:00 100 Room Air 08/23/17 06:00 72 08/23/17 04:00 64 08/23/17 04:00 98.2 64 128/86 (100) 99 08/23/17 02:00 63 08/23/17 00:00 60 08/23/17 00:00 98.0 60 132/82 (99) 100 08/22/17 22:00 64 08/22/17 20:00 80 08/22/17 20:00 97.8 80 146/88 (107) 100 08/22/17 19:05 100 21 08/22/17 19:00 100 Room Air 08/22/17 18:00 68 08/22/17 16:00 68 08/22/17 16:00 98.1 68 121/75 (90) 100 08/22/17 14:00 80 08/22/17 12:00 98.4 72 114/67 (83) 100 08/22/17 12:00 72 I/O 08/22/17 08/22/17 08/22/17 08/23/17 08/23/17 08/23/17 07:00 15:00 23:00 07:00 15:00 23:00 Intake Total 615 ml 475 ml 220 ml Output Total 2475 ml 1575 ml 960 ml Balance -1860 ml -1100 ml -740 ml Intake Oral 100 ml 375 ml 120 ml IV Total 515 ml 100 ml 100 ml Output Urine Total 2450 ml 1525 ml 950 ml Chest Tube Drainage Total 25 ml 50 ml 10 ml # Bowel Movements 0 0 0 Result Diagram: 08/22/17 0439 08/22/17 0439 Imaging Last Impressions Chest X-Ray 08/20/17 0000 Signed Impressions: Service Date/Time: Sunday, August 20, 2017 13:49 - CONCLUSION: 1. Marked improvement in the previously seen large right sided effusion post right-sided thoracostomy tube placement. No pneumothorax. 2. Persistent left-sided pleural effusion with a small residual right-sided effusion. 3. Cardiomegaly with some interstitial prominence possibly representing some degree of vascular congestion or volume overload. Darrick Cunha MD Chest Tube Insertion 08/20/17 0000 Signed Impressions: Service Date/Time: Sunday, August 20, 2017 12:54 - CONCLUSION: Uncomplicated CT-guided thoracentesis. 1000 cc of straw-colored fluid was immediately removed and sent to laboratory for analysis. Darrick Cunha MD Chest CT 08/19/17 0000 Signed Impressions: Service Date/Time: Saturday, August 19, 2017 22:21 - CONCLUSION: 1. Bibasilar consolidation. 2. Large right and small left pleural effusion. 3. Confluent density left upper lobe measures 3.7 cm. This is likely infectious or inflammatory. Nader Cisneros MD Chest Ultrasound 08/16/17 0000 Signed Impressions: Service Date/Time: Wednesday, August 16, 2017 20:34 - CONCLUSION: Right pleural effusion is too small for safe drainage. Peng Krishnan MD Objective Remarks GENERAL: NAD SKIN: Warm and dry. HEAD: Normocephalic. EYES: No scleral icterus. No injection or drainage. NECK: Supple, trachea midline. No JVD or lymphadenopathy. CARDIOVASCULAR: Regular rate and rhythm without murmurs, gallops, or rubs. RESPIRATORY: Breath sounds equal bilaterally. No accessory muscle use.Right Chest tube in place GASTROINTESTINAL: Abdomen soft, non-tender, nondistended. MUSCULOSKELETAL: No cyanosis, or edema. BACK: Nontender without obvious deformity. No CVA tenderness. Procedures Chest tube placement 08/20 A/P Problem List: (1) Sepsis ICD Code: A41.9 - Sepsis, unspecified organism Status: Acute (2) Pneumonia ICD Code: J18.9 - Pneumonia, unspecified organism Status: Acute (3) Pleural effusion on right ICD Code: J90 - Pleural effusion, not elsewhere classified Assessment and Plan 57 years old man with CAP 08/16 CT [id number] right pleural effusions however ultrasound quantification revealed only 90 cc no thoracentesis indicated. 08/19 CT: Bibasilar consolidation; Large right and small left pleural effusion; Confluent density left upper lobe measures 3.7 cm; This is likely infectious or inflammatory. ID consult appreciated. 2D echo-EF 50-55%, mild MVR, moderate TR. Appreciate pulmonology consult. S/p CT guided thoracentesis (exudate) and chest tube placement by IR 08/20. - Continue with oxygen keep sats >92%. - Bronchodilators. - Decrease Solu Medrol to 20 mg IV BID. - Incentive spirometry while awake. - pulmonology following. - follow cultures from thoracentesis. -Continue azithromycin and Zosyn per ID. Vancomycin was d/kevin - PT. Anemia Hemoglobin is stable. - follow CBC and transfuse as needed. Alcohol abuse - Watch for signs of DT's. On CIWA protocol. - Continue with Thiamine/MVI/Folic acid. Hypertension Start Lopressor 25 mg twice daily Hypokalemia -Replace electrolytes and monitor PPx: Lovenox Transfer to [facility] Problem Qualifiers (1) Sepsis: Qualified Codes: A41.9 - Sepsis, unspecified organism (2) Pneumonia: Qualified Codes: J18.1 - Lobar pneumonia, unspecified organism Nader Jiménez MD August 23, 2017 10:35
[2017-08-23] MEDS: METOPROLOL TARTRATE 25 MG TAB PO SCH ×2 (11:58→21:20)
[2017-08-23] MEDS: AZITHROMYCIN INJ 500 MG in SODIUM CHLOR 0.9% 250 ML INJ 250 ML IV SCH (16:50)
--- NOTE | 2017-08-23 20:33 | HHI.PR ---
Subjective Remarks 57 YO male with Lung infilt,CHRISTINE density, pl eff Right chest tube draining Pl fluid exudate No Fever Weaned to [facility] Family at [facility] Breathing better Objective Vital Signs Vital Signs Date Time Temp Pulse Resp B/P (MAP) Pulse Ox O2 Delivery O2 Flow Rate FiO2 08/23/17 14:58 97.8 64 19 118/75 (89) 94 08/23/17 14:00 62 08/23/17 12:00 97.8 62 115/77 (90) 100 08/23/17 12:00 62 08/23/17 10:00 61 08/23/17 08:00 52 08/23/17 08:00 98.0 52 160/96 (117) 100 08/23/17 07:00 100 Room Air 08/23/17 06:00 72 08/23/17 04:00 64 08/23/17 04:00 98.2 64 128/86 (100) 99 08/23/17 02:00 63 08/23/17 00:00 60 08/23/17 00:00 98.0 60 132/82 (99) 100 08/22/17 22:00 64 I/O 08/22/17 08/22/17 08/22/17 08/23/17 08/23/17 08/23/17 07:00 15:00 23:00 07:00 15:00 23:00 Intake Total 615 ml 475 ml 220 ml Output Total 2475 ml 1575 ml 960 ml 875 ml Balance -1860 ml -1100 ml -740 ml -875 ml Intake Oral 100 ml 375 ml 120 ml IV Total 515 ml 100 ml 100 ml Output Urine Total 2450 ml 1525 ml 950 ml 875 ml Chest Tube Drainage Total 25 ml 50 ml 10 ml # Bowel Movements 0 0 0 0 Result Diagram: 08/22/17 0439 08/22/17 0439 Objective Remarks GENERAL: WBWN male,NAD SKIN: Warm and dry. HEAD: Normocephalic. EYES: No scleral icterus. No injection or drainage. NECK: Supple, trachea midline. No JVD or lymphadenopathy. CARDIOVASCULAR: Regular rate and rhythm without murmurs, gallops, or rubs. RESPIRATORY: Breath sounds equal bilaterally. No accessory muscle use. Right chest tube draining GASTROINTESTINAL: Abdomen soft, non-tender, nondistended. MUSCULOSKELETAL: No cyanosis, or edema. BACK: Nontender without obvious deformity. No CVA tenderness. A/P Assessment and Plan IMPRESSION: 1. Pneumonia. 2. Pleural effusion., Parapneumonic 3. Left upper lobe infiltrate versus density. 4. Leukocytosis. PLAN: Chest tube to suction Cont Abx Check pl fluid results DW pt and his at [facility] CXR in [facility] Slaughter MD August 23, 2017 20:33
[2017-08-24] VITALS (11 sets, daily range): BP systolic 99–133; BP diastolic 61–81; PULSE 56–71; RESP 18–20; TEMP 98.3–99.1; O2SAT 95–96
[2017-08-24] MEDS: PIPERACIL-TAZO 4.5 GM PREMIX 100 ML IV SCH ×4 (03:51→20:42)
[2017-08-24 04:52] LABS: AUTOMATED NEUTROPHIL # 8.8 TH/MM3 (1.8-7.7); BASOPHIL % 0.1 % (0.0-2.0); EOSINOPHIL % 0.3 % (0.0-4.0); HEMATOCRIT 34.7 % (39.0-51.0); HEMOGLOBIN 11.8 GM/DL (13.0-17.0); MEAN CELL VOLUME 86.9 FL (80.0-100.0); MEAN CORPUSCULAR HEMOGLOBIN 29.6 PG (27.0-34.0); MEAN CORPUSCULAR HGB CONC 34.1 % (32.0-36.0); MEAN PLATELET VOLUME 7.7 FL (7.0-11.0); MONO % 4.3 % (0.0-8.0); MONOCYTE # 0.4 TH/MM3 (0-0.9); NEUT % 85.3 % (16.0-70.0); PLATELET COUNT 574 TH/MM3 (150-450); RED BLOOD COUNT 3.99 MIL/MM3 (4.50-5.90); RED CELL DISTRIBUTION WIDTH 17.3 % (11.6-17.2); WHITE BLOOD COUNT 10.3 TH/MM3 (4.0-11.0)
[2017-08-24 05:14] LABS: BICARBONATE 18.7 MEQ/L (21.0-32.0); CALCIUM 7.7 MG/DL (8.5-10.1); CREATININE 0.81 MG/DL (0.60-1.30)
--- NOTE | 2017-08-24 06:53 | RADRPT ---
EXAM DATE/TIME: 08/24/2017 06:16 [facility] COMPARISON: CHEST EXPIRATION ONLY, August 20, 2017, 13:49. CHEST SINGLE AP, August 19, 2017, 3:48. INDICATIONS : Short of breath, evaluate for pneumonia, pneumothorax and right side chest tube MEDICAL HISTORY : Sepsis. pneumonia SURGICAL HISTORY : thoracotomy, chest tube ENCOUNTER: Subsequent ACUITY: 4 - 6 days PAIN SCORE: 0/10 LOCATION: Right chest FINDINGS: A single view of the chest demonstrates right-sided total thoracostomy tube. No significant effusion. No pneumothorax. Left basilar consolidation/effusion persists. Heart size is normal. Osseous structu res are intact. CONCLUSION: 1. Right thoracostomy tube is unchanged in position. No significant right-sided effusion. No pneumoth orax. 2. Persistent left basilar consolidation/effusion Darrick Cunha MD on August 24, 2017 at 6:49 Board Certified Radiologist. This report was verified electronically.
[2017-08-24] MEDS: METOPROLOL TARTRATE 25 MG TAB PO SCH ×2 (08:42→20:42)
[2017-08-24] MEDS: ENOXAPARIN SODIUM 40 MG/0.4 ML SYRINGE SQ SCH (08:43)
[2017-08-24] MEDS: SODIUM CHLORIDE 0.9% FLUSH 10 ML FLUSH IV FLUSH SCH ×2 (08:43→20:42)
[2017-08-24] MEDS: methylPREDNISolone SOD SUCC 40 MG/1 ML VIAL IV PUSH SCH ×2 (08:43→20:43)
--- NOTE | 2017-08-24 13:37 | HHI.PR ---
Subjective Remarks Patient denied any chest pain fever or chills, Objective Vitals Vital Signs Date Time Temp Pulse Resp B/P (MAP) Pulse Ox O2 Delivery O2 Flow Rate FiO2 08/24/17 12:00 99.1 64 20 107/63 (78) 95 08/24/17 12:00 57 08/24/17 08:00 58 08/24/17 08:00 98.3 63 20 117/71 (86) 96 08/24/17 07:00 Room Air 08/24/17 05:48 98.7 64 18 121/64 (83) 95 08/24/17 04:08 Room Air 08/24/17 04:00 62 08/24/17 01:03 98.5 66 18 133/81 (98) 95 08/24/17 00:00 Room Air 08/24/17 00:00 56 08/23/17 20:00 99.3 68 16 121/73 (89) 94 08/23/17 20:00 Room Air 08/23/17 20:00 67 08/23/17 14:58 97.8 64 19 118/75 (89) 94 08/23/17 14:00 62 I/O 08/23/17 08/23/17 08/23/17 08/24/17 08/24/17 08/24/17 07:00 15:00 23:00 07:00 15:00 23:00 Intake Total 220 ml Output Total 960 ml 875 ml 10 ml Balance -740 ml -875 ml -10 ml Intake Oral 120 ml IV Total 100 ml Output Urine Total 950 ml 875 ml Chest Tube Drainage Total 10 ml 10 ml # Bowel Movements 0 0 Result Diagram: 08/24/17 0330 08/24/17 0330 Objective Remarks GENERAL: This is a well-nourished, well-developed patient, in no apparent distress. SKIN: No rashes, warm and dry HEAD: Atraumatic. Normocephalic. EYES: Pupils equal round and reactive. Extraocular motions intact. No scleral icterus. ENT: Nose without bleeding, or drainage, Airway patent. NECK: Trachea midline. Supple CARDIOVASCULAR: Regular rate and rhythm without murmurs, gallops, or rubs. RESPIRATORY: Decreased breath sounds on the right side GASTROINTESTINAL: Abdomen soft, non-tender, nondistended. Positive bowel sounds MUSCULOSKELETAL: Extremities without clubbing, cyanosis, or edema. Pedal pulses appreciated NEUROLOGICAL: Awake and alert. Moves all extremity. Normal speech.no focal neurological deficit Procedures Chest tube placement 08/20 A/P Problem List: (1) Sepsis ICD Code: A41.9 - Sepsis, unspecified organism Status: Acute (2) Pneumonia ICD Code: J18.9 - Pneumonia, unspecified organism Status: Acute (3) Pleural effusion on right ICD Code: J90 - Pleural effusion, not elsewhere classified Assessment and Plan 57 years old man with 5/3: Continue chest tube management per pulmonology, follow ID recommendation for antibiotic, monitor temperature and CBC CAP Chest tube in place, 08/19 CT: Bibasilar consolidation; Large right and small left pleural effusion; Confluent density left upper lobe measures 3.7 cm; This is likely infectious or inflammatory. ID consult appreciated. 2D echo-EF 50-55%, mild MVR, moderate TR. Appreciate pulmonology consult. S/p CT guided thoracentesis (exudate) and chest tube placement by IR 08/20. - Continue with oxygen keep sats >92%. - Bronchodilators. - Decrease Solu Medrol to 20 mg IV BID. - Incentive spirometry while awake. - pulmonology following. - follow cultures from thoracentesis. -Continue azithromycin and Zosyn per ID. Vancomycin was d/kevin - PT. Anemia Hemoglobin is stable. - follow CBC and transfuse as needed. Alcohol abuse - Watch for signs of DT's. On CIWA protocol. - Continue with Thiamine/MVI/Folic acid. Hypertension Start Lopressor 25 mg twice daily Hypokalemia -Replace electrolytes and monitor PPx: Lovenox Problem Qualifiers (1) Sepsis: Qualified Codes: A41.9 - Sepsis, unspecified organism (2) Pneumonia: Qualified Codes: J18.1 - Lobar pneumonia, unspecified organism Ermelinda Buitrago MD August 24, 2017 13:37
[2017-08-24] MEDS: AZITHROMYCIN INJ 500 MG in SODIUM CHLOR 0.9% 250 ML INJ 250 ML IV SCH (15:05)
--- NOTE | 2017-08-24 15:43 | HHI.PR ---
Subjective Remarks 57 YO male with Lung infilt,CHRISTINE density, pl eff Right chest tube drained [address] fluid exudate No Fever Weaned to RA Family at [facility] Breathing better Objective Vital Signs Vital Signs Date Time Temp Pulse Resp B/P (MAP) Pulse Ox O2 Delivery O2 Flow Rate FiO2 08/24/17 12:00 99.1 64 20 107/63 (78) 95 08/24/17 12:00 57 08/24/17 08:00 58 08/24/17 08:00 98.3 63 20 117/71 (86) 96 08/24/17 07:00 Room Air 08/24/17 05:48 98.7 64 18 121/64 (83) 95 08/24/17 04:08 Room Air 08/24/17 04:00 62 08/24/17 01:03 98.5 66 18 133/81 (98) 95 08/24/17 00:00 Room Air 08/24/17 00:00 56 08/23/17 20:00 99.3 68 16 121/73 (89) 94 08/23/17 20:00 Room Air 08/23/17 20:00 67 I/O 08/23/17 08/23/17 08/23/17 08/24/17 08/24/17 08/24/17 07:00 15:00 23:00 07:00 15:00 23:00 Intake Total 220 ml Output Total 960 ml 875 ml 10 ml Balance -740 ml -875 ml -10 ml Intake Oral 120 ml IV Total 100 ml Output Urine Total 950 ml 875 ml Chest Tube Drainage Total 10 ml 10 ml # Bowel Movements 0 0 Result Diagram: 08/24/17 0330 08/24/17 0330 Objective Remarks GENERAL: WBWN male,NAD SKIN: Warm and dry. HEAD: Normocephalic. EYES: No scleral icterus. No injection or drainage. NECK: Supple, trachea midline. No JVD or lymphadenopathy. CARDIOVASCULAR: Regular rate and rhythm without murmurs, gallops, or rubs. RESPIRATORY: Breath sounds equal bilaterally. No accessory muscle use. Right chest tube draining GASTROINTESTINAL: Abdomen soft, non-tender, nondistended. MUSCULOSKELETAL: No cyanosis, or edema. BACK: Nontender without obvious deformity. No CVA tenderness. A/P Assessment and Plan IMPRESSION: 1. Pneumonia. 2. Pleural effusion., Parapneumonic 3. Left upper lobe infiltrate versus density. 4. Leukocytosis. PLAN: Chest tube to suction Cont Abx Check pl fluid results DW pt and his at [facility] IR to dc chest tube Obed Slaughter MD August 24, 2017 15:43
[2017-08-25] VITALS (14 sets, daily range): BP systolic 93–119; BP diastolic 53–71; PULSE 56–80; RESP 18–22; TEMP 96–99; O2SAT 94–98
[2017-08-25] MEDS: PIPERACIL-TAZO 4.5 GM PREMIX 100 ML IV SCH ×4 (02:58→22:39)
[2017-08-25] MEDS: methylPREDNISolone SOD SUCC 40 MG/1 ML VIAL IV PUSH SCH ×2 (09:16→22:39)
[2017-08-25] MEDS: ENOXAPARIN SODIUM 40 MG/0.4 ML SYRINGE SQ SCH (09:16)
[2017-08-25] MEDS: METOPROLOL TARTRATE 25 MG TAB PO SCH ×2 (09:17→22:39)
[2017-08-25] MEDS: SODIUM CHLORIDE 0.9% FLUSH 10 ML FLUSH IV FLUSH SCH ×2 (09:17→22:39)
[2017-08-25] MEDS ORDERED: PRED5PAK PO (13:41)
[2017-08-25] MEDS ORDERED: METO25TA3 PO (13:41)
--- NOTE | 2017-08-25 13:55 | RADRPT ---
EXAM DATE/TIME: 08/25/2017 13:24 [facility] COMPARISON: CHEST SINGLE AP, August 24, 2017, 6:16. INDICATIONS : Chest tube removal. MEDICAL HISTORY : Sepsis. pneumonia SURGICAL HISTORY : thoracotomy, chest tube ENCOUNTER: Subsequent ACUITY: 4 - 6 days PAIN SCORE: 0/10 LOCATION: Bilateral chest FINDINGS: Negative for pneumothorax. Persistent consolidative changes right base. New minimal parenchymal padmini nges left base. The heart and pulmonary vascularity are normal. CONCLUSION: Negative for pneumothorax. Wayne Jaeger MD FACR on August 25, 2017 at 13:52 Board Certified Radiologist. This report was verified electronically.
--- NOTE | 2017-08-25 15:09 | RADRPT ---
EXAM DATE/TIME: 08/25/2017 06:00 [facility] COMPARISON: CHEST SINGLE AP, August 25, 2017, 13:24. INDICATIONS : PLEURAL EFFUSION DEVICE(S): 1.) Vaseline occlusive dressing PROCEDURE : Chest tube removal. Using aseptic technique the previously placed chest tube was easily removed in one piece and Vaseline gauze and sterile dressing was applied. Chest radiograph is to be obtained. CONCLUSION: Uncomplicated chest tube removal. Fam Atkins MD on August 25, 2017 at 15:07 Board Certified Radiologist. This report was verified electronically.
--- NOTE | 2017-08-25 15:30 | HHI.IDPN ---
Subjective Subjective Remarks no fever on RA doing well CT was removed Antibiotics azithro zosyn Allergies: Coded Allergies: No Known Allergies (Unverified Allergy, Unknown, 08/15/17) Objective . Vital Signs Date Time Temp Pulse Resp B/P (MAP) Pulse Ox O2 Delivery O2 Flow Rate FiO2 08/25/17 12:38 68 08/25/17 12:00 98.6 61 22 111/65 (80) 94 08/25/17 10:57 80 08/25/17 08:31 76 08/25/17 08:00 98.6 56 22 111/63 (79) 95 08/25/17 07:42 78 08/25/17 07:42 Room Air 08/25/17 04:25 96.0 58 18 93/53 (66) 95 08/25/17 04:00 Room Air 08/25/17 04:00 64 08/25/17 00:09 99.0 61 18 119/71 (87) 98 08/25/17 00:00 57 08/25/17 00:00 Room Air 08/24/17 20:00 98.3 71 20 102/63 (76) 96 08/24/17 20:00 68 08/24/17 20:00 Room Air 08/24/17 17:57 66 08/24/17 16:00 98.8 70 20 99/61 (74) 95 . Laboratory Tests Test 08/24/17 03:30 White Blood Count 10.3 TH/MM3 Red Blood Count 3.99 MIL/MM3 Hemoglobin 11.8 GM/DL Hematocrit 34.7 % Mean Corpuscular Volume 86.9 FL Mean Corpuscular Hemoglobin 29.6 PG Mean Corpuscular Hemoglobin Concent 34.1 % Red Cell Distribution Width 17.3 % Platelet Count 574 TH/MM3 Mean Platelet Volume 7.7 FL Neutrophils (%) (Auto) 85.3 % Lymphocytes (%) (Auto) 10.0 % Monocytes (%) (Auto) 4.3 % Eosinophils (%) (Auto) 0.3 % Basophils (%) (Auto) 0.1 % Neutrophils # (Auto) 8.8 TH/MM3 Lymphocytes # (Auto) 1.0 TH/MM3 Monocytes # (Auto) 0.4 TH/MM3 Eosinophils # (Auto) 0.0 TH/MM3 Basophils # (Auto) 0.0 TH/MM3 CBC Comment DIFF FINAL Differential Comment Laboratory Tests Test 08/24/17 03:30 Blood Urea Nitrogen 20 MG/DL Creatinine 0.81 MG/DL Random Glucose 102 MG/DL Calcium Level 7.7 MG/DL Sodium Level 133 MEQ/L Potassium Level 4.1 MEQ/L Chloride Level 105 MEQ/L Carbon Dioxide Level 18.7 MEQ/L Anion Gap 9 MEQ/L Estimat Glomerular Filtration Rate 99 ML/MIN Imaging Last Impressions Chest X-Ray 08/25/17 1330 Signed Impressions: Service Date/Time: Friday, August 25, 2017 13:24 - CONCLUSION: Negative for pneumothorax. Wayne Jaeger MD FACR Tunnelled Chest Tube Removal 08/25/17 0600 Signed Impressions: Service Date/Time: Friday, August 25, 2017 06:00 - CONCLUSION: Uncomplicated chest tube removal. Fam Atkins MD Chest Tube Insertion 08/20/17 0000 Signed Impressions: Service Date/Time: Sunday, August 20, 2017 12:54 - CONCLUSION: Uncomplicated CT-guided thoracentesis. 1000 cc of straw-colored fluid was immediately removed and sent to laboratory for analysis. Darrick Cunha MD Chest CT 08/19/17 0000 Signed Impressions: Service Date/Time: Saturday, August 19, 2017 22:21 - CONCLUSION: 1. Bibasilar consolidation. 2. Large right and small left pleural effusion. 3. Confluent density left upper lobe measures 3.7 cm. This is likely infectious or inflammatory. Nader Cisneros MD Chest Ultrasound 08/16/17 0000 Signed Impressions: Service Date/Time: Wednesday, August 16, 2017 20:34 - CONCLUSION: Right pleural effusion is too small for safe drainage. Peng Krishnan MD Physical Exam CONSTITUTIONAL/GENERAL: This is an adequately nourished patient, in no apparent distress. TUBES/LINES/DRAINS: SKIN: No jaundice, rashes, or lesions. Skin temperature appropriate. Not diaphoretic. NECK: Trachea midline. Supple, nontender. No palpable thyroid enlargement or nodularity. CARDIOVASCULAR: Regular rate and rhythm without murmurs, gallops, or rubs. No JVD. Peripheral pulses symmetric. RESPIRATORY/CHEST: Symmetric, unlabored respirations. Clear to auscultation. Breath decreased R base. No wheezes, rales, or rhonchi. CT in place R side with fairly clear serous drainage GASTROINTESTINAL: Abdomen soft, non-tender, nondistended. No hepato-splenomegaly , or palpable masses. No guarding. Bowel sounds present. GENITOURINARY: Without palpable bladder distension. MUSCULOSKELETAL: Extremities without clubbing, cyanosis, or edema. No joint tenderness or effusion noted. No calf tenderness. No mottling or clubbing. LYMPHATICS: No palpable cervical or supraclavicular adenopathy. NEUROLOGICAL: Awake and alert. Motor and sensory grossly within normal limits. Follows commands. Clear speech. Moves all extremities. PSYCHIATRIC: calm cooperative Assessment & Plan Remarks PNA, with parapneumonic effusion( b/l infiltrates, feverr, pleuritic chest pain and marked leukocytosis) - unable to espectorate - worsening CXR - requiring more NC O2 R side infilatreate and effusion: sp CT placement - exsudative - clx are negative CT was removed 2 D echo with nl LVSF Leukocytosis - resolved dc abx - pt was 10 days on abx OK to dc home from [facility] Hidalgo MD August 25, 2017 15:30
[2017-08-25] MEDS: AZITHROMYCIN INJ 500 MG in SODIUM CHLOR 0.9% 250 ML INJ 250 ML IV SCH (16:00)
--- NOTE | 2017-08-25 18:08 | HHI.PR ---
Subjective Remarks 57 YO male with Lung infilt,CHRISTINE density, pl eff Pl fluid exudate No Fever Weaned to RA Family at BS Breathing better Chest tube removed Objective Vital Signs Vital Signs Date Time Temp Pulse Resp B/P (MAP) Pulse Ox O2 Delivery O2 Flow Rate FiO2 08/25/17 17:29 08/25/17 16:02 64 08/25/17 15:55 64 08/25/17 12:38 68 08/25/17 12:00 98.6 61 22 111/65 (80) 94 08/25/17 10:57 80 08/25/17 08:31 76 08/25/17 08:00 98.6 56 22 111/63 (79) 95 08/25/17 07:42 78 08/25/17 07:42 Room Air 08/25/17 04:25 96.0 58 18 93/53 (66) 95 08/25/17 04:00 Room Air 08/25/17 04:00 64 08/25/17 00:09 99.0 61 18 119/71 (87) 98 08/25/17 00:00 57 08/25/17 00:00 Room Air 08/24/17 20:00 98.3 71 20 102/63 (76) 96 08/24/17 20:00 68 08/24/17 20:00 Room Air I/O 08/24/17 08/24/17 08/24/17 08/25/17 08/25/17 08/25/17 07:00 15:00 23:00 07:00 15:00 23:00 Intake Total 100 ml 580 ml 580 ml Output Total 10 ml 1125 ml Balance 90 ml -545 ml 580 ml Intake Oral 480 ml 480 ml IV Total 100 ml 100 ml 100 ml Output Urine Total 1125 ml Chest Tube Drainage Total 10 ml # Voids 3 # Bowel Movements 1 Result Diagram: 08/24/17 0330 08/24/17 033 Objective Remarks GENERAL: WBWN male,NAD SKIN: Warm and dry. HEAD: Normocephalic. EYES: No scleral icterus. No injection or drainage. NECK: Supple, trachea midline. No JVD or lymphadenopathy. CARDIOVASCULAR: Regular rate and rhythm without murmurs, gallops, or rubs. RESPIRATORY: Breath sounds equal bilaterally. No accessory muscle use. Right chest tube draining GASTROINTESTINAL: Abdomen soft, non-tender, nondistended. MUSCULOSKELETAL: No cyanosis, or edema. BACK: Nontender without obvious deformity. No CVA tenderness. A/P Assessment and Plan IMPRESSION: 1. Pneumonia. 2. Pleural effusion., Parapneumonic 3. Left upper lobe infiltrate versus density. 4. Leukocytosis. PLAN: Cont Abx per ID Check pl fluid results DW pt and his at BS Stable from Pulm standpoint Available prn over weekend Obed Slaughter MD August 25, 2017 18:08
--- NOTE | 2017-08-25 20:16 | HHI.PR ---
Subjective Remarks Resting in bed doing well he is pleasant Chest tube removed Objective Vitals Vital Signs Date Time Temp Pulse Resp B/P (MAP) Pulse Ox O2 Delivery O2 Flow Rate FiO2 08/25/17 18:15 66 08/25/17 17:29 08/25/17 16:02 64 08/25/17 15:55 64 08/25/17 12:38 68 08/25/17 12:00 98.6 61 22 111/65 (80) 94 08/25/17 10:57 80 08/25/17 08:31 76 08/25/17 08:00 98.6 56 22 111/63 (79) 95 08/25/17 07:42 78 08/25/17 07:42 Room Air 08/25/17 04:25 96.0 58 18 93/53 (66) 95 08/25/17 04:00 Room Air 08/25/17 04:00 64 08/25/17 00:09 99.0 61 18 119/71 (87) 98 08/25/17 00:00 57 08/25/17 00:00 Room Air I/O 08/24/17 08/24/17 08/24/17 08/25/17 08/25/17 08/25/17 07:00 15:00 23:00 07:00 15:00 23:00 Intake Total 100 ml 580 ml 580 ml 680 ml Output Total 10 ml 1125 ml Balance 90 ml -545 ml 580 ml 680 ml Intake Oral 480 ml 480 ml 480 ml IV Total 100 ml 100 ml 100 ml 200 ml Output Urine Total 1125 ml Chest Tube Drainage Total 10 ml # Voids 3 3 # Bowel Movements 1 2 Result Diagram: 08/24/17 0330 08/24/17 0330 Objective Remarks GENERAL: This is a well-nourished, well-developed patient, in no apparent distress. SKIN: No rashes, warm and dry HEAD: Atraumatic. Normocephalic. EYES: Pupils equal round and reactive. Extraocular motions intact. No scleral icterus. ENT: Nose without bleeding, or drainage, Airway patent. NECK: Trachea midline. Supple CARDIOVASCULAR: Regular rate and rhythm without murmurs, gallops, or rubs. RESPIRATORY: Decreased breath sounds on the right side GASTROINTESTINAL: Abdomen soft, non-tender, nondistended. Positive bowel sounds MUSCULOSKELETAL: Extremities without clubbing, cyanosis, or edema. Pedal pulses appreciated NEUROLOGICAL: Awake and alert. Moves all extremity. Normal speech.no focal neurological deficit Procedures Chest tube placement 08/20 A/P Problem List: (1) Sepsis ICD Code: A41.9 - Sepsis, unspecified organism Status: Acute (2) Pneumonia ICD Code: J18.9 - Pneumonia, unspecified organism Status: Acute (3) Pleural effusion on right ICD Code: J90 - Pleural effusion, not elsewhere classified (4) Weakness ICD Code: R53.1 - Weakness Assessment and Plan 57 years old man with 08/25: Chest tube removed, patient doing well, ID and pulmonology following, discharge when cleared by both, we need chest x-ray negative post chest tube removal CAP Chest tube in place, 08/19 CT: Bibasilar consolidation; Large right and small left pleural effusion; Confluent density left upper lobe measures 3.7 cm; This is likely infectious or inflammatory. ID consult appreciated. 2D echo-EF 50-55%, mild MVR, moderate TR. Appreciate pulmonology consult. S/p CT guided thoracentesis (exudate) and chest tube placement by IR 08/20. - Continue with oxygen keep sats >92%. - Bronchodilators. - Decrease Solu Medrol to 20 mg IV BID. - Incentive spirometry while awake. - pulmonology following. - follow cultures from thoracentesis. -Continue azithromycin and Zosyn per ID. Vancomycin was d/kevin - PT. Anemia Hemoglobin is stable. - follow CBC and transfuse as needed. Alcohol abuse - Watch for signs of DT's. On CIWA protocol. - Continue with Thiamine/MVI/Folic acid. Hypertension Start Lopressor 25 mg twice daily Hypokalemia -Replace electrolytes and monitor PPx: Lovenox Problem Qualifiers (1) Sepsis: Qualified Codes: A41.9 - Sepsis, unspecified organism (2) Pneumonia: Ermelinda Buitrago MD August 25, 2017 20:16
[2017-08-26 00:05] VITALS: BP 113/67; PULSE 60; RESP 20; TEMP 98.6; O2SAT 95
[2017-08-26 04:09] VITALS: BP 105/62; PULSE 55; RESP 20; TEMP 98.4; O2SAT 97
[2017-08-26] MEDS: PIPERACIL-TAZO 4.5 GM PREMIX 100 ML IV SCH (04:09)
[2017-08-26 08:00] VITALS: BP 97/62; PULSE 56; RESP 18; TEMP 98.2; O2SAT 96
[2017-08-26] MEDS: ENOXAPARIN SODIUM 40 MG/0.4 ML SYRINGE SQ SCH (08:19)
[2017-08-26] MEDS: methylPREDNISolone SOD SUCC 40 MG/1 ML VIAL IV PUSH SCH (08:20)
[2017-08-26] MEDS: SODIUM CHLORIDE 0.9% FLUSH 10 ML FLUSH IV FLUSH SCH (08:20)
[2017-08-26] MEDS: METOPROLOL TARTRATE 25 MG TAB PO SCH (08:20)
[2017-08-26] MEDS ORDERED: WALKER WHEELS/F1 MIS (09:19)
[2017-08-26 12:00] VITALS: BP 93/55; PULSE 72; RESP 18; TEMP 98.5; O2SAT 95
--- NOTE | 2017-08-27 15:28 | HHI.DS ---
Discharge Summary Admission Date Aug 15, 2017 at 16:49 Discharge Date: August 26, 2017 Admitting Diagnosis acute bilateral pneumonia, severe sepsis (1) Sepsis ICD Code: A41.9 - Sepsis, unspecified organism Status: Acute (2) Pneumonia ICD Code: J18.9 - Pneumonia, unspecified organism Status: Acute (3) Pleural effusion on right ICD Code: J90 - Pleural effusion, not elsewhere classified (4) Weakness ICD Code: R53.1 - Weakness Procedures Chest tube placement 08/20 Brief History - From Admission hx from patient, ER PA communication and review of records pt is a maltese speaker and family at bedside help translate per patient's choice having pain in his chest and bilateral ribs starting yesterday this am was could not breathe no cough no sputum fever no nausea, no vomiting, no diarrhea no long distance travel no sick contacts no NH or [facility]IOR [facility] hx claims short of breath is only this am but he worked on monday afternoon and could not work today or yesterday works in [employer] business was taking nyquil at home for soar throat CBC/BMP: 08/24/17 0330 08/24/17 0330 PE at Discharge GENERAL: This is a well-nourished, well-developed patient, in no apparent distress. SKIN: No rashes, warm and dry HEAD: Atraumatic. Normocephalic. EYES: Pupils equal round and reactive. Extraocular motions intact. No scleral icterus. ENT: Nose without bleeding, or drainage, Airway patent. NECK: Trachea midline. Supple CARDIOVASCULAR: Regular rate and rhythm without murmurs, gallops, or rubs. RESPIRATORY: Decreased breath sounds on the right side GASTROINTESTINAL: Abdomen soft, non-tender, nondistended. Positive bowel sounds MUSCULOSKELETAL: Extremities without clubbing, cyanosis, or edema. Pedal pulses appreciated NEUROLOGICAL: Awake and alert. Moves all extremity. Normal speech.no focal neurological deficit Hospital Course 57 years old man admitted with community-acquired pneumonia with large pleural effusion patient needed chest tube CT-guided thoracentesis which was exudate, needed chest tube placement, pulmonology and ID consulted placed on 10 days of IV antibiotic, patient improved, chest tube removed, chest x-ray following removal no pneumothorax, cleared by ID to be discharged with no antibiotic patient completed 10 days of IV antibiotic. [id number] encounter performed with the patient on discharge day, as well as physical exam, summary of hospitalization course and postdischarge plan has been D/W the patient. D/W nurse D/W manager of case. Discharge medications reviewed and printed and signed, post discharge follow up visit with PCP and other specialist as well as Brief hospital course and discharge summary has been placed. Pt Condition on Discharge: Fair Discharge Disposition: Discharge Home Discharge Time: > 30 minutes Discharge Instructions DIET: Follow Instructions for: Heart Healthy Diet Activities you can perform: See Additionl Instruction Other Activity Instructions: PT recs New Medications: Prednisone (21) 5 mg tab Dose Pack (Prednisone (21) 5 mg tab Dose Pack) 5 Mg Dspk 5 MG PO DIRECTED for Inflammation, #1 DSPK 0 Refills Walker with Front Wheels (Walker with Front Wheels) 1 Mis Mis EA .XX DIRECTED for weakness, #1 0 Refills Metoprolol Tartrate (Metoprolol Tartrate) 25 Mg Tab 25 MG PO Q12HR for htn, #60 TAB Ermelinda Buitrago MD August 27, 2017 15:28
== END 2017-08-26 14:46 | disposition home or self-care (01) | DRG 871 ==
LOC: NEPE 13:44 → NEDA 16:49 → N04B 18:16 → HIME 20:45 → N04A 08-23 15:00
PROVIDERS: ADMIT Hospitalist; ATTEND Hospitalist
PROC: 0W9930Z Drainage of Right Pleural Cavity with Drainage Device, Percutaneous Approach (ICD-10-PCS; principal; 2017-08-20)
DX: A41.9 Sepsis, unspecified organism (principal); J18.9 Pneumonia, unspecified organism; E87.2 Acidosis; J90 Pleural effusion, not elsewhere classified; R65.20 Severe sepsis without septic shock; R00.0 Tachycardia, unspecified; R06.03 Acute respiratory distress; R09.02 Hypoxemia; F10.10 Alcohol abuse, uncomplicated; D64.9 Anemia, unspecified; E87.6 Hypokalemia; E88.09 Other disorders of plasma-protein metabolism, not elsewhere classified; I10 Essential (primary) hypertension; R53.1 Weakness
CPT/HCPCS: 32557; 36600; 71045; 71046; 71250; 76604; 80048; 80053; 80202; 81001; 82150; 82550; 82805; 82945; 83605; 83615; 83690; 83735; 83880; 83986; 84100; 84132; 84157; 84484; 85007; 85025; 85027; 85610; 85730; 87015; 87040; 87070; 87081; 87102; 87116; 87205; 87206; 87449; 87633; 87641; 87804; 87880; 88112; 89051; 93005; 93306; 94150; 94640; 94664; 96365; 96368; C1729; C1769; J0360; J0456; J0696; J1650; J1885; J2060; J2543; J2920; J3010; J3370; J3411; J3480; J7030; J7040; J7050